=== PATIENT | female | born 1960 ===

== ENCOUNTER 2018-07-28 09:09 | Inpatient (IN) | payer OTHER ==
[2018-07-28] MEDS ORDERED: Morphine 4 mg/ml ISec IVP STA ×2 (10:36→14:57)
--- NOTE | 2018-07-28 11:25 | RAD ---
Date of service: 07/28/2018 HISTORY: CP COMPARISON: 07/27/2014 FINDINGS: LUNGS: Opacity at right base possibly subsegmental atelectasis, versus pneumonia. Follow-up advised.. PLEURA: Elevated right hemidiaphragm. Opacity at right costophrenic angle may reflect small pleural effusion, new since prior examination. No left pleural effusion. No pneumothorax. CARDIOVASCULAR: No aortic atherosclerotic calcification present. Normal cardiac size. No pulmonary vascular congestion. OSSEOUS STRUCTURES: No significant abnormalities. VISUALIZED UPPER ABDOMEN: Normal. OTHER FINDINGS: None. IMPRESSION: Opacity at right base, possibly subsegmental atelectasis, versus pneumonia. Follow-up advised. Possible small right pleural effusion. Mildly elevated right hemidiaphragm.
--- NOTE | 2018-07-28 11:45 | ED PDOC ---
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 Patient states worsening symptoms this morning with sudden onset of midsternal CP described as heaviness with radiation of pain to the top of her head, then radiating to the rest of the R side of her body. Patient states similar body aches in the past secondary to lupus and informs taking flexeril and oxycodone at home when symptoms exacerbate. Patient additionally informs associated nausea, dizziness and dysuria but denies any other somatic complaints. Patient states that she was recently examined by her pmd and was advised that she has a mass in the L breast that needs further evaluation with US or mammogram. Patient denies any fever, chills, abdominal pain, diarrhea, urinary frequency, hematuria, back pain, dizziness, shortness of breath, neck pain, or any other complaints. PMD: Dr. Dozier Time/Duration: 1 week Symptom Onset: Gradual Symptom Course: Unchanged Activities at Onset: Light Context: Home Past Medical History - Provider Review Nursing Documentation Reviewed: Yes - Tetanus Immunization Tetanus Immunization: Unknown - Cardiac Hx Cardiac Disorders: No - Pulmonary Hx Respiratory Disorders: Yes Hx Asthma: Yes Hx Bronchitis: Yes Hx Pneumonia: Yes - Neurological Hx Neurological Disorder: No - HEENT Hx HEENT Disorder: Yes - Renal Hx Renal Disorder: Yes Hx Kidney Stones: Yes - Endocrine/Metabolic Hx Endocrine Disorders: Yes Hx Systemic Lupus Erythematosus: Yes - Hematological/Oncological Hx Blood Disorders: No - Integumentary Hx Dermatological Disorder: No - Musculoskeletal/Rheumatological Hx Musculoskeletal Disorders: Yes Hx Back Pain: Yes Hx Fractures: Yes - Gastrointestinal Hx Gastrointestinal Disorders: Yes Hx Gastroesophageal Reflux: Yes Hx Gastrointestinal Ulcer: Yes - Genitourinary/Gynecological Hx Genitourinary Disorders: Yes (BREAST TUMOR REMOVED(BENIGN) RIGHT,MYOMECTOMY,OVARIAN CYST,LUMPECTOMY RIGHT) - Psychiatric Hx Psychophysiologic Disorder: Yes Hx Anxiety: Yes Hx Substance Use: No - Surgical History Hx Appendectomy: Yes Hx Cholecystectomy: Yes Hx Hysterectomy: Yes Other/Comment: LAPAROSCOPY - Suicidal Assessment Feels Threatened In Home Enviroment: No Family/Social History - Physician Review Nursing Documentation Reviewed: Yes Family/Social History: Unknown Family HX Smoking Status: Heavy Smoker > 10 Cigarettes Daily Hx Alcohol Use: Yes Hx Substance Use: No Hx Substance Use Treatment: No Allergies/Home Meds Allergies/Adverse Reactions: Allergies erythromycin base Allergy (Verified 07/28/18 09:30) ANAPHYLAXIS Iodinated Contrast- Oral and IV Dye Allergy (Verified 07/28/18 09:30) ANAPHYLAXIS Penicillins Allergy (Verified 07/28/18 09:30) ANAPHYLAXIS shellfish derived Allergy (Verified 07/28/18 09:30) ANAPHYLAXIS IV Dye Allergy (Uncoded 09/30/14 14:03) ANAPHYLAXIS Home Medications: Home Meds Medication Instructions Recorded Confirmed Albuterol HFA [Ventolin HFA 90 1 puff INH QID 10/02/13 07/28/18 mcg/actuation (8 g)] Oxycodone Hydrochloride [Oxycodone 5 mg PO BID 10/02/13 07/28/18 HCl] Review of Systems - Physician Review All systems were reviewed & negative as marked: Yes - Review of Systems Constitutional: absent: Fevers Respiratory: absent: SOB Cardiovascular: Chest Pain (chest heaviness) Gastrointestinal: Nausea. absent: Abdominal Pain, Diarrhea, Vomiting Genitourinary Female: Dysuria Musculoskeletal: Other (generalized body aches). absent: Back Pain, Neck Pain Skin: absent: Rash Neurological: absent: Dizziness Psychiatric: absent: Anxiety, Depression Physical Exam Vital Signs Reviewed: Yes Vital Signs Temp Pulse Resp BP Pulse Ox 07/28/18 10:16 98.2 F 95 H 17 120/78 98 07/28/18 09:31 98.5 F 92 H 19 144/81 98 Temperature: Afebrile Blood Pressure: Normal Pulse: Regular Respiratory Rate: Normal Appearance: Positive for: Well-Appearing, Non-Toxic, Comfortable Pain Distress: Moderate Mental Status: Positive for: Alert and Oriented X 3 - Systems Exam Head: Present: Atraumatic, Normocephalic Pupils: Present: PERRL Extroacular Muscles: Present: EOMI Conjunctiva: Present: Normal Mouth: Present: Moist Mucous Membranes Neck: Present: Normal Range of Motion. No: Meningeal Signs, Lymphadenopathy Respiratory/Chest: Present: Clear to Auscultation, Good Air Exchange. No: Respiratory Distress, Accessory Muscle Use Cardiovascular: Present: Regular Rate and Rhythm, Normal S1, S2. No: Murmurs Abdomen: No: Tenderness, Distention, Peritoneal Signs Back: Present: Normal Inspection Upper Extremity: Present: Normal Inspection. No: Cyanosis, Edema Lower Extremity: Present: Normal Inspection. No: Edema Neurological: Present: GCS=15, CN II-XII Intact, Speech Normal, Motor Func Grossly Intact, Normal Sensory Function Skin: Present: Warm, Dry, Normal Color. No: Rashes Psychiatric: Present: Alert, Oriented x 3, Normal Insight, Normal Concentration Medical Decision Making ED Course and Treatment: 07/28/18 10:35 Impression: 58 year old female presents to the Emergency department complaining of generalized body aches. Plan: -- EKG -- Labs -- Chest X-ray -- Flexeril -- Morphine -- Zofran -- Urine Culture -- Urinalysis -- Reassess and disposition Prior Visits: Notes and results from previous visits were reviewed. Progress Notes: CXR : Opacity at right base, possibly segmental atelectasis, versus pneumonia. Possible small right pleural effusion. Mildly elevated right hemidiaphragm. Malcolm Blackwell MD. (Patient had a normal CXR on 07/27/14) EKG: NSR at 89 bpm, prolonged QT, (-) acute ST changes, as read by GARFIELD. Labs reviewed : wbc 7.1, d-dimer 671, trop (-), UA + UTI. Patient has a strong PCN allergy with development of rash and facial swelling as per patinet. Levaquin 750 mg IV ordered to treat UTI and possible pneumonia. On reevaluation, patient reports mild improvement of pain, still c/o pain to the R lower rib, denies any SOB, N/V. On exam, patient remains awake alert and oriented 3 in mild painful distress. Diagnostic results reviewed with the patient, considering that the patient's d-dimer is (+) with strong h/o breast cancer, VQ scan ordered to r/o PE since the patient is allergic to IV contrast dye. Nuclear medicine was called, who states that the VQ scan can not be performed as there are no radio isotopes available. 16:20 Case d/w hospitalist Dr. Oviedo who agree with plan for obs for CP r/o PE, possible pneumonia and UTI. Agrees with giving lovenox SC for now. Lovenox SC ordered. 16:30 As per nuclear med, there is a global shortage of radio isotopes and there won't be any available for days, the hospitalist was notified. - RAD Interpretation Radiology Orders: 07/28/18 10:35 CHEST PORTABLE [RAD] Stat - Medication Orders Current Medication Orders: Discontinued Medications Cyclobenzaprine HCl (Flexeril) 10 mg PO STAT STA Stop: 07/28/18 10:37 Morphine Sulfate (Morphine) 4 mg IVP STAT STA Stop: 07/28/18 10:37 Ondansetron HCl (Zofran Inj) 4 mg IVP STAT STA Stop: 07/28/18 10:37 - PA / PRISON TEACHER / Resident Statement MD/DO has reviewed & agrees with the documentation as recorded. - Scribe Statement The provider has reviewed the documentation as recorded by the Scribe Jevon Pino. All medical record entries made by the Scribe were at my direction and personally dictated by me. I have reviewed the chart and agree that the record accurately reflects my personal performance of the history, physical exam, medical decision making, and the department course for this patient. I have also personally directed, reviewed, and agree with the discharge instructions and disposition. Disposition/Present on Arrival - Present on Arrival Any Indicators Present on Arrival: No History of DVT/PE: No History of Uncontrolled Diabetes: No Urinary Catheter: No History of Decub. Ulcer: No History Surgical Site Infection Following: None - Disposition Have Diagnosis and Disposition been Completed?: Yes Diagnosis: Chest pain, Pneumonia, UTI (urinary tract infection) Disposition: HOSPITALIZED Disposition Time: 16:35 Patient Plan: Observation Condition: STABLE
[2018-07-28 11:57] LABS: BASO # 0.03 K/mm3 (0.0-2.0); BASO % 0.4 % (0.0-3.0); EOS # 0.5 (0.0-0.7); EOS % 6.9 % (1.5-5.0); GRAN # 4.41 (1.4-6.5); GRAN % 62.5 % (50.0-68.0); HEMOGLOBIN 12.8 g/dL (12.0-16.0); LYMPH # 1.5 (1.2-3.4); LYMPH % 21.1 % (22.0-35.0); MEAN CELL VOLUME 88.2 fl (80.0-105.0); MEAN CORPUSCULAR HEMOGLOBIN 28.4 pg (25.0-35.0); MEAN CORPUSCULAR HGB CONC 32.2 g/dl (31.0-37.0); MEAN PLATELET VOLUME 8.6 fl (7.0-11.0); MONO # 0.6 (0.1-0.6); MONO % 9.1 % (1.0-6.0); RBC 4.51 10^6/uL (3.5-6.1); RED CELL DISTRIBUTION WIDTH 13.5 % (11.5-14.5); WHITE BLOOD COUNT 7.1 10^3/uL (4.5-11.0)
[2018-07-28 11:58] LABS: ALT/SGPT 24 U/L (7-56); AST/SGOT 35 U/L (14-36); BLOOD UREA NITROGEN 8 mg/dL (7-21); GFR NON-AFRICAN AMERICAN > 60
[2018-07-28 12:00] LABS: PH,URINE 7.5 (4.7-8.0); URINE BILIRUBIN NEGATIVE (NEGATIVE); URINE BLOOD SMALL (NEGATIVE); URINE GLUCOSE (UA) NEGATIVE (NEGATIVE); URINE LEUKOCYTE ESTERASE MODERATE Leu/uL (NEGATIVE); URINE PROTEIN NEGATIVE mg/dL (<30 mg/dL); URINE UROBILINOGEN 0.2 E.U./dL (<1 E.U./dL)
[2018-07-28] MEDS ORDERED: Potassium Chloride 20 mEq/15 ml LIQ UD PO STA (12:03)
[2018-07-28 12:04] LABS: URINE APPEARANCE CLEAR (CLEAR); URINE COLOR YELLOW (YELLOW)
[2018-07-28 12:09] LABS: TROPONIN I < 0.01 ng/mL
[2018-07-28 12:48] LABS: INR 0.95; PARTIAL THROMBOPLASTIN TIME 28.1 Seconds (25.1-36.5); PROTHROMBIN TIME 10.9 SECONDS (9.4-12.5)
[2018-07-28 12:55] LABS: URINE WBC 15 - 20 /hpf (0-6)
[2018-07-28 12:56] LABS: URINE BACTERIA MANY (NEG)
--- NOTE | 2018-07-28 12:56 | CARD ---
APPROVED REPORT Date of service: 07/28/2018 EKG Measurement Heart [id number] <Conclusion> Normal sinus rhythm Somatic Tremors.
[2018-07-28] MEDS ORDERED: levoFLOXacin 750 mg in D5W 150 ML BAG IVPB STA (13:03)
[2018-07-28] MEDS ORDERED: Potassium Chloride 20 mEq/15 ml LIQ UD PO ONE (13:05)
[2018-07-28] MEDS ORDERED: Enoxaparin 80 mg Syringe SC STA (16:28)
[2018-07-28] MEDS ORDERED: Potassium Chloride 20 mEq ER Tab PO STA (17:14)
[2018-07-28] MEDS ORDERED: Albuterol-Ipratrop 3 mg / 0.5 (3 ml) UD IH PRN (19:03)
--- NOTE | 2018-07-28 19:20 | CP.PCM.HP ---
<Harley Dorantes - Last Filed: 07/28/18 19:16> History of Present Illness - History of Present Illness History of Present Illness: PGY-1 Medicine History and Physical for Dr. Skinner Ms. Feldman is a 58 yo female with extensive past medical history that includes SLE, hyperthyroidism, RA, CREST syndrome, gastritis, breast cancer s/p R lumpectomy presenting to the ED with worsening generalized R sided pain x 1-2 weeks. Patient describes pain as sharp, shooting from top of the head all the way down to her foot on the R side. She endorses chest pain and chest wall tenderness, as well as pleuritic chest pain. She initially thought the pain might be related to a mechanical fall she sustained at work on 05/28. Patient states she fell on her L side, "cracked one of my ribs", denies head trauma or LOC. Patient was worked up for fall by her PMD (Dr. Sonia Dozier), unclear what extent of workup was. However, current symptoms are only on R side. Patient endorses body aches in the past 2/2 lupus, has taken flexeril and oxycodone at home for exacerbations. Patient also endorses associated nausea, dizziness, diarrhea. She has had dysuria for the past month with no extensive workup. She also c/o white floaters in her eyes for the past 2 days, was seen by ophthalmology a few months ago, "everything was normal". No fevers/chills, headaches, sob, cough, vomiting, constipation. PMHx: SLE, hyperthyroidism, RA, CREST syndrome, gastritis, breast cancer s/p R lumpectomy PSHx: "14 surgeries" including R lumpectomy, hysterectomy, appendectomy, cholecystectomy Allergies: erythromycin (anaphylaxis), IV contrast and dye (anaphylaxis), PCN (anaphylaxis), shellfish (anaphylaxis) Home Medications: list is extensive; f/u Garrett Conteh-- Meds most recently filled (June 2018) include: Flexeril Vit D 50,000 units Nitro-Bid 1/2 inch QID Alprazolam 2 mg PO TID PRN Oxycodone 10 mg PO BID Fluticasone prn Methotrexate 2.5 mg PO once/week (patient states Saturday) Dicyclomine 10 mg PO BID PRN Ranitidine 150 mg PO BID K-ER 2 tabs daily Sucralfate 1 gm BID Meloxicam 7.5 mg 1-2 tablets PO Daily Tramadol Diclofenac Ventolin FHx: Mother, living--stomach ca, ovarian ca, hypokalemia Father-- of MD @ 55 yo, CVA, DM, acute renal failure Social Hx: +tobacco > 10 cigs/day, + alcohol, denies illicit drug use PMD: Dr. Sonia Dozier Present on Admission - Present on Admission Any Indicators Present on Admission: No Review of Systems - Constitutional Constitutional: Chills, Weakness (R sided weakness). absent: Fever - EENT Eyes: Change in Vision (white floaters x 2 days) Ears: As Per HPI. absent: Disequilibrium - Cardiovascular Cardiovascular: Chest Pain - Gastrointestinal Gastrointestinal: Abdominal Pain, Diarrhea, Dysphagia, Heartburn, Nausea. absent: Constipation, Vomiting - Genitourinary Genitourinary: Dysuria. absent: Difficulty Urinating, Flank Pain, Hematuria - Musculoskeletal Musculoskeletal: Arthralgias, Back Pain (chronic), Limited Range of Motion (RUE and RLE), Muscle Weakness (R sided), Myalgias (generalized, chronic ), Numbness (R sided) - Neurological Neurological: Dizziness, Numbness (R sided), Weakness (R sided), Other Visual Disturbances (white floaters x 2days) - Psychiatric Psychiatric: Abnormal Sleep Pattern, Anxiety Past Patient History - Tetanus Immunizations Tetanus Immunization: Unknown - Past Social History Smoking Status: Heavy Smoker > 10 Cigarettes Daily - CARDIAC Hx Cardiac Disorders: No - PULMONARY Hx Respiratory Disorders: Yes Hx Asthma: Yes Hx Bronchitis: Yes Hx Pneumonia: Yes - NEUROLOGICAL Hx Neurological Disorder: No - HEENT Hx HEENT Problems: Yes - RENAL Hx Chronic Kidney Disease: Yes Hx Kidney Stones: Yes - ENDOCRINE/METABOLIC Hx Endocrine Disorders: Yes Hx Systemic Lupus Erythematosus: Yes - HEMATOLOGICAL/ONCOLOGICAL Hx Blood Disorders: No - INTEGUMENTARY Hx Dermatological Problems: No - MUSCULOSKELETAL/RHEUMATOLOGICAL Hx Musculoskeletal Disorders: Yes Hx Back Pain: Yes Hx Fractures: Yes - GASTROINTESTINAL Hx Gastrointestinal Disorders: Yes Hx Gastroesophageal Reflux: Yes - GENITOURINARY/GYNECOLOGICAL Hx Genitourinary Disorders: Yes (BREAST TUMOR REMOVED(BENIGN) RIGHT,MYOMECTOMY,OVARIAN CYST,LUMPECTOMY RIGHT) - PSYCHIATRIC Hx Psychophysiologic Disorder: Yes Hx Anxiety: Yes Hx Substance Use: No - SURGICAL HISTORY Hx Appendectomy: Yes Hx Cholecystectomy: Yes Hx Hysterectomy: Yes Other/Comment: LAPAROSCOPY Meds Allergies/Adverse Reactions: Allergies Allergy/AdvReac Type Severity Reaction Status Date / Time erythromycin base Allergy ANAPHYLAXIS Verified 07/28/18 09:30 Iodinated Contrast- Oral and Allergy ANAPHYLAXIS Verified 07/28/18 09:30 IV Dye Penicillins Allergy ANAPHYLAXIS Verified 07/28/18 09:30 shellfish derived Allergy ANAPHYLAXIS Verified 07/28/18 09:30 IV Dye Allergy ANAPHYLAXIS Uncoded 09/30/14 14:03 Physical Exam - Constitutional Appears: In Acute Distress (very anxious, emotional) - Head Exam Head Exam: ATRAUMATIC, NORMAL INSPECTION, NORMOCEPHALIC - Eye Exam Eye Exam: EOMI, Normal appearance - ENT Exam ENT Exam: Mucous Membranes Moist, Normal Exam - Neck Exam Neck exam: Positive for: Full Rom, Normal Inspection. Negative for: Tenderness - Respiratory Exam Respiratory Exam: Chest Wall Tenderness, Decreased Breath Sounds, Clear to Auscultation Bilateral. absent: Accessory Muscle Use, Rales, Rhonchi, Wheezes, Stridor - Cardiovascular Exam Cardiovascular Exam: REGULAR RHYTHM, +S1, +S2. absent: Diastolic murmur, Systolic Murmur - GI/Abdominal Exam GI & Abdominal Exam: Normal Bowel Sounds, Soft, Tenderness (R>L). absent: Distended, Firm, Guarding, Organomegaly, Rigid - Extremities Exam Extremities exam: Positive for: normal capillary refill, normal inspection, pedal pulses present. Negative for: calf tenderness, pedal edema - Back Exam Back exam: NORMAL INSPECTION - Neurological Exam Neurological exam: Alert, CN II-XII Intact, Oriented x3 - Psychiatric Exam Psychiatric exam: Agitated, Anxious - Skin Skin Exam: Dry, Intact, Normal Color, Warm Results - Vital Signs Recent Vital Signs: Last Vital Signs Temp 97.4 F L 07/28/18 14:00 Pulse 86 07/28/18 14:00 Resp 17 07/28/18 14:00 BP 114/75 07/28/18 14:00 Pulse Ox 95 07/28/18 14:00 - Labs Result Diagrams: 07/28/18 11:30 07/28/18 11:30 Labs: Laboratory Results - last 24 hr 07/28/18 07/28/18 07/28/18 11:30 11:30 11:30 WBC 7.1 RBC 4.51 Hgb 12.8 Hct 39.8 MCV 88.2 MCH 28.4 MCHC 32.2 RDW 13.5 Plt Count 278 MPV 8.6 Gran % 62.5 Lymph % (Auto) 21.1 L Alexander % (Auto) 9.1 H Eos % (Auto) 6.9 H Baso % (Auto) 0.4 Gran # 4.41 Lymph # (Auto) 1.5 Alexander # (Auto) 0.6 Eos # (Auto) 0.5 Baso # (Auto) 0.03 PT 10.9 INR 0.95 APTT 28.1 D-Dimer, Quantitative 671 H Sodium Potassium Chloride Carbon Dioxide Anion Gap BUN Creatinine Est GFR ( Amer) Est GFR (Non-Af Amer) Random Glucose Calcium Magnesium Total Bilirubin AST ALT Alkaline Phosphatase Lactate Dehydrogenase Total Creatine Kinase Troponin I Total Protein Albumin Globulin Albumin/Globulin Ratio Urine Color Yellow Urine Appearance Clear Urine pH 7.5 Ur Specific [place] 1.010 Urine Protein Negative Urine Glucose (UA) Negative Urine Ketones Negative Urine Blood Small H Urine Nitrate Negative Urine Bilirubin Negative Urine Urobilinogen 0.2 Ur Leukocyte Esterase Moderate H Urine RBC 2 - 5 Urine WBC 15 - 20 Ur Epithelial Cells 4 - 5 Urine Bacteria Many 07/28/18 11:30 WBC RBC Hgb Hct MCV MCH MCHC RDW Plt Count MPV Gran % Lymph % (Auto) Alexander % (Auto) Eos % (Auto) Baso % (Auto) Gran # Lymph # (Auto) Alexander # (Auto) Eos # (Auto) Baso # (Auto) PT INR APTT D-Dimer, Quantitative Sodium 142 Potassium 3.2 L Chloride 102 Carbon Dioxide 31 Anion Gap 12 BUN 8 Creatinine 0.9 Est GFR ( Amer) > 60 Est GFR (Non-Af Amer) > 60 Random Glucose 114 H Calcium 9.0 Magnesium 2.1 Total Bilirubin 0.4 AST 35 ALT 24 Alkaline Phosphatase 222 H Lactate Dehydrogenase 430 Total Creatine Kinase 48 Troponin I < 0.01 Total Protein 8.1 Albumin 4.0 Globulin 4.1 Albumin/Globulin Ratio 1.0 L Urine Color Urine Appearance Urine pH Ur Specific [place] Urine Protein Urine Glucose (UA) Urine Ketones Urine Blood Urine Nitrate Urine Bilirubin Urine Urobilinogen Ur Leukocyte Esterase Urine RBC Urine WBC Ur Epithelial Cells Urine Bacteria Assessment & Plan - Assessment and Plan (Free Text) Assessment: 58 yo F with PMHx including SLE, RA, CREST syndrome, gastritis, breast cancer s/p R lumpectomy presenting with generalized R sided pain, sharp R abdominal pain, pleuritic chest pain, and R sided weakness/numbness. Plan: Pleuritic chest pain, Decreased breath sounds--r/o PE vs PNA -D dimer: 671 -CXR: opacity R lung base, subsegmental atelectasis vs PNA; Possible small R pleural effusion, mildly elevated R hemidiaphragm -EKG: NSR @ 89 bpm, somatic tremors -duonebs prn -Pulmonology consulted R sided numbness/weakness--r/o CVA -neurochecks qshift -pt/ot eval -duplex b/l LE -head CT w/o contrast -Neurology consulted Dysphagia, hx hiatal hernia, gastritis -aspiration precautions -puree, thin liquid diet -speech and swallow eval -continue home dicyclomine, carofate -protonix -f/u abdominal u/s UTI -pt afebrile, no leukocytosis -UA: +Bacteria, LE, small blood -f/u BCx, UCx -levofloxacin 750 mg x1 in ED -levofloxacin 250 mg IV [place] Hx anxiety -continue home alprazolam PPx, Diet, Disposition -DVT: lovenox -GI: protonix -Diet: puree, thin liquid Case discussed with Dr. Brody Dorantes DO, PGY-1 <Valerie Skinner R - Last Filed: 07/30/18 09:05> Results - Vital Signs Recent Vital Signs: Last Vital Signs Temp 97.5 F L 07/30/18 06:00 Pulse 74 07/30/18 06:00 Resp 20 07/30/18 06:00 BP 97/68 L 07/30/18 06:00 Pulse Ox 96 07/30/18 06:00 - Labs Result Diagrams: 07/30/18 05:30 07/30/18 05:30 Labs: Laboratory Results - last 24 hr 07/29/18 07/29/18 07/29/18 07:50 08:00 08:00 WBC 7.3 RBC 4.34 Hgb 12.2 Hct 38.6 MCV 88.9 MCH 28.1 MCHC 31.6 RDW 13.8 Plt Count 266 MPV 8.8 Gran % 63.2 Lymph % (Auto) 18.7 L Alexander % (Auto) 9.9 H Eos % (Auto) 8.1 H Baso % (Auto) 0.1 Gran # 4.58 Lymph # (Auto) 1.4 Alexander # (Auto) 0.7 H Eos # (Auto) 0.6 Baso # (Auto) 0.01 Sodium 140 Potassium 3.6 Chloride 100 Carbon Dioxide 31 Anion Gap 13 BUN 8 Creatinine 1.1 Est GFR ( Amer) > 60 Est GFR (Non-Af Amer) 51 Random Glucose 123 H Hemoglobin A1c 5.8 Calcium 8.9 Total Bilirubin 0.6 GGT AST 32 ALT 20 Alkaline Phosphatase 204 H Total Protein 7.6 Albumin 3.7 Globulin 4.0 Albumin/Globulin Ratio 0.9 L Lipase 07/29/18 07/30/18 07/30/18 16:00 05:30 05:30 WBC 6.6 RBC 4.59 Hgb 12.6 Hct 40.3 MCV 87.8 MCH 27.5 MCHC 31.3 RDW 13.9 Plt Count 298 MPV 9.0 Gran % 50.8 Lymph % (Auto) 26.6 Alexander % (Auto) 10.8 H Eos % (Auto) 11.6 H Baso % (Auto) 0.2 Gran # 3.34 Lymph # (Auto) 1.8 Alexander # (Auto) 0.7 H Eos # (Auto) 0.8 H Baso # (Auto) 0.01 Sodium 140 Potassium 3.6 Chloride 101 Carbon Dioxide 31 Anion Gap 12 BUN 9 Creatinine 1.1 Est GFR ( Amer) > 60 Est GFR (Non-Af Amer) 51 Random Glucose 113 H Hemoglobin A1c Calcium 9.2 Total Bilirubin 0.6 GGT 156 H AST 36 ALT 23 Alkaline Phosphatase 200 H Total Protein 7.6 Albumin 3.7 Globulin 3.9 Albumin/Globulin Ratio 0.9 L Lipase 43 Attending/Attestation - Attestation I have personally seen and examined this patient.: Yes I have fully participated in the care of the patient.: Yes I have reviewed all pertinent clinical information: Yes Notes (Text): Patient seen and examined by me with resident at 5PM with resident 07/28/18. Case including HPI, physical exam, and assessment and plan discussed with resident. Agree with above with following additions/corrections. Patient is a 58-year-old female past medical history significant for SLE, thyroid nodules, rheumatoid arthritis, Crestor syndrome, gastritis, anxiety, and breast cancer status post right lumpectomy that presented to the emergency room with right sided pain and weakness. Patient states that this is going on for approximately 2 weeks. Pain is becoming worse. Pain is sharp and shooting from the top of her head down to her foot on the right side. Pain is worse around right upper quadrant of the abdomen. Patient also has chest wall tenderness. She states that she fell on 05/28/2018 at work and was told she had bruised ribs on the left side. She states that she fell this pain may be related to that fall. Patient states she tried oxycodone and Flexeril home with no relief. Patient also complains of abdominal pain and diarrhea and states that this is chronic and has been going on for many years. Patient also complains of dysphasia and being unable to swallow appropriately. She states that she has been following the beater boss and may need an EGD. She states she usually chops up her food or blends her food at home. Patient also complains of dysuria. She said this has also been going on for some time. This is she has had multiple urinalys is done with her primary care doctor which have not shown infection. Patient also complains of seeing floaters in her eyes for the past couple of days. She states that she saw an dictating machine transcriber a few months ago and "everything was normal." She also has associated dizziness. Patient denies any shortness of breath. No coughing. No fevers or chills. Patient has chronic neck and back pain. 12 point review of systems reviewed by me. See above HPI, all other systems negative. Physical exam: General: Awake and lying in bed in no acute distress HEENT: Normocephalic, atraumatic. Extraocular muscles intact, pupils equal and reactive, no scleral icterus. Oropharynx is pink. Positive dry mucous membranes. Neck is supple. Hearing grossly intact. Ears and nose externally unremarkable. Cardiovascular: Regular rhythm. Normal S1 and S2. No rubs or gallops appreciated Pulmonary: Normal respiratory effort. No rhonchi, rales, or wheezing appreciated. Gastrointestinal: Soft, nondistended. Positive generalized tenderness more prominent right upper quadrant. Positive bowel sounds all 4 quadrants. Positive voluntary guarding. Musculoskeletal: Moves all extremities. No calf tenderness. No CVA tenderness. No edema appreciated Central nervous system: AAO x3, CN 2-12 grossly intact. Right side upper and lower extremity weakness when compared to the left however, this may be secondary to patient's effort secondary to pain. Dermatologic: Skin warm and dry. Assessment and plan: Patient is a 58-year-old female past medical history significant for SLE, thyroid nodules, rheumatoid arthritis, Crest syndrome, gastritis, anxiety, and breast cancer status post right lumpectomy that presented to the emergency room with right sided pain and weakness. 1. Chest pain. Pleuritic. D-dimer is elevated. Patient unable to get CTA secondary to dye allergy. Unable to get VQ scan secondary to national isotope shortage. Patient not tachycardic or hypoxic. Unlikely PE. We'll Bilateral lower extremity venous Dopplers. I consulted, follow-up recommendations. Chest x-ray per radiologist shows opacity at right base, possibly some segmental atelectasis versus pneumonia, possible small right pleural effusion, mildly elevated right hemidiaphragm. We'll place on Levaquin for now. Troponin within normal limits. 2. Right sided weakness and pain. Rule out CVA. Placed on aspirin. Neurology consulted, follow-up recommendations. Head CT per radiology shows no acute intracranial abnormality. Placed on neurochecks. PT/OT eval and treat. 3. Dysphagia. Patient placed on pure diet for now. Follow-up swallow evaluat ion. 4. Abdominal pain. History of gastritis. Continue home Carafate and dicyclomine. Placed on Protonix. Follow-up abdominal ultrasound. 5. UTI. Patient symptomatic. Urine culture pending. Patient started on Levaquin secondary to allergies. 6. History of breast cancer. Patient states that she was recently diagnosed with a new lump on her left breast. Patient is following up outpatient for this. 7. SLE. Crest syndrome. Rheumatoid arthritis. Patient is on methotrexate at home. Pain may be secondary to lupus. Obtain a monitor for now. 8. Hypokalemia. Given potassium in the emergency room. Follow up repeat labs in the a.m. 9. Anxiety. Patient placed on alprazolam 1 mg 3 times a day as needed. 10. GI/DVT prophylaxis. Protonix/Lovenox 11. Patient is a full code Case was discussed in detail with the patient regarding current diagnosis and treatment plan. All questions answered.
--- NOTE | 2018-07-28 19:47 | US ---
HISTORY: Leg pain and swelling. Evaluate for DVT PHYSICIAN(S): Malcolm Galvan MD. TECHNIQUE: Duplex sonography and color-flow Doppler with graded compression were used to evaluate the deep venous systems of both lower extremities. FINDINGS: The visualized deep venous systems of both lower extremities are sonographically normal and compressible. Normal wave forms and augmentation are seen. There is no sonographic evidence for deep venous thrombosis in the visualized segments of both lower extremities. IMPRESSION: No sonographic evidence for deep venous thrombosis in the visualized segments of both lower extremities.
[2018-07-28] MEDS: Morphine 2 mg/ml ISec IVP PRN (23:00)
[2018-07-29] MEDS: DiphenhydrAMINE 12.5 mg/5 ml LIQ UD (5 ml) PO PRN ×2 (02:51→21:33)
[2018-07-29] MEDS: Morphine 2 mg/ml ISec IVP PRN ×5 (02:51→21:09)
[2018-07-29 03:59] VITALS: BMI 25.4
--- NOTE | 2018-07-29 07:27 | CP.PCM.CON ---
<BrodyJulián - Last Filed: 07/29/18 15:02> History of Present Illness - History of Present Illness History of Present Illness: Julián Skinner- Internal Medicine Resident- Consult Note on Behalf of Neurology Team Subjective: CC: right sided weakness and numbness HPI: Patient is a 58 year old female with PMHx including SLE, RA, CREST syndrome, gastritis, breast cancer s/p R lumpectomy who was admitted for evaluation and treatment of generalized right sided pain, abdominal pain, pleuritic chest pain, and right sided weakness/numbness. Neurology was consulted for right sided weakness/numbness. Patient seen and examined at bedside. Admits to experiencing fall at work yesterday which was mechanical in nature. Endorses that impact occurred on the left side of the body. Denied associated head trauma or loss of consciousness. Currently admits to dizziness and right sided weakness. D Patient denied tongue biting, confusion, palpitations, auditory/visual changes from baseline, and focal deficits. Further denies fever, chills, chest pain, shortness of breath, nausea, vomiting, diarrhea, constipation. 12 point ROS negative except as indicated in HPI Past Medical History: SLE, hyperthyroidism, RA, CREST syndrome, gastritis, breast cancer s/p R lumpectomy Past Surgical History: R breast lumpectomy, hysterectomy, appendectomy, cholecystectomy Allergies: erythromycin (anaphylaxis), IV contrast and dye (anaphylaxis), PCN (anaphylaxis), shellfish (anaphylaxis) Social Hx: admits to ETOH use, +tobacco > 10 cigs/day, denies illicit drug use Family Hx: Mother, living--stomach ca, ovarian cancer; Father-- of [place] @ 55 yo, CVA, DM, acute renal failure Home medications: please see med rec PMD: Dr. Sonia Dozier Physical Examination: - Constitutional Appears: No Acute Distress - Head Exam Head Exam: ATRAUMATIC, NORMAL INSPECTION, NORMOCEPHALIC - Eye Exam Eye Exam: EOMI, Normal appearance - ENT Exam ENT Exam: Mucous Membranes Moist, Normal Exam, No tongue laceration - Neck Exam Neck exam: Positive for: Full Rom, Normal Inspection - Respiratory Exam Respiratory Exam: NORMAL BREATHING PATTERN. Decreased Breath Sounds absent: Accessory Muscle Use, Rales, Rhonchi, Wheezes, Respiratory Distress - Cardiovascular Exam Cardiovascular Exam: REGULAR RHYTHM, +S1, +S2 - GI/Abdominal Exam GI & Abdominal Exam: Normal Bowel Sounds, Soft, Tender to palpation absent: Distended, Firm - Extremities Exam Extremities exam: Positive for: full ROM, normal capillary refill, normal ins pection, pedal pulses present - Neurological Exam Neurological exam: awake, alert, orientated x 3, responds to verbal stimuli, answers questions appropriately, follows commands, moves extremities past midline, muscle strength 5/5 left upper and lower extremities, RUE and RLE guarded secondary to pain, sensation is intact to touch throughout, CNII-CNXII intact bilaterally, no dysmetria - Psychiatric Exam Psychiatric exam: Normal Affect, Normal Mood - Skin Skin Exam: Intact, Normal Color, Warm Assessment and Plan: Patient is a 58 year old female with PMHx including SLE, RA, CREST syndrome, gastritis, breast cancer s/p R lumpectomy who was admitted for evaluation and treatment of generalized right sided pain, abdominal pain, pleuritic chest pain, and right sided weakness/numbness. Neurology was consulted for right sided weakness/numbness. Right sided weakness/numbness - 07/29/2018 CT head without contrast- no acute intracranial abnormality - cannot get contrast studies due to dye allergy - lipid profile, A1c testing ordered and pending - brain mri without contrast- ordered and pending - non-contrast CT of lumbosacral region ordered and pending - continue secondary stoke prevention: aspirin, cessation of cigarette smoking, blood pressure regulation, heart healthy diet, adequate physical activity - keep patient euglycemic, normothermic, and electrolytes within normal limits Abdominal Pain - patient states she has undergone an appendectomy and cholecystectomy - recommend surgical consult due to severe pain out of proportion to physical exam Patient seen, case discussed with, and plan approved by attending physician, Dr. Chambers. Past Patient History - Tetanus Immunizations Tetanus Immunization: Unknown - Past Social History Smoking Status: Never Smoked - CARDIAC Hx Cardiac Disorders: No - PULMONARY Hx Respiratory Disorders: Yes Hx Asthma: Yes Hx Bronchitis: Yes Hx Pneumonia: Yes - NEUROLOGICAL Hx Neurological Disorder: No - HEENT Hx HEENT Problems: Yes - RENAL Hx Chronic Kidney Disease: Yes Hx Kidney Stones: Yes - ENDOCRINE/METABOLIC Hx Endocrine Disorders: Yes Hx Systemic Lupus Erythematosus: Yes - HEMATOLOGICAL/ONCOLOGICAL Hx Blood Disorders: No - INTEGUMENTARY Hx Dermatological Problems: No - MUSCULOSKELETAL/RHEUMATOLOGICAL Hx Musculoskeletal Disorders: Yes Hx Back Pain: Yes Hx Falls: Yes Hx Fractures: Yes - GASTROINTESTINAL Hx Gastrointestinal Disorders: Yes Hx Gastroesophageal Reflux: Yes - GENITOURINARY/GYNECOLOGICAL Hx Genitourinary Disorders: Yes (BREAST TUMOR REMOVED(BENIGN) RIGHT,MYOM ECTOMY,OVARIAN CYST,LUMPECTOMY RIGHT) - PSYCHIATRIC Hx Psychophysiologic Disorder: Yes Hx Anxiety: Yes - SURGICAL HISTORY Hx Appendectomy: Yes Hx Cholecystectomy: Yes Hx Hysterectomy: Yes Other/Comment: LAPAROSCOPY Meds Allergies/Adverse Reactions: Allergies Allergy/AdvReac Type Severity Reaction Status Date / Time erythromycin base Allergy ANAPHYLAXIS Verified 07/28/18 09:30 Iodinated Contrast- Oral and Allergy ANAPHYLAXIS Verified 07/28/18 09:30 IV Dye Penicillins Allergy ANAPHYLAXIS Verified 07/28/18 09:30 shellfish derived Allergy ANAPHYLAXIS Verified 07/28/18 09:30 IV Dye Allergy ANAPHYLAXIS Uncoded 09/30/14 14:03 - Medications Medications: Current Medications Albuterol/Ipratropium (Duoneb 3 Mg/0.5 Mg (3 Ml) Ud) 3 ml IH Q2H PRN PRN Reason: Shortness of Breath Alprazolam (Xanax) 1 mg PO TID PRN; Protocol PRN Reason: Anxiety Aspirin (Ecotrin) 81 mg PO DAILY [facility] Dicyclomine HCl (Bentyl) 10 mg PO BID PRN PRN Reason: Irritable bowel symptoms Diphenhydramine HCl (Benadryl) 25 mg PO HS PRN PRN Reason: Insomnia Last Admin: 07/29/18 02:51 Dose: 25 mg Enoxaparin Sodium (Lovenox) 40 mg SC DAILY [facility]; Protocol Levofloxacin/Dextrose (Levaquin 500mg) 500 mg in 100 mls @ 100 mls/hr IVPB [facility]; Protocol Morphine Sulfate (Morphine) 2 mg IVP Q4 PRN PRN Reason: Pain, severe (8-10) Last Admin: 07/29/18 02:51 Dose: 2 mg Pantoprazole Sodium (Protonix Inj) 40 mg IVP DAILY [facility] Sucralfate (Carafate Oral Susp) 1 gm PO BID [facility] Results - Vital Signs Recent Vital Signs: Last Vital Signs Temp 98.3 F 07/28/18 22:25 Pulse 90 07/28/18 22:25 Resp 18 07/29/18 00:30 BP 120/74 07/28/18 22:25 Pulse Ox 97 07/28/18 22:25 - Labs Result Diagrams: 07/29/18 08:00 07/29/18 08:00 Labs: Laboratory Results - last 24 hr 07/28/18 07/28/18 07/28/18 11:30 11:30 11:30 WBC 7.1 RBC 4.51 Hgb 12.8 Hct 39.8 MCV 88.2 MCH 28.4 MCHC 32.2 RDW 13.5 Plt Count 278 MPV 8.6 Gran % 62.5 Lymph % (Auto) 21.1 L [place] % (Auto) 9.1 H Eos % (Auto) 6.9 H Baso % (Auto) 0.4 Gran # 4.41 Lymph # (Auto) 1.5 [place] # (Auto) 0.6 Eos # (Auto) 0.5 Baso # (Auto) 0.03 PT 10.9 INR 0.95 APTT 28.1 D-Dimer, Quantitative 671 H Sodium Potassium Chloride Carbon Dioxide Anion Gap BUN Creatinine Est GFR ( Amer) Est GFR (Non-Af Amer) Random Glucose Calcium Magnesium Total Bilirubin AST ALT Alkaline Phosphatase Lactate Dehydrogenase Total Creatine Kinase Troponin I Total Protein Albumin Globulin Albumin/Globulin Ratio Urine Color Yellow Urine Appearance Clear Urine pH 7.5 Ur Specific [place] 1.010 Urine Protein Negative Urine Glucose (UA) Negative Urine Ketones Negative Urine Blood Small H Urine Nitrate Negative Urine Bilirubin Negative Urine Urobilinogen 0.2 Ur Leukocyte Esterase Moderate H Urine RBC 2 - 5 Urine WBC 15 - 20 Ur Epithelial Cells 4 - 5 Urine Bacteria Many 07/28/18 07/28/18 11:30 22:23 WBC RBC Hgb Hct MCV MCH MCHC RDW Plt Count MPV Gran % Lymph % (Auto) [place] % (Auto) Eos % (Auto) Baso % (Auto) Gran # Lymph # (Auto) [place] # (Auto) Eos # (Auto) Baso # (Auto) PT INR APTT D-Dimer, Quantitative Sodium 142 Potassium 3.2 L Chloride 102 Carbon Dioxide 31 Anion Gap 12 BUN 8 Creatinine 0.9 Est GFR ( Amer) > 60 Est GFR (Non-Af Amer) > 60 Random Glucose 114 H Calcium 9.0 Magnesium 2.1 Total Bilirubin 0.4 AST 35 ALT 24 Alkaline Phosphatase 222 H Lactate Dehydrogenase 430 Total Creatine Kinase 48 Troponin I < 0.01 < 0.01 Total Protein 8.1 Albumin 4.0 Globulin 4.1 Albumin/Globulin Ratio 1.0 L Urine Color Urine Appearance Urine pH Ur Specific [place] Urine Protein Urine Glucose (UA) Urine Ketones Urine Blood Urine Nitrate Urine Bilirubin Urine Urobilinogen Ur Leukocyte Esterase Urine RBC Urine WBC Ur Epithelial Cells Urine Bacteria <Yamilex Chambers - Last Filed: 07/29/18 22:38> Meds - Medications Medications: Current Medications Acetaminophen (Tylenol 325mg Tab) 650 mg PO Q6H PRN PRN Reason: Headache Last Admin: 07/29/18 14:17 Dose: 650 mg Albuterol/Ipratropium (Duoneb 3 Mg/0.5 Mg (3 Ml) Ud) 3 ml IH Q2H PRN PRN Reason: Shortness of Breath Alprazolam (Xanax) 1 mg PO TID PRN; Protocol PRN Reason: Anxiety Last Admin: 07/29/18 14:48 Dose: 1 mg Aspirin (Ecotrin) 81 mg PO DAILY [facility] Last Admin: 07/29/18 13:35 Dose: 81 mg Dicyclomine HCl (Bentyl) 10 mg PO BID PRN PRN Reason: Irritable bowel symptoms Diphenhydramine HCl (Benadryl) 25 mg PO HS PRN PRN Reason: Insomnia Last Admin: 07/29/18 21:33 Dose: 25 mg Enoxaparin Sodium (Lovenox) 40 mg SC DAILY [facility]; Protocol Last Admin: 07/29/18 10:34 Dose: 40 mg Levofloxacin/Dextrose (Levaquin 500mg) 500 mg in 100 mls @ 100 mls/hr IVPB DAILY [facility]; Protocol Last Admin: 07/29/18 10:35 Dose: 100 mls/hr Morphine Sulfate (Morphine) 2 mg IVP Q4 PRN PRN Reason: Pain, severe (8-10) Last Admin: 07/29/18 21:09 Dose: 2 mg Pantoprazole Sodium (Protonix Inj) 40 mg IVP DAILY [facility] Last Admin: 07/29/18 10:34 Dose: 40 mg Sucralfate (Carafate Oral Susp) 1 gm PO BID [facility] Last Admin: 07/29/18 17:33 Dose: 1 gm Results - Vital Signs Recent Vital Signs: Last Vital Signs Temp 97.9 F 07/29/18 14:00 Pulse 97 H 07/29/18 14:00 Resp 20 07/29/18 14:00 BP 151/84 H 07/29/18 14:00 Pulse Ox 94 L 07/29/18 14:00 - Labs Result Diagrams: 07/29/18 08:00 07/29/18 08:00 Labs: Laboratory Results - last 24 hr 07/28/18 07/29/18 07/29/18 22:23 07:50 07:50 WBC RBC Hgb Hct MCV MCH MCHC RDW Plt Count MPV Gran % Lymph % (Auto) [place] % (Auto) Eos % (Auto) Baso % (Auto) Gran # Lymph # (Auto) [place] # (Auto) Eos # (Auto) Baso # (Auto) Sodium Potassium Chloride Carbon Dioxide Anion Gap BUN Creatinine Est GFR ( Amer) Est GFR (Non-Af Amer) Random Glucose Hemoglobin A1c 5.8 Calcium Total Bilirubin AST ALT Alkaline Phosphatase Troponin I < 0.01 Total Protein Albumin Globulin Albumin/Globulin Ratio Triglycerides 143 Cholesterol 140 LDL Cholesterol Direct 87 HDL Cholesterol 33 Lipase 07/29/18 07/29/18 07/29/18 08:00 08:00 16:00 WBC 7.3 RBC 4.34 Hgb 12.2 Hct 38.6 MCV 88.9 MCH 28.1 MCHC 31.6 RDW 13.8 Plt Count 266 MPV 8.8 Gran % 63.2 Lymph % (Auto) 18.7 L [place] % (Auto) 9.9 H Eos % (Auto) 8.1 H Baso % (Auto) 0.1 Gran # 4.58 Lymph # (Auto) 1.4 [place] # (Auto) 0.7 H Eos # (Auto) 0.6 Baso # (Auto) 0.01 Sodium 140 Potassium 3.6 Chloride 100 Carbon Dioxide 31 Anion Gap 13 BUN 8 Creatinine 1.1 Est GFR ( Amer) > 60 Est GFR (Non-Af Amer) 51 Random Glucose 123 H Hemoglobin A1c Calcium 8.9 Total Bilirubin 0.6 AST 32 ALT 20 Alkaline Phosphatase 204 H Troponin I Total Protein 7.6 Albumin 3.7 Globulin 4.0 Albumin/Globulin Ratio 0.9 L Triglycerides Cholesterol LDL Cholesterol Direct HDL Cholesterol Lipase 43 Assessment & Plan - Assessment and Plan (Free Text) Assessment: All medical record entries made by the Resident were at my direction and personally dictated by me. I have reviewed the chart and agree that the record accurately reflects my personal performance of the history, physical exam, medical decision making, and the department course for this patient. I have also personally directed, reviewed, and agree with the discharge instructions and disposition.
[2018-07-29 08:11] LABS: HDL CHOLESTEROL 33 mg/dL (29-60)
[2018-07-29 08:22] LABS: LDL CHOLESTEROL 87 mg/dL (0-129)
--- NOTE | 2018-07-29 08:27 | CT ---
Date of service: 07/28/2018 PROCEDURE: CT HEAD WITHOUT CONTRAST. HISTORY: R sided weakness/heaviness, r/o CVA COMPARISON: Comparison made with prior CT scan brain 09/30/2014. TECHNIQUE: Axial computed tomography images were obtained through the head/brain without intravenous contrast. Radiation dose: Total exam DLP = 778.97 mGy-cm. This CT exam was performed using one or more of the following dose reduction techniques: Automated exposure control, adjustment of the mA and/or kV according to patient size, and/or use of iterative reconstruction technique. FINDINGS: HEMORRHAGE: No acute parenchymal, subarachnoid or extra-axial hemorrhage. BRAIN: No mass effect or edema. No atrophy or chronic microvascular ischemic changes. VENTRICLES: No obstructive hydrocephalus. CALVARIUM: Unremarkable. PARANASAL SINUSES: Unremarkable as visualized. No significant inflammatory changes. MASTOID AIR CELLS: Unremarkable as visualized. No inflammatory changes. OTHER FINDINGS: None. IMPRESSION: No acute intracranial hemorrhage.
[2018-07-29 09:36] LABS: BASO # 0.01 K/mm3 (0.0-2.0); BASO % 0.1 % (0.0-3.0); EOS # 0.6 (0.0-0.7); EOS % 8.1 % (1.5-5.0); GRAN # 4.58 (1.4-6.5); GRAN % 63.2 % (50.0-68.0); HEMOGLOBIN 12.2 g/dL (12.0-16.0); LYMPH # 1.4 (1.2-3.4); LYMPH % 18.7 % (22.0-35.0); MEAN CELL VOLUME 88.9 fl (80.0-105.0); MEAN CORPUSCULAR HEMOGLOBIN 28.1 pg (25.0-35.0); MEAN CORPUSCULAR HGB CONC 31.6 g/dl (31.0-37.0); MEAN PLATELET VOLUME 8.8 fl (7.0-11.0); MONO # 0.7 (0.1-0.6); MONO % 9.9 % (1.0-6.0); RBC 4.34 10^6/uL (3.5-6.1); RED CELL DISTRIBUTION WIDTH 13.8 % (11.5-14.5); WHITE BLOOD COUNT 7.3 10^3/uL (4.5-11.0)
[2018-07-29 09:47] LABS: ALB/GLOB RATIO 0.9 (1.1-1.8); ALBUMIN 3.7 g/dL (3.0-4.8); ALT/SGPT 20 U/L (7-56); AST/SGOT 32 U/L (14-36); BLOOD UREA NITROGEN 8 mg/dL (7-21); CALCIUM 8.9 mg/dL (8.4-10.5); GFR NON-AFRICAN AMERICAN 51
[2018-07-29] MEDS ORDERED: levoFLOXacin 250 mg in D5W 250 MG/50 ML BAG IVPB SCH (10:00)
[2018-07-29] MEDS: Enoxaparin 40 mg Syringe SC SCH (10:34)
[2018-07-29] MEDS: Sucralfate 1 gm/10 ml Oral Susp UD PO SCH ×2 (10:34→17:33)
[2018-07-29] MEDS: levoFLOXacin 500 mg in D5W 500 MG/100 ML BAG IVPB SCH (10:35)
--- NOTE | 2018-07-29 11:53 | US ---
Date of service: 07/28/2018 HISTORY: sharp R abdominal pain COMPARISON: Correlation made with prior CT scan abdomen and pelvis dated 05/03/2013 TECHNIQUE: Sonographic evaluation of the abdomen. Study is limited due to patient's inability to move and complaints of pain during examination FINDINGS: LIVER: Measures 16.4 cm. Liver exhibits smooth contour though increased echotexture likely due to fatty infiltration however other infiltrative hepatocellular disease process not excluded. No definitive hepatic masses or collections seen on images presented.. No mass. No intrahepatic bile duct dilatation. GALLBLADDER: Cholecystectomy COMMON BILE DUCT: Measures 5.80 mm. No stones. No dilatation. PANCREAS: Unremarkable as visualized. No mass. No ductal dilatation. RIGHT KIDNEY: Measures 8.9 x 4.0 x 3.9 cm. Normal echogenicity. No calculus, mass, or hydronephrosis.. Multiple right renal cysts are present. LEFT KIDNEY: Measures 9.1 x 4.9 x 5.3cm. Normal echogenicity. No calculus, mass, or hydronephrosis. Multiple cysts are present. Previously noted nonobstructing calculus lower pole left kidney not appreciated on this study. SPLEEN: The spleen measures approximately 10.7 x 5.6 x 9.2 cm. There is a rounded approximately 4.4 x 3.3 x 4.2 cm complex appearing fluid collection in the splenic hilar region which is of the of uncertain etiology. Follow-up CT scan of the abdomen recommended for further evaluation. AORTA: No aneurysmal dilatation. IVC: Unremarkable. OTHER FINDINGS: None. IMPRESSION: Complex appearing fluid collection adjacent to the spleen. Rule out some hematoma versus other pathology. Follow-up CT scan recommended. Multiple bilateral renal cysts. Small nonobstructing calculus that was seen lower pole collecting system left kidney on prior CT scan not appreciated on this study. Suspect fatty hepatic infiltration however other infiltrative hepatocellular disease process not excluded.
--- NOTE | 2018-07-29 12:55 | CP.PCM.CON ---
History of Present Illness - History of Present Illness History of Present Illness: Reason for consultation: elevated D-Dimer 58F non smoker with a hx of SLE, RA, CREST syndrome, gastritis, breast cancer s/p R lumpectomy admitted for generalized right sided pain, abdominal pain, pleuritic chest pain, and right sided weakness/numbness. She points to below her right breast when asked where the pain is. It is reproducible when pushing upon it. Not exascerbated by exertion, no difficulty breathing. No calf t enderness. Denies palpitations, fever, chills, left chest pain, shortness of breath, nausea, vomiting, diarrhea, constipation. 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 Also report 4 miscarriages. ROS negative except as indicated in HPI Past Medical History: SLE, hyperthyroidism, RA, CREST syndrome, gastritis, breast cancer s/p R lumpectomy Past Surgical History: R breast lumpectomy, hysterectomy, appendectomy, cholecystectomy Allergies: erythromycin (anaphylaxis), IV contrast and dye (anaphylaxis), PCN (anaphylaxis), shellfish (anaphylaxis) Social Hx: admits to ETOH use, +tobacco > 10 cigs/day, denies illicit drug use Family Hx: Mother, living--stomach ca, ovarian cancer; Father-- of [place] @ 55 yo, CVA, DM, acute renal failure Home medications: please see med rec PMD: Dr. Sonia Dozier Past Patient History - Tetanus Immunizations Tetanus Immunization: Unknown - Past Social History Smoking Status: Never Smoked - CARDIAC Hx Cardiac Disorders: No - PULMONARY Hx Respiratory Disorders: Yes Hx Asthma: Yes Hx Bronchitis: Yes Hx Pneumonia: Yes - NEUROLOGICAL Hx Neurological Disorder: No - HEENT Hx HEENT Problems: Yes - RENAL Hx Chronic Kidney Disease: Yes Hx Kidney Stones: Yes - ENDOCRINE/METABOLIC Hx Endocrine Disorders: Yes Hx Systemic Lupus Erythematosus: Yes - HEMATOLOGICAL/ONCOLOGICAL Hx Blood Disorders: No - INTEGUMENTARY Hx Dermatological Problems: No - MUSCULOSKELETAL/RHEUMATOLOGICAL Hx Musculoskeletal Disorders: Yes Hx Back Pain: Yes Hx Falls: Yes Hx Fractures: Yes - GASTROINTESTINAL Hx Gastrointestinal Disorders: Yes Hx Gastroesophageal Reflux: Yes - GENITOURINARY/GYNECOLOGICAL Hx Genitourinary Disorders: Yes (BREAST TUMOR REMOVED(BENIGN) RIGHT,MYOMECTOMY,OVARIAN CYST,LUMPECTOMY RIGHT) - PSYCHIATRIC Hx Psychophysiologic Disorder: Yes Hx Anxiety: Yes - SURGICAL HISTORY Hx Appendectomy: Yes Hx Cholecystectomy: Yes Hx Hysterectomy: Yes Other/Comment: LAPAROSCOPY Meds Allergies/Adverse Reactions: Allergies Allergy/AdvReac Type Severity Reaction Status Date / Time erythromycin base Allergy ANAPHYLAXIS Verified 07/28/18 09:30 Iodinated Contrast- Oral and Allergy ANAPHYLAXIS Verified 07/28/18 09:30 IV Dye Penicillins Allergy ANAPHYLAXIS Verified 07/28/18 09:30 shellfish derived Allergy ANAPHYLAXIS Verified 07/28/18 09:30 IV Dye Allergy ANAPHYLAXIS Uncoded 09/30/14 14:03 - Medications Medications: Current Medications Albuterol/Ipratropium (Duoneb 3 Mg/0.5 Mg (3 Ml) Ud) 3 ml IH Q2H PRN PRN Reason: Shortness of Breath Alprazolam (Xanax) 1 mg PO TID PRN; Protocol PRN Reason: Anxiety Last Admin: 07/29/18 08:04 Dose: 1 mg Aspirin (Ecotrin) 81 mg PO DAILY [facility] Dicyclomine HCl (Bentyl) 10 mg PO BID PRN PRN Reason: Irritable bowel symptoms Diphenhydramine HCl (Benadryl) 25 mg PO HS PRN PRN Reason: Insomnia Last Admin: 07/29/18 02:51 Dose: 25 mg Enoxaparin Sodium (Lovenox) 40 mg SC DAILY [facility]; Protocol Last Admin: 07/29/18 10:34 Dose: 40 mg Levofloxacin/Dextrose (Levaquin 500mg) 500 mg in 100 mls @ 100 mls/hr IVPB DAILY [facility]; Protocol Last Admin: 07/29/18 10:35 Dose: 100 mls/hr Morphine Sulfate (Morphine) 2 mg IVP Q4 PRN PRN Reason: Pain, severe (8-10) Last Admin: 07/29/18 08:04 Dose: 2 mg Pantoprazole Sodium (Protonix Inj) 40 mg IVP DAILY [facility] Last Admin: 07/29/18 10:34 Dose: 40 mg Sucralfate (Carafate Oral Susp) 1 gm PO BID [facility] Last Admin: 07/29/18 10:34 Dose: 1 gm Physical Exam - Constitutional Appears: Well, Non-toxic - Head Exam Head Exam: ATRAUMATIC, NORMAL INSPECTION, NORMOCEPHALIC - Eye Exam Eye Exam: EOMI, Normal appearance, PERRL - Respiratory Exam Respiratory Exam: Clear to Auscultation Bilateral, NORMAL BREATHING PATTERN - Cardiovascular Exam Cardiovascular Exam: REGULAR RHYTHM Additional comments: tenderness to palpation below right breast, no masses - GI/Abdominal Exam GI & Abdominal Exam: Normal Bowel Sounds, Soft. absent: Tenderness - Skin Skin Exam: Dry, Normal Color, Warm Results - Vital Signs Recent Vital Signs: Last Vital Signs Temp 97.7 F 07/29/18 06:00 Pulse 91 H 07/29/18 10:14 Resp 20 07/29/18 06:00 BP 115/74 07/29/18 06:00 Pulse Ox 99 07/29/18 10:14 - Labs Result Diagrams: 07/29/18 08:00 07/29/18 08:00 Labs: Laboratory Results - last 24 hr 07/28/18 07/28/18 07/28/18 11:30 11:30 22:23 WBC RBC Hgb Hct MCV MCH MCHC RDW Plt Count MPV Gran % Lymph % (Auto) [place] % (Auto) Eos % (Auto) Baso % (Auto) Gran # Lymph # (Auto) [place] # (Auto) Eos # (Auto) Baso # (Auto) PT 10.9 INR 0.95 APTT 28.1 D-Dimer, Quantitative 671 H Sodium Potassium Chloride Carbon Dioxide Anion Gap BUN Creatinine Est GFR ( Amer) Est GFR (Non-Af Amer) Random Glucose Hemoglobin A1c Calcium Total Bilirubin AST ALT Alkaline Phosphatase Troponin I < 0.01 Total Protein Albumin Globulin Albumin/Globulin Ratio Triglycerides Cholesterol LDL Cholesterol Direct HDL Cholesterol Urine RBC 2 - 5 Urine WBC 15 - 20 Ur Epithelial Cells 4 - 5 Urine Bacteria Many 07/29/18 07/29/18 07/29/18 07:50 07:50 08:00 WBC 7.3 RBC 4.34 Hgb 12.2 Hct 38.6 MCV 88.9 MCH 28.1 MCHC 31.6 RDW 13.8 Plt Count 266 MPV 8.8 Gran % 63.2 Lymph % (Auto) 18.7 L [place] % (Auto) 9.9 H Eos % (Auto) 8.1 H Baso % (Auto) 0.1 Gran # 4.58 Lymph # (Auto) 1.4 [place] # (Auto) 0.7 H Eos # (Auto) 0.6 Baso # (Auto) 0.01 PT INR APTT D-Dimer, Quantitative Sodium Potassium Chloride Carbon Dioxide Anion Gap BUN Creatinine Est GFR ( Amer) Est GFR (Non-Af Amer) Random Glucose Hemoglobin A1c 5.8 Calcium Total Bilirubin AST ALT Alkaline Phosphatase Troponin I Total Protein Albumin Globulin Albumin/Globulin Ratio Triglycerides 143 Cholesterol 140 LDL Cholesterol Direct 87 HDL Cholesterol 33 Urine RBC Urine WBC Ur Epithelial Cells Urine Bacteria 07/29/18 08:00 WBC RBC Hgb Hct MCV MCH MCHC RDW Plt Count MPV Gran % Lymph % (Auto) [place] % (Auto) Eos % (Auto) Baso % (Auto) Gran # Lymph # (Auto) [place] # (Auto) Eos # (Auto) Baso # (Auto) PT INR APTT D-Dimer, Quantitative Sodium 140 Potassium 3.6 Chloride 100 Carbon Dioxide 31 Anion Gap 13 BUN 8 Creatinine 1.1 Est GFR ( Amer) > 60 Est GFR (Non-Af Amer) 51 Random Glucose 123 H Hemoglobin A1c Calcium 8.9 Total Bilirubin 0.6 AST 32 ALT 20 Alkaline Phosphatase 204 H Troponin I Total Protein 7.6 Albumin 3.7 Globulin 4.0 Albumin/Globulin Ratio 0.9 L Triglycerides Cholesterol LDL Cholesterol Direct HDL Cholesterol Urine RBC Urine WBC Ur Epithelial Cells Urine Bacteria Assessment & Plan - Assessment and Plan (Free Text) Assessment: 58F non smoker with a hx of SLE, RA, CREST syndrome, gastritis, breast cancer s/p R lumpectomy admitted for generalized right sided pain, abdominal pain, pleuritic chest pain, and right sided weakness/numbness found to have an eleva rodolfo D-Dimer with concern for PE. She has a contrast allergy (anaphylaxis) which has prevented her from getting a CTA Chest to r/o PE. Suspicion for PE is overall low. Doppler of LE ruled out DVTs. TNI are neg. She is not hypoxic and not tachycardic. Well's Score is 1 at best which put her in low prob. D-Dimer is elevated which may be from her autoimmune disease or malignancy history. CXR does show some right basilar atelecatasis. She does not have a few or leukocytosis, no cough no sputum - doubt she has a PNA. To confirm she does not have a PE, she would need a V/Q scan however I spoke with nuclear rad and they confirmed there is a national shortage of Tc99 which is required for the ventilation portion. Shortage expected to last another 1-2 weeks. Given her low risk, I think it is acceptable for her to have a V/Q done as an outpatient. I do not feel strongly to empirically anticoagulate her either. Other causes of her right sided pain should be worked up. Multiple Myeloma comes to mind however I did not see any lytic lesions on her scan, blood work appears normal including a normal calcium. Dedicated XR of ribs may leaf size picker more focal lesions or fractures if present. She also has an elevated ALP which should be followed by a GGT to evaluate if this is bone vs hepatobiliary. Thank you for the consultation Please re-call if needed Adriana Mcfadden MD Pulmonary Critical Care and Sleep Medicine
--- NOTE | 2018-07-29 17:18 | CP.PCM.PN ---
<Tre Watkins - Last Filed: 07/29/18 17:13> Subjective - Date & Time of Evaluation Date of Evaluation: 07/29/18 Time of Evaluation: 17:13 - Subjective Subjective: Resident Tre Watkins DO PGY1 Hospitalist Progress Note for: Dr. Nir Skinner: Pt was seen and examined this morning at bedside. She continues to complain of R sided headache, R arm and leg pain with leg weakness. She state that she recently sustained a fall and broke a rib on her L side, but had no contusion or fracture on the R. She states that she is also having some numbness in the R leg. She denies a hx of complex migraines. She denies having any SOB, cough, fevers, chills, dysuria, hematuria. She admits to RUQ abd pain worse with palpation, pleuritic chest pain and chest tightness. Objective - Vital Signs/Intake and Output Vital Signs (last 24 hours): Temp Pulse Resp BP Pulse Ox 97.9 F 97 H 20 151/84 H 94 L 07/29/18 14:00 07/29/18 14:00 07/29/18 14:00 07/29/18 14:00 07/29/18 14:00 Intake and Output: 07/29/18 07/29/18 06:59 18:59 Intake Total 250 Balance 250 - Medications Medications: Current Medications Acetaminophen (Tylenol 325mg Tab) 650 mg PO Q6H PRN PRN Reason: Headache Last Admin: 07/29/18 14:17 Dose: 650 mg Albuterol/Ipratropium (Duoneb 3 Mg/0.5 Mg (3 Ml) Ud) 3 ml IH Q2H PRN PRN Reason: Shortness of Breath Alprazolam (Xanax) 1 mg PO TID PRN; Protocol PRN Reason: Anxiety Last Admin: 07/29/18 14:48 Dose: 1 mg Aspirin (Ecotrin) 81 mg PO DAILY [place] Last Admin: 07/29/18 13:35 Dose: 81 mg Dicyclomine HCl (Bentyl) 10 mg PO BID PRN PRN Reason: Irritable bowel symptoms Diphenhydramine HCl (Benadryl) 25 mg PO HS PRN PRN Reason: Insomnia Last Admin: 07/29/18 02:51 Dose: 25 mg Enoxaparin Sodium (Lovenox) 40 mg SC DAILY [facility]; Protocol Last Admin: 07/29/18 10:34 Dose: 40 mg Levofloxacin/Dextrose (Levaquin 500mg) 500 mg in 100 mls @ 100 mls/hr IVPB DAILY [facility]; Protocol Last Admin: 07/29/18 10:35 Dose: 100 mls/hr Morphine Sulfate (Morphine) 2 mg IVP Q4 PRN PRN Reason: Pain, severe (8-10) Last Admin: 07/29/18 13:37 Dose: 2 mg Pantoprazole Sodium (Protonix Inj) 40 mg IVP DAILY [facility] Last Admin: 07/29/18 10:34 Dose: 40 mg Sucralfate (Carafate Oral Susp) 1 gm PO BID [facility] Last Admin: 07/29/18 10:34 Dose: 1 gm - Labs Labs: 07/29/18 08:00 07/29/18 08:00 PT 10.9 SECONDS (9.4-12.5) 07/28/18 11:30 INR 0.95 07/28/18 11:30 APTT 28.1 Seconds (25.1-36.5) 07/28/18 11:30 - Constitutional Appears: Well, Non-toxic, No Acute Distress, Other (uncomfortable and in mild pain) - Head Exam Head Exam: ATRAUMATIC, NORMAL INSPECTION, NORMOCEPHALIC - Eye Exam Eye Exam: EOMI, Normal appearance, PERRL - Respiratory Exam Respiratory Exam: Clear to Ausculation Bilateral, NORMAL BREATHING PATTERN. absent: Accessory Muscle Use, Decreased Breath Sounds, Rales, Rhonchi, Wheezes, Respiratory Distress, Stridor - Cardiovascular Exam Cardiovascular Exam: RRR, +S1, +S2. absent: Gallop, Rubs - GI/Abdominal Exam GI & Abdominal Exam: Soft, Tenderness (RUQ upon palpation pt is s/p ang.), Normal Bowel Sounds. absent: Guarding, Rigid - Extremities Exam Extremities Exam: Full ROM, Normal Capillary Refill, Normal Inspection. absent: Calf Tenderness, Pedal Edema, Tenderness - Back Exam Back Exam: NORMAL INSPECTION. absent: CVA tenderness (L), CVA tenderness (R) - Neurological Exam Neurological Exam: Alert, Awake, CN II-XII Intact, Oriented x3 Neuro motor strength exam: Left Upper Extremity: 5, Right Upper Extremity: 4, Left Lower Extremity: 5, Right Lower Extremity: 0 (difficult to assess 2/2 pt reporting pain) Additional comments: Pt also admitted to numbness on R leg - Psychiatric Exam Psychiatric exam: Normal Affect, Normal Mood - Skin Skin Exam: Dry, Intact, Normal Color, Warm Assessment and Plan - Assessment and Plan (Free Text) Assessment: Pt is a 58 yo female with extensive past medical history that includes SLE, hyperthyroidism, RA, CREST syndrome, gastritis, breast cancer s/p R lumpectomy presenting to the ED with worsening generalized R sided pain x 1-[address] head is negative for acute hemorrhage, CXR showed an opacity in the RL base, atelectasis vs PNA. Plan: 1. Pleuritic chest pain, Decreased breath sounds--r/o PE vs PNA vs Atelectasis: - D dimer: 671 - CXR: opacity R lung base, subsegmental atelectasis vs PNA; Possible small R pleural effusion, mildly elevated R hemidiaphragm - EKG: NSR @ 89 bpm, somatic tremors - Duonebs prn - Pulmonology recs appreciated : Wells score is 1 at best = low probability of PE, f/u V/Q scan outpt - Blood culture - no growth - F/u b/l rib series - Cont levofloxin 500 mg IV QD 2. R sided numbness/weakness--r/o CVA - Neurochecks qshift - PT on board : PRINCESS upon d/c - Duplex b/l LE - No evidence of DVT - Head CT w/o contrast: No acute intracranial hemorrhage - Neurology consulted: MRI of brain w/o contrast, CT of Lumbosacral region, Cont ASA 3. RUQ abd pain s/p ang - Abd u/s complex fluid accumulation noted around the spleen, hematoma vs other path. Multiple b/l renal cysts. Fatty infiltration of liver. - f/u lipase - f/u CT chest, abd/pelvis 4. Dysphagia, hx hiatal hernia, gastritis and hx of CREST - Aspiration precautions - Puree, thin liquid diet - Speech and swallow eval - Thin liquids and dysphagia level 2 diet. - Continue home dicyclomine, carofate - Protonix 5. UTI - UA: +Bacteria, LE, small blood - Levofloxacin 750 mg x1 in ED - Levofloxacin 250 mg IV [place] - Urine culture pending 6. Hx anxiety -continue home alprazolam 7. PPx, Diet, Disposition -DVT: lovenox -GI: protonix -Diet: puree, thin liquid Case discussed with Dr. Nir Watkins DO, PGY-1 <Valerie Skinner R - Last Filed: 07/31/18 17:55> Objective - Vital Signs/Intake and Output Vital Signs (last 24 hours): Temp Pulse Resp BP Pulse Ox 98.4 F 88 20 125/77 96 07/31/18 14:00 07/31/18 14:00 07/31/18 14:00 07/31/18 14:00 07/31/18 14:00 - Medications Medications: Current Medications Acetaminophen (Tylenol 325mg Tab) 650 mg PO Q6H PRN PRN Reason: Headache Last Admin: 07/29/18 23:04 Dose: 650 mg Albuterol/Ipratropium (Duoneb 3 Mg/0.5 Mg (3 Ml) Ud) 3 ml IH Q2H PRN PRN Reason: Shortness of Breath Alprazolam (Xanax) 1 mg PO TID PRN; Protocol PRN Reason: Anxiety Last Admin: 07/31/18 17:13 Dose: 1 mg Aspirin (Ecotrin) 81 mg PO DAILY [place] Last Admin: 07/31/18 09:42 Dose: 81 mg Cyclobenzaprine HCl (Flexeril) 5 mg PO TID PRN PRN Reason: Muscle spasm Last Admin: 07/31/18 13:50 Dose: 5 mg Dicyclomine HCl (Bentyl) 10 mg PO BID PRN PRN Reason: Irritable bowel symptoms Diphenhydramine HCl (Benadryl) 25 mg PO HS PRN PRN Reason: Insomnia Last Admin: 07/30/18 20:42 Dose: 25 mg Enoxaparin Sodium (Lovenox) 40 mg SC DAILY [facility]; Protocol Last Admin: 07/31/18 09:41 Dose: 40 mg Ibuprofen (Motrin Tab) 400 mg PO Q6H PRN PRN Reason: Pain, Mild (1-3) Last Admin: 07/30/18 20:42 Dose: 400 mg Levofloxacin (Levaquin) 500 mg PO DAILY [facility] Oxycodone/Acetaminophen (Percocet 5/325 Mg Tab) 1 tab PO Q6H PRN PRN Reason: Pain, moderate (4-7) Stop: 08/02/18 13:28 Pantoprazole Sodium (Protonix Ec Tab) 40 mg PO 0600 [facility] Last Admin: 07/31/18 06:02 Dose: 40 mg Polyethylene Glycol (Miralax) 17 gm PO DAILY PRN PRN Reason: Constipation Pregabalin (Lyrica) 50 mg PO BID [facility] Last Admin: 07/31/18 17:13 Dose: 50 mg Sucralfate (Carafate Oral Susp) 1 gm PO BID [facility] Last Admin: 07/31/18 17:12 Dose: 1 gm - Labs Labs: 07/31/18 07:00 07/31/18 07:00 PT 10.9 SECONDS (9.4-12.5) 07/28/18 11:30 INR 0.95 07/28/18 11:30 APTT 28.1 Seconds (25.1-36.5) 07/28/18 11:30 Attending/Attestation - Attestation I have personally seen and examined this patient.: Yes I have fully participated in the care of the patient.: Yes I have reviewed all pertinent clinical information, including history, physical exam and plan: Yes Notes (Text): Patient seen and examined by me with resident at 11:10AM with resident 07/29/18. Case including HPI, physical exam, and assessment and plan discussed with resident. Agree with above with following additions/corrections. Patient is a 58-year-old female past medical history significant for SLE, thyroid nodules, rheumatoid arthritis, Crestor syndrome, gastritis, anxiety, and breast cancer status post right lumpectomy that presented to the emergency room with right sided pain and weakness. Patient states she is feeling ok. Still complains of pain under her right breast and pain going from her head to her right foot on the right side. Patient states she is also having a headache. Patient also complains of burning with urination but states this has been going on for about a year. Patient continues to complain of chest tightness. No nausea or vomiting. No dizziness. No bowel movement today. No fevers or chills. Physical exam: General: Awake and lying in bed in no acute distress HEENT: Normocephalic, atraumatic. Extraocular muscles intact, pupils equal and reactive, no scleral icterus. Oropharynx is pink. Positive dry mucous membranes. Neck is supple. Hearing grossly intact. Ears and nose externally unremarkable. Cardiovascular: Regular rhythm. Normal S1 and S2. No rubs or gallops appreciated Pulmonary: Normal respiratory effort. No rhonchi, rales, or wheezing appreciated. Gastrointestinal: Soft, nondistended. Positive generalized tenderness more prominent right upper quadrant. Positive bowel sounds all 4 quadrants. Positive voluntary guarding. Musculoskeletal: Moves all extremities. No calf tenderness. No CVA tenderness. No edema appreciated Central nervous system: AAO x3, CN 2-12 grossly intact. Right side upper and lower extremity weakness when compared to the left, however, this may be secondary to patient's effort secondary to pain. Dermatologic: Skin warm and dry. Assessment and plan: Patient is a 58-year-old female past medical history significant for SLE, thyroid nodules, rheumatoid arthritis, Crest syndrome, gastritis, anxiety, and breast cancer status post right lumpectomy that presente d to the emergency room with right sided pain and weakness. 1. Chest pain. Pleuritic. Pain reproducible. D-dimer is elevated. Patient unable to get CTA secondary to dye allergy. Unable to get VQ scan secondary to national isotope shortage. Patient is likely low risk for PE. Seen by painter. Abdullahi yi to get V/Q scan as outpatient. Venous dopplers negative for DVT. Patient not tachycardic or hypoxic. Chest x-ray per radiologist shows opacity at right base, possibly some segmental atelectasis versus pneumonia, possible small right pleural effusion, mildly elevated right hemidiaphragm. Continue levaquin. Troponin within normal limits. Follow-up chest CT. 2. Right sided weakness and pain. Also with right foot numbness. Rule out CVA. Continue aspirin. Neurology following, recommendations appreciated. Head CT per radiology shows no acute intracranial abnormality. Continue neurochecks. Con tinue physical therapy. Follow up MRI brain and CT of lumbosacral spine. 3. Dysphagia. Patient seen by speech and swallow. Continue with dysphagia diet. Continue with aspiration precautions. 4. Abdominal pain. Status post cholecystectomy and appendectomy. History of gastritis. Continue home Carafate and dicyclomine. Continue Protonix. Abdominal ultrasound per radiologist showed complex appearing fluid collection adjacent to the spleen, rule out hematoma versus other pathology; multiple bilateral renal cysts; small nonobstructing calculus that was seen lower pole collecting system left kidney on prior CT scan not appreciated on this study; suspect fatty hepatic infiltration. Follow-up CT abdomen without contrast as patient cannot tolerate contrast 5. UTI. Patient symptomatic. Urine culture pending. Continue Levaquin. 6. History of breast cancer. Patient states that she was recently diagnosed with a new lump on her left breast. Patient is following up outpatient for this. 7. SLE. Crest syndrome. Rheumatoid arthritis. Patient is on methotrexate at home. Pain may be secondary to lupus. Continue to monitor for now. 8. Hypokalemia. Resolved. Continue to monitor. 9. Anxiety. Continue alprazolam 1 mg TID as needed. 10. GI/DVT prophylaxis. Protonix/Lovenox 11. Patient is a full code Case was discussed in detail with the patient regarding current diagnosis and treatment plan. All questions answered.
[2018-07-30] MEDS: Morphine 2 mg/ml ISec IVP PRN ×4 (04:43→22:27)
[2018-07-30 06:34] LABS: ALB/GLOB RATIO 0.9 (1.1-1.8); ALBUMIN 3.7 g/dL (3.0-4.8); ALT/SGPT 23 U/L (7-56); AST/SGOT 36 U/L (14-36); BLOOD UREA NITROGEN 9 mg/dL (7-21); CALCIUM 9.2 mg/dL (8.4-10.5); GAMMA GLUTAMYL TRANSPEPTIDASE 156 U/L (8-78); GFR NON-AFRICAN AMERICAN 51
[2018-07-30 07:08] LABS: BASO # 0.01 K/mm3 (0.0-2.0); BASO % 0.2 % (0.0-3.0); EOS # 0.8 (0.0-0.7); EOS % 11.6 % (1.5-5.0); GRAN # 3.34 (1.4-6.5); GRAN % 50.8 % (50.0-68.0); HEMOGLOBIN 12.6 g/dL (12.0-16.0); LYMPH # 1.8 (1.2-3.4); LYMPH % 26.6 % (22.0-35.0); MEAN CELL VOLUME 87.8 fl (80.0-105.0); MEAN CORPUSCULAR HEMOGLOBIN 27.5 pg (25.0-35.0); MEAN CORPUSCULAR HGB CONC 31.3 g/dl (31.0-37.0); MONO # 0.7 (0.1-0.6); MONO % 10.8 % (1.0-6.0); RBC 4.59 10^6/uL (3.5-6.1); RED CELL DISTRIBUTION WIDTH 13.9 % (11.5-14.5); WHITE BLOOD COUNT 6.6 10^3/uL (4.5-11.0)
--- NOTE | 2018-07-30 10:01 | CT ---
Date of service: 07/30/2018 PROCEDURE: CT Lumbar Spine without contrast HISTORY: pain, please include sacral spine COMPARISON: None available. TECHNIQUE: Axial computed tomography images were obtained of the lumbar spine without the use of intravenous contrast. Coronal and sagittal reformatted images were created and reviewed. Radiation dose: Total exam DLP = 665.11 mGy-cm. This CT exam was performed using one or more of the following dose reduction techniques: Automated exposure control, adjustment of the mA and/or kV according to patient size, and/or use of iterative reconstruction technique. FINDINGS: VERTEBRAE: Unremarkable. No fracture. Normal alignment. DISCS/SPINAL CANAL/NEURAL FORAMINA: L1-2: Unremarkable. L2-3: Unremarkable. L3-4: Moderate facet arthropathy L4-5: Moderate facet arthropathy L5-S1: Unremarkable. PARASPINAL SOFT TISSUES: Unremarkable. OTHER FINDINGS: None. IMPRESSION: Moderate facet arthropathy at L3-4 and L4-5. No acute findings
--- NOTE | 2018-07-30 10:12 | CT ---
Date of service: 07/30/2018 PROCEDURE: CT Chest and abdomen without contrast HISTORY: post splenic hematoma COMPARISON: None available. TECHNIQUE: IV dose administered: None Radiation dose: Total exam DLP = 585.02 mGy-cm. This CT exam was performed using one or more of the following dose reduction techniques: Automated exposure control, adjustment of the mA and/or kV according to patient size, and/or use of iterative reconstruction technique. FINDINGS: CT CHEST: LUNGS: Bibasilar infiltrates are seen with air bronchograms right greater than left. Findings are suspicious for pneumonia versus atelectasis MEDIASTINUM: Unremarkable. Normal caliber aorta and pulmonary arterial trunk. No aortic dissection. Normal size heart. Mild aortic calcification LYMPH NODES: Unremarkable. PLEURA: Unremarkable. No pneumothorax. No pleural fluid. BONES: Unremarkable. OTHER FINDINGS:: None. CT ABDOMEN: LIVER: Unremarkable. No gross lesion or ductal dilatation. GALLBLADDER AND BILE DUCTS: Gallbladder removed PANCREAS: Unremarkable. No gross lesion or ductal dilatation. SPLEEN: Unremarkable. ADRENALS: Unremarkable. No mass. KIDNEYS AND URETERS: Unremarkable. No hydronephrosis. No solid mass. 5 mm stone in the lower pole VASCULATURE: Unremarkable. No aortic aneurysm. No aortic atherosclerotic calcification or mural plaque present. STOMACH AND BOWEL: Unremarkable, as visualized. The entire bowel was not visualized, as the pelvis was not included in this study. PERITONEUM: Unremarkable. No free fluid. No free air. LYMPH NODES: Unremarkable. No enlarged lymph nodes. BONES: No acute fracture. OTHER FINDINGS: None. IMPRESSION: No evidence of splenic hematoma. Bibasilar subsegmental infiltrates with air bronchograms right greater than left. Atelectasis versus developing pneumonia
--- NOTE | 2018-07-30 10:17 | MRI ---
Date of service: 07/30/2018 PROCEDURE: MRI BRAIN WITHOUT CONTRAST HISTORY: weakness/numbness COMPARISON: None available. TECHNIQUE: Multiplanar, multisequence MR images of the brain were obtained without intravenous contrast enhancement. FINDINGS: HEMORRHAGE: None DWI: No evidence of an acute or early subacute infarction. BRAIN PARENCHYMA: No mass effect or edema. Minimal microvascular changes. No significant atrophy VENTRICLES: Unremarkable. No hydrocephalus. CRANIUM: Unremarkable. ORBITS: Grossly unremarkable. PARANASAL SINUSES/MASTOIDS: Clear VASCULAR SYSTEM: Skull base flow voids intact. OTHER FINDINGS: None. IMPRESSION: Unremarkable non contrast enhanced MRI of the brain.
[2018-07-30] MEDS: Enoxaparin 40 mg Syringe SC SCH (10:35)
[2018-07-30] MEDS: levoFLOXacin 500 mg in D5W 500 MG/100 ML BAG IVPB SCH (10:35)
[2018-07-30] MEDS: Sucralfate 1 gm/10 ml Oral Susp UD PO SCH ×2 (10:35→18:03)
--- NOTE | 2018-07-30 11:10 | RAD ---
Date of service: 07/30/2018 PROCEDURE: Bilateral ribs HISTORY: right sided pain, r/o fracture COMPARISON: TECHNIQUE: Five views of the ribs were obtained bilaterally FINDINGS: Displaced fractures are seen of the left 5th 6th and 7th ribs. There is some callus formation around the fractures indicating the fractures are subacute or chronic IMPRESSION: As above
[2018-07-30] MEDS ORDERED: Oxycodone/Acetaminophen 5/325 mg Tab PO PRN (13:27)
--- NOTE | 2018-07-30 17:36 | CP.PCM.PN ---
<Tre Watkins - Last Filed: 07/30/18 17:27> Subjective - Date & Time of Evaluation Date of Evaluation: 07/30/18 Time of Evaluation: 17:27 - Subjective Subjective: Resident Tre Watkins DO PGY1 Hospitalist Progress Note for: Dr. Nir Skinner: Pt was seen and examined this morning at bedside. She continues to complain of R sided headache, R arm and leg pain with leg weakness. She state that she recently sustained a fall and broke a rib on her L side, but had no contusion or fracture on the R. She states that she is also having some numbness in the R leg. She denies a hx of complex migraines. She denies having any SOB, cough, fevers, chills, dysuria, hematuria. She admits to RUQ abd pain worse with palpation, pleuritic chest pain and chest tightness. Objective - Vital Signs/Intake and Output Vital Signs (last 24 hours): Temp Pulse Resp BP Pulse Ox 97.9 F 91 H 20 112/79 94 L 07/30/18 14:00 07/30/18 14:00 07/30/18 14:00 07/30/18 14:00 07/30/18 14:00 Intake and Output: 07/30/18 07/30/18 06:59 18:59 Intake Total 180 Balance 180 - Medications Medications: Current Medications Acetaminophen (Tylenol 325mg Tab) 650 mg PO Q6H PRN PRN Reason: Headache Last Admin: 07/29/18 23:04 Dose: 650 mg Albuterol/Ipratropium (Duoneb 3 Mg/0.5 Mg (3 Ml) Ud) 3 ml IH Q2H PRN PRN Reason: Shortness of Breath Alprazolam (Xanax) 1 mg PO TID PRN; Protocol PRN Reason: Anxiety Last Admin: 07/30/18 14:30 Dose: 1 mg Aspirin (Ecotrin) 81 mg PO DAILY [place] Last Admin: 07/30/18 10:35 Dose: 81 mg Cyclobenzaprine HCl (Flexeril) 5 mg PO TID PRN PRN Reason: Muscle spasm Last Admin: 07/30/18 14:32 Dose: 5 mg Dicyclomine HCl (Bentyl) 10 mg PO BID PRN PRN Reason: Irritable bowel symptoms Diphenhydramine HCl (Benadryl) 25 mg PO HS PRN PRN Reason: Insomnia Last Admin: 07/29/18 21:33 Dose: 25 mg Enoxaparin Sodium (Lovenox) 40 mg SC DAILY [facility]; Protocol Last Admin: 07/30/18 10:35 Dose: 40 mg Levofloxacin/Dextrose (Levaquin 500mg) 500 mg in 100 mls @ 100 mls/hr IVPB DAILY [facility]; Protocol Last Admin: 07/30/18 10:35 Dose: 100 mls/hr Ibuprofen (Motrin Tab) 400 mg PO Q6H PRN PRN Reason: Pain, Mild (1-3) Last Admin: 07/30/18 14:31 Dose: 400 mg Morphine Sulfate (Morphine) 1 mg IVP Q6 PRN PRN Reason: Pain, severe (8-10) Last Admin: 07/30/18 16:41 Dose: 1 mg Oxycodone/Acetaminophen (Percocet 5/325 Mg Tab) 1 tab PO Q6H PRN PRN Reason: Pain, moderate (4-7) Stop: 08/02/18 13:28 Pantoprazole Sodium (Protonix Inj) 40 mg IVP DAILY [facility] Last Admin: 07/29/18 10:34 Dose: 40 mg Sucralfate (Carafate Oral Susp) 1 gm PO BID [facility] Last Admin: 07/30/18 10:35 Dose: 1 gm - Labs Labs: 07/30/18 05:30 07/30/18 05:30 PT 10.9 SECONDS (9.4-12.5) 07/28/18 11:30 INR 0.95 07/28/18 11:30 APTT 28.1 Seconds (25.1-36.5) 07/28/18 11:30 - Constitutional Appears: Well, Non-toxic, No Acute Distress, Other (uncomfortable) - Head Exam Head Exam: ATRAUMATIC, NORMAL INSPECTION, NORMOCEPHALIC - Eye Exam Eye Exam: EOMI, Normal appearance, PERRL - Respiratory Exam Respiratory Exam: Clear to Ausculation Bilateral, NORMAL BREATHING PATTERN. absent: Accessory Muscle Use, Decreased Breath Sounds, Rales, Rhonchi, Wheezes, Respiratory Distress - Cardiovascular Exam Cardiovascular Exam: RRR, +S1, +S2. absent: Gallop, Rubs - GI/Abdominal Exam GI & Abdominal Exam: Soft, Tenderness (RUQ tenderness upon palpation, pt is s/p ang), Normal Bowel Sounds. absent: Guarding, Rigid - Extremities Exam Extremities Exam: absent: Calf Tenderness - Back Exam Back Exam: NORMAL INSPECTION. absent: CVA tenderness (L), CVA tenderness (R) - Neurological Exam Neuro motor strength exam: Left Upper Extremity: 5, Right Upper Extremity: 5, Left Lower Extremity: 5, Right Lower Extremity: 2/1 (limited exam 2/2 pts complaints of pain) - Psychiatric Exam Psychiatric exam: Agitated - Skin Skin Exam: Dry, Intact, Normal Color, Warm Assessment and Plan - Assessment and Plan (Free Text) Assessment: Pt is a 58 yo female with extensive past medical history that includes SLE, hyperthyroidism, RA, CREST syndrome, gastritis, breast cancer s/p R lumpectomy presenting to the ED with worsening generalized R sided pain x 1-[address] head is negative for acute hemorrhage, CXR showed an opacity in the RL base, atelectasis vs PNA. Brain MRI and Lumbosacral CT show no gross abnormality to explain pts symptoms, detailed below. Plan: 1. Pleuritic chest pain, Decreased breath sounds--r/o PE vs PNA vs Atelectasis: - D dimer: 671 - CXR: opacity R lung base, subsegmental atelectasis vs PNA; Possible small R pleural effusion, mildly elevated R hemidiaphragm - EKG: NSR @ 89 bpm, somatic tremors - Rib series XR: Rib fractures at L ribs 5,6, 7 - Duonebs prn - Pulmonology recs appreciated : Wells score is 1 at best = low probability of PE, f/u V/Q scan outpt - Blood culture - no growth - Cont levofloxin 500 mg IV QD 2. R sided numbness/weakness--r/o CVA - Neurochecks qshift - PT on board : PRINCESS upon d/c - Duplex b/l LE - No evidence of DVT - Head CT w/o contrast: No acute intracranial hemorrhage - Brain MRI: No mass effect or edema, no significant atrophy - LS CT = L3-4 and L4-5 facet arthropathy - Neurology consulted: MRI of brain w/o contrast, CT of Lumbosacral region, Cont ASA 3. RUQ abd pain s/p ang - Abd u/s complex fluid accumulation noted around the spleen, hematoma vs other path. Multiple b/l renal cysts. Fatty infiltration of liver. - Lipase wnl - No evidence of splenic hematoma, atelectasis vs PNA 4. Dysphagia, hx hiatal hernia, gastritis and hx of CREST - Aspiration precautions - Puree, thin liquid diet - Speech and swallow eval - Thin liquids and dysphagia level 2 diet. - Continue home dicyclomine, carofate - Protonix 5. UTI - UA: +Bacteria, LE, small blood - Levofloxacin 750 mg x1 in ED - Levofloxacin 250 mg IV [place] - Urine culture pending 6. Hx anxiety -continue home alprazolam 7. PPx, Diet, Disposition -DVT: lovenox -GI: protonix -Diet: puree, thin liquid Dispo: [facility]ESS per PT Case discussed with Dr. Nir Watkins DO, PGY-1 <Valerie Skinner R - Last Filed: 07/31/18 18:12> Objective - Vital Signs/Intake and Output Vital Signs (last 24 hours): Temp Pulse Resp BP Pulse Ox 98.4 F 88 20 125/77 96 07/31/18 14:00 07/31/18 14:00 07/31/18 14:00 07/31/18 14:00 07/31/18 14:00 - Medications Medications: Current Medications Acetaminophen (Tylenol 325mg Tab) 650 mg PO Q6H PRN PRN Reason: Headache Last Admin: 07/29/18 23:04 Dose: 650 mg Albuterol/Ipratropium (Duoneb 3 Mg/0.5 Mg (3 Ml) Ud) 3 ml IH Q2H PRN PRN Reason: Shortness of Breath Alprazolam (Xanax) 1 mg PO TID PRN; Protocol PRN Reason: Anxiety Last Admin: 07/31/18 17:13 Dose: 1 mg Aspirin (Ecotrin) 81 mg PO DAILY [place] Last Admin: 07/31/18 09:42 Dose: 81 mg Cyclobenzaprine HCl (Flexeril) 5 mg PO TID PRN PRN Reason: Muscle spasm Last Admin: 07/31/18 13:50 Dose: 5 mg Dicyclomine HCl (Bentyl) 10 mg PO BID PRN PRN Reason: Irritable bowel symptoms Diphenhydramine HCl (Benadryl) 25 mg PO HS PRN PRN Reason: Insomnia Last Admin: 07/30/18 20:42 Dose: 25 mg Enoxaparin Sodium (Lovenox) 40 mg SC DAILY [facility]; Protocol Last Admin: 07/31/18 09:41 Dose: 40 mg Ibuprofen (Motrin Tab) 400 mg PO Q6H PRN PRN Reason: Pain, Mild (1-3) Last Admin: 07/30/18 20:42 Dose: 400 mg Levofloxacin (Levaquin) 500 mg PO DAILY [facility] Oxycodone/Acetaminophen (Percocet 5/325 Mg Tab) 1 tab PO Q6H PRN PRN Reason: Pain, moderate (4-7) Stop: 08/02/18 13:28 Pantoprazole Sodium (Protonix Ec Tab) 40 mg PO 0600 [place] Last Admin: 07/31/18 06:02 Dose: 40 mg Polyethylene Glycol (Miralax) 17 gm PO DAILY PRN PRN Reason: Constipation Pregabalin (Lyrica) 50 mg PO BID [facility] Last Admin: 07/31/18 17:13 Dose: 50 mg Sucralfate (Carafate Oral Susp) 1 gm PO BID [facility] Last Admin: 07/31/18 17:12 Dose: 1 gm - Labs Labs: 07/31/18 07:00 07/31/18 07:00 PT 10.9 SECONDS (9.4-12.5) 07/28/18 11:30 INR 0.95 07/28/18 11:30 APTT 28.1 Seconds (25.1-36.5) 07/28/18 11:30 Attending/Attestation - Attestation I have personally seen and examined this patient.: Yes I have fully participated in the care of the patient.: Yes I have reviewed all pertinent clinical information, including history, physical exam and plan: Yes Notes (Text): Patient seen and examined by me with resident at 12:35 PM with resident 07/30/18. Case including HPI, physical exam, and assessment and plan discussed with resident. Agree with above with following additions/corrections. Patient is a 58-year-old female past medical history significant for SLE, thyr oid nodules, rheumatoid arthritis, CREST syndrome, gastritis, anxiety, and breast cancer status post right lumpectomy that presented to the emergency room with right sided pain and weakness. Patient states she is feeling a "tiny bit better" today. Still having pain under her right breast and pain going from her head to her right foot on the right side. She states this has "slightly" improved. Headache has improved. Still with dysuria and increased urine frequency. States her chest hurts when she takes in a deep breath. But does not feel short of breath. No nausea or vomiting. No dizziness. No bowel movement. Patient states she has not been eating. No fevers or chills. Physical exam: General: Awake and lying in bed in no acute distress HEENT: Normocephalic, atraumatic. Extraocular muscles intact, pupils equal and reactive, no scleral icterus. Oropharynx is pink and moist. Neck is supple. Cardiovascular: Regular rhythm. Normal S1 and S2. No rubs or gallops appreciated Pulmonary: Normal respiratory effort. No rhonchi, rales, or wheezing appreciated. Gastrointestinal: Soft, nondistended. Positive generalized tenderness more prominent right upper quadrant. Positive bowel sounds all 4 quadrants. Positive voluntary guarding. Musculoskeletal: Moves all extremities. No calf tenderness. No CVA tenderness. No edema appreciated Central nervous system: AAO x3, CN 2-12 grossly intact. Right side upper and lower extremity weakness when compared to the left, however, this may be seco ndary to patient's effort secondary to pain. Dermatologic: Skin warm and dry. Assessment and plan: Patient is a 58-year-old female past medical history significant for SLE, thyroid nodules, rheumatoid arthritis, CREST syndrome, gastritis, anxiety, and breast cancer status post right lumpectomy that presented to the emergency room with right sided pain and weakness. 1. Chest pain. Pleuritic. Pain reproducible. D-dimer is elevated. Continue levaquin for possible developing pneumonia. Patient unable to get CTA secondary to dye allergy. Unable to get VQ scan secondary to national isotope shortage. Patient is likely low risk for PE. Seen by inventory accountant. Patient to get V/Q scan as outpatient. Venous dopplers negative for DVT. Patient not tachycardic or hypoxic. Chest x-ray per radiologist shows opacity at right base, possibly some segmental atelectasis versus pneumonia, possible small right pleural effusion, mildly elevated right hemidiaphragm. Troponin within normal limits. Chest CT per radiologist showed no evidence of splenic hematoma, bibasilar subsegmental infiltrates with an air bronchograms right greater than left, atelectasis versus developing pneumonia. Rib x-rays per radiologist showed displaced fractures are seen of the left fifth, sixth, and seventh ribs, there is some callus formation around the fractures in the [place] the fractures are subacute or chronic. 2. Right sided weakness and pain. Also with right foot numbness. CVA ruled out. Continue aspirin. Neurology following, recommendations appreciated. Head CT per radiologist showed no acute intracranial abnormality. MRI brain per radiologist showed unremarkable noncontrast enhanced MRI of the brain. Lumbar spine CT per radiologist showed moderate facet arthropathy at L3-L4 and L4-L5, no acute findings. Continue physical therapy. Physical therapy recommends subacute rehabilitation 3. Dysphagia. Patient seen by speech and swallow. Continue with dysphagia diet. Continue with aspiration precautions. 4. Abdominal pain. Status post cholecystectomy and appendectomy. History of gastritis. Continue home Carafate and dicyclomine. Continue Protonix. Abdominal ultrasound per radiologist showed complex appearing fluid collection adjacent to the spleen, rule out hematoma versus other pathology; multiple bilateral renal cysts; small nonobstructing calculus that was seen lower pole collecting system left kidney on prior CT scan not appreciated on this study; suspect fatty hepatic infiltration. CT abdomen and pelvis shows no splenic hematoma, no acute findings. 5. UTI. Patient symptomatic. Urine culture positive for Escherichia coli and staph epidermidis. Continue Levaquin. 6. History of breast cancer. Patient states that she was recently diagnosed with a new lump on her left breast. Patient is following up outpatient for this. 7. SLE. Crest syndrome. Rheumatoid arthritis. Patient is on methotrexate at [facility]. Pain may be secondary to lupus. Continue to monitor for now. 8. Hypokalemia. Resolved. Continue to monitor. 9. Anxiety. Continue alprazolam 1 mg TID as needed. 10. GI/DVT prophylaxis. Protonix/Lovenox 11. Patient is a full code Case was discussed in detail with the patient regarding current diagnosis and treatment plan. All questions answered.
[2018-07-30] MEDS: DiphenhydrAMINE 12.5 mg/5 ml LIQ UD (5 ml) PO PRN (20:42)
[2018-07-31] MEDS: Morphine 2 mg/ml ISec IVP PRN (04:44)
[2018-07-31] MEDS: Pantoprazole 40 mg EC Tab PO SCH (06:02)
[2018-07-31 07:41] LABS: BASO # 0.02 K/mm3 (0.0-2.0); BASO % 0.3 % (0.0-3.0); EOS # 0.6 (0.0-0.7); EOS % 10.2 % (1.5-5.0); GRAN # 3.08 (1.4-6.5); GRAN % 51.6 % (50.0-68.0); HEMOGLOBIN 12.7 g/dL (12.0-16.0); LYMPH # 1.6 (1.2-3.4); LYMPH % 26.3 % (22.0-35.0); MEAN CELL VOLUME 87.4 fl (80.0-105.0); MEAN PLATELET VOLUME 8.9 fl (7.0-11.0); MONO # 0.7 (0.1-0.6); MONO % 11.6 % (1.0-6.0); RBC 4.54 10^6/uL (3.5-6.1); RED CELL DISTRIBUTION WIDTH 13.8 % (11.5-14.5)
[2018-07-31 07:59] LABS: ALB/GLOB RATIO 0.9 (1.1-1.8); ALBUMIN 3.7 g/dL (3.0-4.8); ALT/SGPT 20 U/L (7-56); AST/SGOT 33 U/L (14-36); BLOOD UREA NITROGEN 11 mg/dL (7-21); CALCIUM 9.3 mg/dL (8.4-10.5); GFR NON-AFRICAN AMERICAN 51
[2018-07-31] MEDS: Enoxaparin 40 mg Syringe SC SCH (09:41)
[2018-07-31] MEDS: levoFLOXacin 500 mg in D5W 500 MG/100 ML BAG IVPB SCH (09:42)
[2018-07-31] MEDS: Sucralfate 1 gm/10 ml Oral Susp UD PO SCH ×2 (09:42→17:12)
[2018-07-31] MEDS ORDERED: POLYETHYLENE GLYCOL 3350 17 GM/Dose PACKET PO PRN (16:59)
--- NOTE | 2018-07-31 17:41 | CP.PCM.PN ---
<Apoorva Perez - Last Filed: 07/31/18 17:59> Subjective - Date & Time of Evaluation Date of Evaluation: 07/31/18 Time of Evaluation: 08:00 - Subjective Subjective: PGY-[address] Skinner Pt complain of R sided headache, R arm and leg pain with leg weakness. From R breast to R knee, 07/02. R shoulder up to head, 05/02. R knee down to foot, 05/02. Associated with numbness, mouth dryness, and difficulty articulation. denies having any SOB, cough, fevers, chills, dysuria, hematuria. Objective - Vital Signs/Intake and Output Vital Signs (last 24 hours): Temp Pulse Resp BP Pulse Ox 98.4 F 88 20 125/77 96 07/31/18 14:00 07/31/18 14:00 07/31/18 14:00 07/31/18 14:00 07/31/18 14:00 - Medications Medications: Current Medications Acetaminophen (Tylenol 325mg Tab) 650 mg PO Q6H PRN PRN Reason: Headache Last Admin: 07/29/18 23:04 Dose: 650 mg Albuterol/Ipratropium (Duoneb 3 Mg/0.5 Mg (3 Ml) Ud) 3 ml IH Q2H PRN PRN Reason: Shortness of Breath Alprazolam (Xanax) 1 mg PO TID PRN; Protocol PRN Reason: Anxiety Last Admin: 07/31/18 17:13 Dose: 1 mg Aspirin (Ecotrin) 81 mg PO DAILY CARLOS Last Admin: 07/31/18 09:42 Dose: 81 mg Cyclobenzaprine HCl (Flexeril) 5 mg PO TID PRN PRN Reason: Muscle spasm Last Admin: 07/31/18 13:50 Dose: 5 mg Dicyclomine HCl (Bentyl) 10 mg PO BID PRN PRN Reason: Irritable bowel symptoms Diphenhydramine HCl (Benadryl) 25 mg PO HS PRN PRN Reason: Insomnia Last Admin: 07/30/18 20:42 Dose: 25 mg Enoxaparin Sodium (Lovenox) 40 mg SC DAILY CARLOS; Protocol Last Admin: 07/31/18 09:41 Dose: 40 mg Ibuprofen (Motrin Tab) 400 mg PO Q6H PRN PRN Reason: Pain, Mild (1-3) Last Admin: 07/30/18 20:42 Dose: 400 mg Levofloxacin (Levaquin) 500 mg PO DAILY [facility] Oxycodone/Acetaminophen (Percocet 5/325 Mg Tab) 1 tab PO Q6H PRN PRN Reason: Pain, moderate (4-7) Stop: 08/02/18 13:28 Pantoprazole Sodium (Protonix Ec Tab) 40 mg PO 0600 [facility] Last Admin: 07/31/18 06:02 Dose: 40 mg Polyethylene Glycol (Miralax) 17 gm PO DAILY PRN PRN Reason: Constipation Pregabalin (Lyrica) 50 mg PO BID [facility] Last Admin: 07/31/18 17:13 Dose: 50 mg Sucralfate (Carafate Oral Susp) 1 gm PO BID [facility] Last Admin: 07/31/18 17:12 Dose: 1 gm - Labs Labs: 07/31/18 07:00 07/31/18 07:00 PT 10.9 SECONDS (9.4-12.5) 07/28/18 11:30 INR 0.95 07/28/18 11:30 APTT 28.1 Seconds (25.1-36.5) 07/28/18 11:30 - Constitutional Appears: No Acute Distress - Head Exam Head Exam: ATRAUMATIC, NORMAL INSPECTION, NORMOCEPHALIC Additional comments: uncomfortable - Eye Exam Eye Exam: EOMI, Normal appearance, PERRL. absent: Scleral icterus Pupil Exam: NORMAL ACCOMODATION - ENT Exam ENT Exam: Mucous Membranes Moist - Neck Exam Additional comments: supple - Respiratory Exam Respiratory Exam: Clear to Ausculation Bilateral, NORMAL BREATHING PATTERN. absent: Rales, Rhonchi, Wheezes - Cardiovascular Exam Cardiovascular Exam: REGULAR RHYTHM, +S1, +S2. absent: Murmur - GI/Abdominal Exam GI & Abdominal Exam: Soft, Tenderness (RUQ tenderness upon movement or palpation), Normal Bowel Sounds. absent: Guarding, Rigid, Rebound - Back Exam Back Exam: absent: CVA tenderness (L), CVA tenderness (R), paraspinal tenderness - Neurological Exam Neurological Exam: Alert, Awake, CN II-XII Intact, Oriented x3 Neuro motor strength exam: Left Upper Extremity: 5, Right Upper Extremity: 4, Left Lower Extremity: 5, Right Lower Extremity: 4 Additional comments: No slurr of speech R sided Motor strength limited by pain - Psychiatric Exam Psychiatric exam: Anxious, Normal Affect - Skin Skin Exam: Dry, Warm Assessment and Plan - Assessment and Plan (Free Text) Plan: Ms Feldman, 58 yo female with extensive past medical history that includes SLE, hyperthyroidism, RA, CREST syndrome, gastritis, breast cancer s/p R lumpectomy (20 years ago) presenting to the ED with sudden onset of severe R sided pain after 2 weeks of L sided pain sustained from fractured ribs [address] head is negative for acute hemorrhage, CXR showed an opacity in the RL base, atelectasis vs PNA. Brain MRI and Lumbosacral CT show no gross abnormality to explain pts symptoms, detailed below. 1. Pleuritic chest pain, Decreased breath sounds Likely due to subacute displaced fracture L 5-7th rib r/o PE vs PNA vs Atelectasis: - D dimer: 671 - CXR: opacity R lung base, subsegmental atelectasis vs PNA; Possible small R pleural effusion, mildly elevated R hemidiaphragm - EKG: NSR @ 89 bpm, somatic tremors - Rib series XR: Rib fractures at L ribs 5,6, 7 - Emir prn - Pulmonology recs appreciated : Wells score is 1 at best = low probability of PE, f/u V/Q scan outpt - Blood culture - no growth 2. UTI with e.coli and staph epidermidis - Cont levofloxin 500 mg IV QD 3. R sided numbness/weakness with dysarthia. Had ruled out CVA. likely due to complex regional pain syndrome due to rib fractures Dysarthia is likely emotional induced - Neurochecks qshift - PT on board : [facility] upon d/c - Duplex b/l LE - No evidence of DVT - Head CT w/o contrast: No acute intracranial hemorrhage - Brain MRI: No mass effect or edema, no significant atrophy - LS CT = L3-4 and L4-5 facet arthropathy - Neurology consulted: MRI of brain w/o contrast, CT of Lumbosacral region, Cont ASA - Requested 2nd opinion 4. RUQ abd pain s/p ang - Abd u/s complex fluid accumulation noted around the spleen, hematoma vs other path. Multiple b/l renal cysts. Fatty infiltration of liver. - Lipase wnl - No evidence of splenic hematoma, atelectasis vs PNA 5. Dysphagia, hx hiatal hernia, gastritis and hx of CREST - Aspiration precautions - Speech and swallow eval - Thin liquids and dysphagia level 2 diet. - Continue home dicyclomine, carofate - Protonix 6. Hx anxiety -continue home alprazolam 7. PPx, Diet, Disposition -DVT: lovenox -GI: protonix -Diet: displaced fracture L 5-7th rib, thin liquid Dispo: [facility] per PT, pending neuro clear s/r/d/w Dr Skinner <Valerie Skinner R - Last Filed: 08/01/18 17:15> Objective - Vital Signs/Intake and Output Vital Signs (last 24 hours): Temp Pulse Resp BP Pulse Ox 98.5 F 101 H 20 113/70 96 08/01/18 14:00 08/01/18 14:00 08/01/18 14:00 08/01/18 14:00 08/01/18 14:00 - Medications Medications: Current Medications Acetaminophen (Tylenol 325mg Tab) 650 mg PO Q6H PRN PRN Reason: Headache Last Admin: 07/31/18 20:15 Dose: 650 mg Albuterol/Ipratropium (Duoneb 3 Mg/0.5 Mg (3 Ml) Ud) 3 ml IH Q2H PRN PRN Reason: Shortness of Breath Alprazolam (Xanax) 1 mg PO TID PRN; Protocol PRN Reason: Anxiety Last Admin: 08/01/18 14:19 Dose: 1 mg Aspirin (Ecotrin) 81 mg PO DAILY CARLOS Last Admin: 08/01/18 09:22 Dose: 81 mg Cyclobenzaprine HCl (Flexeril) 5 mg PO TID PRN PRN Reason: Muscle spasm Last Admin: 07/31/18 22:56 Dose: 5 mg Dicyclomine HCl (Bentyl) 10 mg PO BID PRN PRN Reason: Irritable bowel symptoms Diphenhydramine HCl (Benadryl) 25 mg PO HS PRN PRN Reason: Insomnia Last Admin: 07/30/18 20:42 Dose: 25 mg Enoxaparin Sodium (Lovenox) 40 mg SC DAILY CARLOS; Protocol Last Admin: 08/01/18 09:22 Dose: 40 mg Ibuprofen (Motrin Tab) 400 mg PO Q6H PRN PRN Reason: Pain, Mild (1-3) Last Admin: 07/30/18 20:42 Dose: 400 mg Levofloxacin (Levaquin) 500 mg PO DAILY [facility] Last Admin: 08/01/18 09:22 Dose: 500 mg Oxycodone HCl (Oxycodone Immediate Release Tab) 5 mg PO Q6H PRN PRN Reason: Pain, severe (8-10) Last Admin: 08/01/18 09:21 Dose: 5 mg Pantoprazole Sodium (Protonix Ec Tab) 40 mg PO 0600 [facility] Last Admin: 08/01/18 05:52 Dose: 40 mg Polyethylene Glycol (Miralax) 17 gm PO DAILY PRN PRN Reason: Constipation Pregabalin (Lyrica) 75 mg PO BID [facility] Sucralfate (Carafate Oral Susp) 1 gm PO BID [facility] Last Admin: 08/01/18 09:22 Dose: 1 gm - Labs Labs: 08/01/18 05:00 08/01/18 05:00 PT 10.9 SECONDS (9.4-12.5) 07/28/18 11:30 INR 0.95 07/28/18 11:30 APTT 28.1 Seconds (25.1-36.5) 07/28/18 11:30 Attending/Attestation - Attestation I have personally seen and examined this patient.: Yes I have fully participated in the care of the patient.: Yes I have reviewed all pertinent clinical information, including history, physical exam and plan: Yes Notes (Text): Patient seen and examined by me with resident at 11:20AM with resident 07/31/18. Case including HPI, physical exam, and assessment and plan discussed with mercedes garcia. Agree with above with following additions/corrections. Patient is a 58-year-old female past medical history significant for SLE, thyroid nodules, rheumatoid arthritis, CREST syndrome, gastritis, anxiety, and breast cancer status post right lumpectomy that presented to the emergency room with right sided pain and weakness. Patient states she was feeling better. However she hurt her right side on the side of the bed and now is having pain. Pain is under her right breast and the pain goes from her head to her right foot on the right side. Also complains of right foot numbness. Headache has improved. Still with dysuria and increased urine frequency. Still with pleuritic chest pain. No shortness of breath. No nausea or vomiting. No dizziness. No fevers or chills. Physical exam: General: Awake and lying in bed in no acute distress HEENT: Normocephalic, atraumatic. Extraocular muscles intact, pupils equal and reactive, no scleral icterus. Oropharynx is pink and moist. Neck is supple. Cardiovascular: Regular rhythm. Normal S1 and S2. No rubs or gallops appreciated Pulmonary: Normal respiratory effort. No rhonchi, rales, or wheezing appreciated. Gastrointestinal: Soft, nondistended. Positive generalized tenderness more prominent right upper quadrant. Positive bowel sounds all 4 quadrants. Positive voluntary guarding. Musculoskeletal: Moves all extremities. No calf tenderness. No CVA tenderness. No edema appreciated Central nervous system: AAO x3, CN 2-12 grossly intact. Right side upper and lower extremity weakness when compared to the left, however, this may be sec ondary to patient's effort secondary to pain. Dermatologic: Skin warm and dry. Assessment and plan: Patient is a 58-year-old female past medical history significant for SLE, thyroid nodules, rheumatoid arthritis, CREST syndrome, gastritis, anxiety, and breast cancer status post right lumpectomy that presented to the emergency room with right sided pain and weakness. 1. Chest pain. Pleuritic. Pain reproducible. D-dimer elevated. Continue levaquin for possible developing pneumonia. Patient unable to get CTA secondary to dye allergy. Unable to get VQ scan secondary to national isotope shortage. Patient is likely low risk for PE. Seen by synthetic cloth binding cutter. Patient to get V/Q scan as outpatient. Venous dopplers negative for DVT. Patient not tachycardic or hypoxic. Troponin within normal limits. Chest x-ray per radiologist shows opacity at right base, possibly some segmental atelectasis versus pneumonia, possible small right pleural effusion, mildly elevated right hemidiaphragm. Chest CT per radiologist showed no evidence of splenic hematoma, bibasilar subsegmental infiltrates with an air bronchograms right greater than left, atelectasis versus developing pneumonia. Rib x-rays per radiologist showed displaced fractures are seen of the left fifth, sixth, and seventh ribs, there is some callus formation around the fractures in the [place] the fractures are subacute or chronic. 2. Right sided weakness and pain. Also with right foot numbness. CVA ruled out. Continue aspirin. Neurology following, recommendations appreciated. Patient requesting second opinion. Neurology Dr. Whitaker consulted, follow up recommendations. Head CT per radiologist showed no acute intracranial abnormality. MRI brain per radiologist showed unremarkable noncontrast enhanced MRI of the brain. Lumbar spine CT per radiologist showed moderate facet arthropathy at L3-L4 and L4-L5, no acute findings. Continue physical therapy. Physical therapy recommends subacute rehabilitation. Pending [facility]ESS placement. Started on lyrica today. 3. Dysphagia. Patient seen by speech and swallow. Continue with dysphagia diet. Continue with aspiration precautions. 4. Abdominal pain. Status post cholecystectomy and appendectomy. History of gastritis. Continue home Carafate and dicyclomine. Continue Protonix. Abdominal ultrasound per radiologist showed complex appearing fluid collection adjacent to the spleen, rule out hematoma versus other pathology; multiple bilateral renal cysts; small nonobstructing calculus that was seen lower pole collecting system left kidney on prior CT scan not appreciated on this study; suspect fatty hepatic infiltration. CT abdomen and pelvis shows no splenic hematoma, no acute findings. 5. UTI. Patient symptomatic. Urine culture positive for Escherichia coli and staph epidermidis. Continue Levaquin. 6. History of breast cancer. Patient states that she was recently diagnosed with a new lump on her left breast. Patient is following up outpatient for this. 7. SLE. Crest syndrome. Rheumatoid arthritis. Patient is on methotrexate at home. Pain may be secondary to lupus. Continue to monitor for now. 8. Hypokalemia. Resolved. Continue to monitor. 9. Anxiety. Continue alprazolam 1 mg TID as needed. 10. GI/DVT prophylaxis. Protonix/Lovenox 11. Patient is a full code Case was discussed in detail with the patient regarding current diagnosis and treatment plan. All questions answered.
[2018-07-31] MEDS ORDERED: Morphine 2 mg/ml ISec IVP ONE (22:36)
[2018-08-01] MEDS: Pantoprazole 40 mg EC Tab PO SCH (05:52)
[2018-08-01] MEDS ORDERED: Morphine 2 mg/ml ISec IVP ONE (05:58)
[2018-08-01 06:42] LABS: ALBUMIN 3.9 g/dL (3.0-4.8); ALT/SGPT 18 U/L (7-56); AST/SGOT 28 U/L (14-36); BLOOD UREA NITROGEN 12 mg/dL (7-21); CALCIUM 8.8 mg/dL (8.4-10.5); GFR NON-AFRICAN AMERICAN 51
[2018-08-01 07:19] LABS: BASO # 0.01 K/mm3 (0.0-2.0); BASO % 0.2 % (0.0-3.0); EOS # 0.5 (0.0-0.7); EOS % 8.3 % (1.5-5.0); GRAN % 49.9 % (50.0-68.0); HEMOGLOBIN 12.9 g/dL (12.0-16.0); LYMPH # 1.8 (1.2-3.4); LYMPH % 30.6 % (22.0-35.0); MEAN CELL VOLUME 87.1 fl (80.0-105.0); MEAN CORPUSCULAR HEMOGLOBIN 28.2 pg (25.0-35.0); MEAN CORPUSCULAR HGB CONC 32.4 g/dl (31.0-37.0); MEAN PLATELET VOLUME 9.1 fl (7.0-11.0); MONO # 0.7 (0.1-0.6); RBC 4.57 10^6/uL (3.5-6.1)
[2018-08-01] MEDS ORDERED: Potassium Chloride 20 mEq ER Tab PO STA (08:06)
[2018-08-01] MEDS: oxyCODONE 5 mg Immediate Release Tab PO PRN ×3 (09:21→22:24)
[2018-08-01] MEDS: levoFLOXacin 500 MG TAB PO SCH (09:22)
[2018-08-01] MEDS: Sucralfate 1 gm/10 ml Oral Susp UD PO SCH ×2 (09:22→17:22)
[2018-08-01] MEDS: Enoxaparin 40 mg Syringe SC SCH (09:22)
[2018-08-01] MEDS ORDERED: oxyCODONE 5 mg Immediate Release Tab PO SCH (10:00)
--- NOTE | 2018-08-01 15:53 | CT ---
Date of service: 08/01/2018 PROCEDURE: CT HEAD WITHOUT CONTRAST. HISTORY: hematoma head COMPARISON: None available. TECHNIQUE: Axial computed tomography images were obtained through the head/brain without intravenous contrast. Radiation dose: Total exam DLP = 1002.49 mGy-cm. This CT exam was performed using one or more of the following dose reduction techniques: Automated exposure control, adjustment of the mA and/or kV according to patient size, and/or use of iterative reconstruction technique. FINDINGS: HEMORRHAGE: No intracranial hemorrhage. BRAIN: No mass effect or edema. No atrophy or chronic microvascular ischemic changes. VENTRICLES: Unremarkable. No hydrocephalus. CALVARIUM: Unremarkable. PARANASAL SINUSES: Unremarkable as visualized. No significant inflammatory changes. MASTOID AIR CELLS: Unremarkable as visualized. No inflammatory changes. OTHER FINDINGS: None. IMPRESSION: No acute intracranial findings
--- NOTE | 2018-08-01 17:22 | CP.PCM.PN ---
<Tre Watkins - Last Filed: 08/01/18 18:04> Subjective - Date & Time of Evaluation Date of Evaluation: 08/01/18 Time of Evaluation: 17:19 - Subjective Subjective: Resident Tre Watkins DO PGY1 Hospitalist Progress Note for: Dr. Nir Skinner: Pt was seen and examined this morning at bedside. She continues to complain of R sided headache, R arm and leg pain with leg weakness. She state that she recently sustained a fall and broke a rib on her L side, but had no contusion or fracture on the R. She denies having any SOB, cough, fevers, chills, dysuria, hematuria. She admits to RUQ abd pain worse with palpation, pleuritic chest pain and chest tightness. She admits today that she hit her head on a TV last night and has a bump on her head, but no exacerbation of any numbness, tingling or no new symptoms of pain or weakness. Objective - Vital Signs/Intake and Output Vital Signs (last 24 hours): Temp Pulse Resp BP Pulse Ox 98.5 F 101 H 20 113/70 96 08/01/18 14:00 08/01/18 14:00 08/01/18 14:00 08/01/18 14:00 08/01/18 14:00 - Medications Medications: Current Medications Acetaminophen (Tylenol 325mg Tab) 650 mg PO Q6H PRN PRN Reason: Headache Last Admin: 07/31/18 20:15 Dose: 650 mg Albuterol/Ipratropium (Duoneb 3 Mg/0.5 Mg (3 Ml) Ud) 3 ml IH Q2H PRN PRN Reason: Shortness of Breath Alprazolam (Xanax) 1 mg PO TID PRN; Protocol PRN Reason: Anxiety Last Admin: 08/01/18 14:19 Dose: 1 mg Aspirin (Ecotrin) 81 mg PO DAILY [place] Last Admin: 08/01/18 09:22 Dose: 81 mg Cyclobenzaprine HCl (Flexeril) 5 mg PO TID PRN PRN Reason: Muscle spasm Last Admin: 07/31/18 22:56 Dose: 5 mg Dicyclomine HCl (Bentyl) 10 mg PO BID PRN PRN Reason: Irritable bowel symptoms Diphenhydramine HCl (Benadryl) 25 mg PO HS PRN PRN Reason: Insomnia Last Admin: 07/30/18 20:42 Dose: 25 mg Enoxaparin Sodium (Lovenox) 40 mg SC DAILY [facility]; Protocol Last Admin: 08/01/18 09:22 Dose: 40 mg Ibuprofen (Motrin Tab) 400 mg PO Q6H PRN PRN Reason: Pain, Mild (1-3) Last Admin: 07/30/18 20:42 Dose: 400 mg Levofloxacin (Levaquin) 500 mg PO DAILY [facility] Last Admin: 08/01/18 09:22 Dose: 500 mg Oxycodone HCl (Oxycodone Immediate Release Tab) 5 mg PO Q6H PRN PRN Reason: Pain, severe (8-10) Last Admin: 08/01/18 09:21 Dose: 5 mg Pantoprazole Sodium (Protonix Ec Tab) 40 mg PO 0600 [facility] Last Admin: 08/01/18 05:52 Dose: 40 mg Polyethylene Glycol (Miralax) 17 gm PO DAILY PRN PRN Reason: Constipation Pregabalin (Lyrica) 75 mg PO BID [facility] Sucralfate (Carafate Oral Susp) 1 gm PO BID [facility] Last Admin: 08/01/18 09:22 Dose: 1 gm - Labs Labs: 08/01/18 05:00 08/01/18 05:00 PT 10.9 SECONDS (9.4-12.5) 07/28/18 11:30 INR 0.95 07/28/18 11:30 APTT 28.1 Seconds (25.1-36.5) 07/28/18 11:30 - Constitutional Appears: Well, Non-toxic, No Acute Distress - Head Exam Head Exam: ATRAUMATIC, NORMAL INSPECTION, NORMOCEPHALIC - Eye Exam Eye Exam: EOMI, Normal appearance, PERRL - Respiratory Exam Respiratory Exam: Clear to Ausculation Bilateral, NORMAL BREATHING PATTERN. absent: Accessory Muscle Use, Decreased Breath Sounds, Rales, Rhonchi, Wheezes, Respiratory Distress, Stridor - Cardiovascular Exam Cardiovascular Exam: RRR, +S1, +S2. absent: Gallop, Rubs - GI/Abdominal Exam GI & Abdominal Exam: Soft, Normal Bowel Sounds. absent: Guarding, Rigid, Tenderness - Extremities Exam Extremities Exam: absent: Calf Tenderness - Back Exam Back Exam: NORMAL INSPECTION. absent: CVA tenderness (L), CVA tenderness (R) - Neurological Exam Neurological Exam: Alert, Awake, Oriented x3 - Psychiatric Exam Psychiatric exam: Normal Affect, Normal Mood - Skin Skin Exam: Dry, Intact, Normal Color, Warm Assessment and Plan - Assessment and Plan (Free Text) Assessment: Pt is a 58 yo female with extensive past medical history that includes SLE, hyperthyroidism, RA, CREST syndrome, gastritis, breast cancer s/p R lumpectomy presenting to the ED with worsening generalized R sided pain x 1-[address] head is negative for acute hemorrhage, CXR showed an opacity in the RL base, atelectasis vs PNA. Brain MRI and Lumbosacral CT show no gross abnormality to explain pts symptoms, detailed below. CT head obtained since pt hit her head on TV overnight. Plan: 1. Pleuritic chest pain, Decreased breath sounds--r/o PE vs PNA: - D dimer: 671 - CXR: opacity R lung base, subsegmental atelectasis vs PNA; Possible small R pleural effusion, mildly elevated R hemidiaphragm - EKG: NSR @ 89 bpm, somatic tremors - Rib series XR: Rib fractures at L ribs 5,6, 7 - Emir prn - Pulmonology recs appreciated : Wells score is 1 at best = low probability of PE, f/u V/Q scan outpt - Blood culture - no growth - Cont levofloxin 500 mg IV QD 2. R sided numbness/weakness--r/o CVA - Neurochecks qshift - PT on board : [facility] upon d/c - Duplex b/l LE - No evidence of DVT - Head CT w/o contrast: No acute intracranial hemorrhage - Brain MRI: No mass effect or edema, no significant atrophy - LS CT = L3-4 and L4-5 facet arthropathy - Neurology consulted: MRI of brain w/o contrast, CT of Lumbosacral region, Cont ASA 3. Headache s/p hitting head: - No exacerbation of numbness, tingling, weakness or pain. - CT head ordered, f/u official read. - Will continue to monitor pt for any new neuro developments. 4. RUQ abd pain s/p ang - Abd u/s complex fluid accumulation noted around the spleen, hematoma vs other path. Multiple b/l renal cysts. Fatty infiltration of liver. - Lipase wnl - No evidence of splenic hematoma, atelectasis vs PNA 5. Dysphagia, hx hiatal hernia, gastritis and hx of CREST - Aspiration precautions - Puree, thin liquid diet - Speech and swallow eval - Thin liquids and dysphagia level 2 diet. - Continue home dicyclomine, carofate - Protonix 6. UTI - UA: +Bacteria, LE, small blood - Levofloxacin 750 mg x1 in ED - Levofloxacin 250 mg IV [place] - Urine culture pending 7. Hx anxiety -continue home alprazolam 1mg TID 8. Hx of SLE, CREST syndrome and RA - Pt is on methotrexate at home - Pain may be 2/2 lupus 9. PPx, Diet, Disposition -DVT: lovenox -GI: protonix -Diet: puree, thin liquid Dispo: [facility] per PT Case discussed with Dr. Nir Watkins DO, PGY-1 <Valerie Skinner R - Last Filed: 08/02/18 14:00> Objective - Vital Signs/Intake and Output Vital Signs (last 24 hours): Temp Pulse Resp BP Pulse Ox 97.9 F 77 20 104/57 L 95 08/02/18 06:00 08/02/18 06:00 08/02/18 06:00 08/02/18 06:00 08/02/18 06:00 Intake and Output: 08/02/18 08/02/18 06:59 18:59 Intake Total 150 Balance 150 - Medications Medications: Current Medications Acetaminophen (Tylenol 325mg Tab) 650 mg PO Q6H PRN PRN Reason: Headache Last Admin: 07/31/18 20:15 Dose: 650 mg Albuterol/Ipratropium (Duoneb 3 Mg/0.5 Mg (3 Ml) Ud) 3 ml IH Q2H PRN PRN Reason: Shortness of Breath Alprazolam (Xanax) 1 mg PO TID PRN; Protocol PRN Reason: Anxiety Last Admin: 08/02/18 10:02 Dose: 1 mg Aspirin (Ecotrin) 81 mg PO DAILY [place] Last Admin: 08/02/18 10:01 Dose: 81 mg Cyclobenzaprine HCl (Flexeril) 5 mg PO TID PRN PRN Reason: Muscle spasm Last Admin: 08/02/18 10:01 Dose: 5 mg Dicyclomine HCl (Bentyl) 10 mg PO BID PRN PRN Reason: Irritable bowel symptoms Last Admin: 08/02/18 10:01 Dose: 10 mg Diphenhydramine HCl (Benadryl) 25 mg PO HS PRN PRN Reason: Insomnia Last Admin: 08/01/18 22:03 Dose: 25 mg Enoxaparin Sodium (Lovenox) 40 mg SC DAILY [facility]; Protocol Last Admin: 08/02/18 10:02 Dose: 40 mg Ibuprofen (Motrin Tab) 400 mg PO Q6H PRN PRN Reason: Pain, Mild (1-3) Last Admin: 07/30/18 20:42 Dose: 400 mg Levofloxacin (Levaquin) 500 mg PO DAILY [facility] Last Admin: 08/02/18 10:05 Dose: 500 mg Ondansetron HCl (Zofran Inj) 4 mg IVP Q6H PRN PRN Reason: Nausea/Vomiting Last Admin: 08/02/18 11:20 Dose: 4 mg Oxycodone HCl (Oxycodone Immediate Release Tab) 5 mg PO Q8H PRN PRN Reason: Pain, severe (8-10) Pantoprazole Sodium (Protonix Ec Tab) 40 mg PO 0600 [facility] Last Admin: 08/02/18 07:06 Dose: 40 mg Polyethylene Glycol (Miralax) 17 gm PO DAILY PRN PRN Reason: Constipation Pregabalin (Lyrica) 75 mg PO TID [facility] Sucralfate (Carafate Oral Susp) 1 gm PO BID [facility] Last Admin: 08/02/18 10:02 Dose: 1 gm - Labs Labs: 08/02/18 07:00 08/02/18 07:00 PT 10.9 SECONDS (9.4-12.5) 07/28/18 11:30 INR 0.95 07/28/18 11:30 APTT 28.1 Seconds (25.1-36.5) 07/28/18 11:30 Attending/Attestation - Attestation I have personally seen and examined this patient.: Yes I have fully participated in the care of the patient.: Yes I have reviewed all pertinent clinical information, including history, physical exam and plan: Yes Notes (Text): Patient seen and examined by me with resident at 10:35AM on 08/01/18. Case including HPI, physical exam, and assessment and plan discussed with resident. Agree with above with following additions/corrections. Patient is a 58-year-old female past medical history significant for SLE, thyroid nodules, rheumatoid arthritis, CREST syndrome, gastritis, anxiety, and breast cancer status post right lumpectomy that presented to the emergency room with right sided pain and weakness. Patient states she is feeling ok. States she was having right sided headache after hitting her head on the TV last night. Patient received Morphine with improvement in pain. Shira states headache is much better today. Patient states the pain under her right breast and the pain from her head to her right foot on the right side has improved. Still with right foot and leg numbness. Still with dysuria. Pleuritic chest pain improved. No shortness of breath. No nausea or vomiting. No dizziness. No fevers or chills. Physical exam: General: Awake and lying in bed in no acute distress HEENT: Normocephalic, atraumatic. Extraocular muscles intact, pupils equal and reactive, no scleral icterus. Oropharynx is pink and moist. Neck is supple. Cardiovascular: Regular rhythm. Normal S1 and S2. No rubs or gallops appreciated Pulmonary: Normal respiratory effort. No rhonchi, rales, or wheezing appreciated. Gastrointestinal: Soft, nondistended. Positive generalized tenderness more prominent right upper quadrant. Positive bowel sounds all 4 quadrants. Positive voluntary guarding. Musculoskeletal: Moves all extremities. No calf tenderness. No CVA tenderness. No edema appreciated Central nervous system: AAO x3, CN 2-12 grossly intact. Right side upper and lower extremity weakness when compared to the left, however, this may be secondary to patient's effort secondary to pain. Right leg numbness when compared to left Dermatologic: Skin warm and dry. Assessment and plan: Patient is a 58-year-old female past medical history significant for SLE, thyroid nodules, rheumatoid arthritis, CREST syndrome, gastritis, anxiety, and breast cancer status post right lumpectomy that presented to the emergency room with right sided pain and weakness. 1. Chest pain. Pleuritic. Pain reproducible. Improving. D-dimer elevated. Continue levaquin for possible developing pneumonia. Patient unable to get CTA secondary to dye allergy. Unable to get VQ scan secondary to national isotope shortage. Patient is likely low risk for PE. Seen by cable dispatcher. Patient to get V/Q scan as outpatient. Venous dopplers negative for DVT. Patient not tachycardic or hypoxic. Troponin within normal limits. Chest x-ray per radiologist shows opacity at right base, possibly some segmental atelectasis versus pneumonia, possible small right pleural effusion, mildly elevated right hemidiaphragm. Chest CT per radiologist showed no evidence of splenic hematoma, bibasilar subsegmental infiltrates with an air bronchograms right greater than left, atelectasis versus developing pneumonia. Rib x-rays per radiologist showed displaced fractures are seen of the left fifth, sixth, and seventh ribs, there is some callus formation around the fractures, the fractures are subacute or chronic. 2. Right sided weakness and pain. Also with right foot numbness. CVA ruled out. Continue aspirin. Neurology following, recommendations appreciated. Patient requesting second opinion. Neurology Dr. Whitaker consulted, recommendations appreciated. Lyrica dose increased per neurology. Head CT per radiologist showed no acute intracranial abnormality. MRI brain per radiologist showed unremarkable noncontrast enhanced MRI of the brain. Lumbar spine CT per radiologist showed moderate facet arthropathy at L3-L4 and L4-L5, no acute findings. Continue physical therapy. Physical therapy recommends subacute rehabilitation. Pending [facility]ESS placement. 3. Headache. s/p hitting head on TV. Will repeat head CT 4. Dysphagia. Patient seen by speech and swallow. Continue with dysphagia diet. Continue with aspiration precautions. 4. Abdominal pain. Status post cholecystectomy and appendectomy. History of gastritis. Continue home Carafate and dicyclomine. Continue Protonix. Abdominal ultrasound per radiologist showed complex appearing fluid collection adjacent to the spleen, rule out hematoma versus other pathology; multiple bilateral renal cysts; small nonobstructing calculus that was seen lower pole collecting system left kidney on prior CT scan not appreciated on this study; suspect fatty hepatic infiltration. CT abdomen and pelvis shows no splenic hematoma, no acute findings. 5. UTI. Patient symptomatic. Urine culture positive for Escherichia coli and staph epidermidis. Continue Levaquin. 6. History of breast cancer. Patient states that she was recently diagnosed with a new lump on her left breast. Patient is following up outpatient for this. 7. SLE. Crest syndrome. Rheumatoid arthritis. Patient is on methotrexate at home. Pain may be secondary to lupus. Continue to monitor for now. 8. Hypokalemia. Resolved. Continue to monitor. 9. Anxiety. Continue alprazolam 1 mg TID as needed. 10. GI/DVT prophylaxis. Protonix/Lovenox 11. Patient is a full code Case was discussed in detail with the patient regarding current diagnosis and treatment plan. All questions answered.
--- NOTE | 2018-08-01 19:03 | CON ---
DATE: 08/01/2018 SECOND OPINION NEUROLOGY CONSULTATION CHIEF COMPLAINT: Second opinion for right-sided pain. HISTORY OF PRESENT ILLNESS: A 58-year-old woman with extensive past medical history including SLE; hyperthyroidism; rheumatoid arthritis; Crush syndrome; gastritis; breast cancer, status post lumpectomy 20 years ago, presented to the ER with a sudden onset of right-sided rib pain, as well as under the breast, right sided pain, as well as right arm and right leg pain. She had a mechanical fall, which resulted in rib fractures at the left 5th, 6th, and 7th intercostal ribs. CAT scan of the head showed no acute intracranial abnormalities. Her brain MRI showed no acute intracranial abnormalities as well. Lumbosacral CT showed no gross abnormalities. Mild multilevel degenerative changes. She has an opacity in the right lung base and treated for possible underlying pneumonia. Currently, she mentioned that her right-sided chest pain underneath the right breast where she had a lumpectomy, and had some tenderness and right-sided numbness and pain in the right arm and leg. She also has rib fractures on the left, where she does have pain, but not as much as she is having on the right. She has a questionable slurred speech, but no focal neurological deficits are seen on exam. She suffered tenderness upon touch underneath the right breast area at T4 towards the right. No focal weakness of the extremities seen. She does have evidence of peripheral neuropathy on neuro examination for underlying rheumatoid arthritis and SLE. PAST MEDICAL HISTORY: As above. ALLERGIES: ALLERGIC TO ERYTHROMYCIN BASED AND IV PENICILLIN. FAMILY HISTORY: Noncontributory. MEDICATIONS: Reviewed by nurse's reconciliation sheet. REVIEW OF SYSTEMS: A 14-point review of systems as per the HPI. SOCIAL HISTORY: No illicit drug use, smoking, or EtOH abuse. LABORATORY DATA: Sodium is 140, potassium 3.5, chloride 102, carbon dioxide 30, BUN of 12, creatinine 1.1. Random glucose of 107. PHYSICAL EXAMINATION: GENERAL: The patient is seen in bed, no acute distress, in mild pain. VITAL SIGNS: Temperature 98.5, pulse rate 77, blood pressure 108/69, respiratory rate 20, oxygen saturation 96% on room air. HEENT: Atraumatic, normocephalic. PERRLA. Extraocular muscles intact. NECK: Supple. No JVD. No adenopathy noted. LUNGS: Decreased breath sounds bilaterally. HEART: S1 and S2. Normal rate and rhythm. No murmurs, rubs, or gallops. ABDOMEN: Soft, nontender, and nondistended. Bowel sounds are present. EXTREMITIES: No clubbing. No cyanosis. Peripheral pulses 2+ felt bilaterally. MUSCULOSKELETAL: She has pain underneath the right breast, which is in a dermatomal pattern, could be atypical neuralgiform pain. NEUROLOGICAL: The patient is alert and oriented to person, place, month, and year. Speech is fluent without any errors. Cranial nerves II through XII intact. Motor: Moves all extremities equally. No pronator drift seen. Sensory: Decreased light touch and pinprick up to the calves bilaterally. Decreased vibration of the toes. DTRs are 2+ throughout, 1 at both knees and ankles. Coordination: [id number] intact. No dysmetria noted. Gait is deferred for now. IMPRESSION: This is a 58-year-old woman, who has past medical history of systemic lupus erythematosus; hyperthyroidism; rheumatoid arthritis; Crush syndrome; gastritis; breast cancer, status post lumpectomy 20 years ago, presented to the ER with sudden onset of right-sided pain, especially on the right side of the breast, dermatomal in distribution. Also left-sided pain from sustaining a fall few weeks ago, which resulted in the left side 5, 6, and 7 rib fractures and also had pain in the right arm and right leg. Her pain seems most likely of underlying complex regional pain syndrome from underlying fracture of the left rib. Her right-sided pain underneath the right breast seems more likely atypical neuralgiform pain; though there is no rash or shingles, could be an atypical shingle type since her body is under a lot of stress and immunocompromised from underlying autoimmune conditions. Lyrica 50 mg did help, so it means that Lyrica does help a neuropathic pain. RECOMMENDATIONS: At this time, we will recommend: 1. Ultrasound of her right breast. 2. X-rays of the right-sided ribs. 3. We will recommend increasing Lyrica to 75 mg p.o. t.i.d. for neuropathic release and reduce the amount of opiates that are being given. 4. Recommend subacute rehab. 5. Continue with for underlying urinary tract infection with E. coli and staph epidermis. Thank you for this consult. Cristiano Whitaker MD
[2018-08-01] MEDS: DiphenhydrAMINE 12.5 mg/5 ml LIQ UD (5 ml) PO PRN (22:03)
[2018-08-02] MEDS: oxyCODONE 5 mg Immediate Release Tab PO PRN ×2 (07:05→17:21)
[2018-08-02] MEDS: Pantoprazole 40 mg EC Tab PO SCH (07:06)
[2018-08-02 08:02] LABS: BASO # 0.02 K/mm3 (0.0-2.0); BASO % 0.3 % (0.0-3.0); EOS # 0.7 (0.0-0.7); EOS % 9.9 % (1.5-5.0); GRAN # 3.75 (1.4-6.5); GRAN % 49.9 % (50.0-68.0); HEMOGLOBIN 13.1 g/dL (12.0-16.0); LYMPH # 2.2 (1.2-3.4); LYMPH % 29.1 % (22.0-35.0); MEAN CELL VOLUME 86.8 fl (80.0-105.0); MEAN CORPUSCULAR HGB CONC 32.3 g/dl (31.0-37.0); MONO # 0.8 (0.1-0.6); MONO % 10.8 % (1.0-6.0); RBC 4.68 10^6/uL (3.5-6.1); WHITE BLOOD COUNT 7.5 10^3/uL (4.5-11.0)
[2018-08-02 08:16] LABS: ALB/GLOB RATIO 0.9 (1.1-1.8); ALBUMIN 3.8 g/dL (3.0-4.8); ALT/SGPT 25 U/L (7-56); AST/SGOT 44 U/L (14-36); BLOOD UREA NITROGEN 13 mg/dL (7-21); CALCIUM 9.2 mg/dL (8.4-10.5); GFR NON-AFRICAN AMERICAN 51
[2018-08-02] MEDS: Sucralfate 1 gm/10 ml Oral Susp UD PO SCH ×2 (10:02→17:21)
[2018-08-02] MEDS: Enoxaparin 40 mg Syringe SC SCH (10:02)
[2018-08-02] MEDS: levoFLOXacin 500 MG TAB PO SCH (10:05)
[2018-08-02] MEDS ORDERED: Potassium Chloride 20 mEq ER Tab PO STA (10:22)
--- NOTE | 2018-08-02 18:53 | CP.PCM.PN ---
<Rand Robert - Last Filed: 08/02/18 18:50> Subjective - Date & Time of Evaluation Date of Evaluation: 08/02/18 Time of Evaluation: 10:00 - Subjective Subjective: Rand Robert PGY1 Medicine Progress Note Patient seen and examined at bedside this morning. No acute events overnight. Offers no new complaints today. Admits to non worsening headache and right right arm pain. Denies CP, SOB, fevers, urinary complaints, numbness, tingling and abdominal pain. Objective - Vital Signs/Intake and Output Vital Signs (last 24 hours): Temp Pulse Resp BP Pulse Ox 97.9 F 77 20 104/57 L 95 08/02/18 06:00 08/02/18 06:00 08/02/18 06:00 08/02/18 06:00 08/02/18 06:00 Intake and Output: 08/02/18 08/02/18 06:59 18:59 Intake Total 150 Balance 150 - Medications Medications: Current Medications Acetaminophen (Tylenol 325mg Tab) 650 mg PO Q6H PRN PRN Reason: Headache Last Admin: 07/31/18 20:15 Dose: 650 mg Albuterol/Ipratropium (Duoneb 3 Mg/0.5 Mg (3 Ml) Ud) 3 ml IH Q2H PRN PRN Reason: Shortness of Breath Alprazolam (Xanax) 1 mg PO TID PRN; Protocol PRN Reason: Anxiety Last Admin: 08/02/18 17:32 Dose: 1 mg Aspirin (Ecotrin) 81 mg PO DAILY [facility] Last Admin: 08/02/18 10:01 Dose: 81 mg Cyclobenzaprine HCl (Flexeril) 5 mg PO TID PRN PRN Reason: Muscle spasm Last Admin: 08/02/18 10:01 Dose: 5 mg Dicyclomine HCl (Bentyl) 10 mg PO BID PRN PRN Reason: Irritable bowel symptoms Last Admin: 08/02/18 10:01 Dose: 10 mg Diphenhydramine HCl (Benadryl) 25 mg PO HS PRN PRN Reason: Insomnia Last Admin: 08/01/18 22:03 Dose: 25 mg Enoxaparin Sodium (Lovenox) 40 mg SC DAILY CARLOS; Protocol Last Admin: 08/02/18 10:02 Dose: 40 mg Ibuprofen (Motrin Tab) 400 mg PO Q6H PRN PRN Reason: Pain, Mild (1-3) Last Admin: 07/30/18 20:42 Dose: 400 mg Levofloxacin (Levaquin) 500 mg PO DAILY [facility] Last Admin: 08/02/18 10:05 Dose: 500 mg Ondansetron HCl (Zofran Inj) 4 mg IVP Q6H PRN PRN Reason: Nausea/Vomiting Last Admin: 08/02/18 11:20 Dose: 4 mg Oxycodone HCl (Oxycodone Immediate Release Tab) 5 mg PO Q8H PRN PRN Reason: Pain, severe (8-10) Last Admin: 08/02/18 17:21 Dose: 5 mg Pantoprazole Sodium (Protonix Ec Tab) 40 mg PO 0600 [facility] Last Admin: 08/02/18 07:06 Dose: 40 mg Polyethylene Glycol (Miralax) 17 gm PO DAILY PRN PRN Reason: Constipation Pregabalin (Lyrica) 75 mg PO TID [facility] Last Admin: 08/02/18 17:32 Dose: 75 mg Sucralfate (Carafate Oral Susp) 1 gm PO BID [facility] Last Admin: 08/02/18 17:21 Dose: 1 gm - Labs Labs: 08/02/18 07:00 08/02/18 07:00 PT 10.9 SECONDS (9.4-12.5) 07/28/18 11:30 INR 0.95 07/28/18 11:30 APTT 28.1 Seconds (25.1-36.5) 07/28/18 11:30 - Additional Findings Additional findings: - Constitutional Appears: Well, Non-toxic, No Acute Distress - Head Exam Head Exam: ATRAUMATIC, NORMAL INSPECTION, NORMOCEPHALIC - Eye Exam Eye Exam: EOMI, Normal appearance, PERRL - Respiratory Exam Respiratory Exam: Clear to Ausculation Bilateral, NORMAL BREATHING PATTERN. absent: Accessory Muscle Use, Decreased Breath Sounds, Rales, Wheezes, Respiratory Distress - Cardiovascular Exam Cardiovascular Exam: RRR, +S1, +S2. - GI/Abdominal Exam GI & Abdominal Exam: Soft, Normal Bowel Sounds. absent: Guarding, Rigid, Tenderness - Extremities Exam Extremities Exam: absent: Calf Tenderness - Back Exam Back Exam: NORMAL INSPECTION. absent: CVA tenderness (L), CVA tenderness (R) - Neurological Exam Neurological Exam: Alert, Awake, Oriented x3 - Skin Skin Exam: Dry, Intact, Normal Color, Warm Assessment and Plan - Assessment and Plan (Free Text) Assessment: This is a 58 yo female with extensive past medical history that includes SLE, hyperthyroidism, RA, CREST syndrome, gastritis, breast cancer s/p R lumpectomy presenting to the ED with worsening generalized R sided pain x 1-[address] head is negative for acute hemorrhage, CXR showed an opacity in the RL base, atelectasis vs PNA. Brain MRI and Lumbosacral CT show no gross abnormality to explain pts symptoms, detailed below. CT head obtained since pt hit her head on TV overnight. Awaiting PRINCESS placement. Plan: Chest pain, pleuritic -consider PNA vs PE as etiology -CXR: opacity R lung base, subsegmental atelectasis vs PNA; Possible small R pleural effusion, mildly elevated R hemidiaphragm -Duplex B/L LE shows no evidence of DVT -Wells score 1 correlates with low probability of PE. Patient will need to follow up outpatient with V/Q scan -Pulm on consult -Rib series XR: Rib fractures at L ribs 5,6, 7 -D dimer initially 671 -Duonebs prn -Blood culture shows no growth after 5 days -Cont levofloxin IV R sided weakness -r/o CVA -Head CT w/o contrast: No acute intracranial hemorrhage -Brain MRI shows no mass effect or edema, no significant atrophy -continue neurochecks -Lumbar Spine CT shows L3-4 and L4-5 facet arthropathy -Neurology on consult -awaiting PRINCESS placement Hx of SLE, CREST syndrome and RA - Pt is on methotrexate at home Abdominal pain -uncertain etiology -Abd ultrasound shows complex fluid accumulation noted around the spleen, hematoma vs other path. Multiple b/l renal cysts. Fatty infiltration of liver. - No evidence of splenic hematoma, atelectasis vs PNA -s/p ang -Lipase is unremarkable -CT abdomen and pelvis shows no splenic hematoma, no acute findings Dysphagia -hx CREST and hiatal hernia -Aspiration precautions -Speech and swallow eval -Puree, thin liquid diet -Continue carofate, dicyclomine Hx anxiety -continue home alprazolam PPX with lovenox and protonix Patient seen and discussed with attending, Dr. Skinner <Valerie Skinner R - Last Filed: 08/03/18 07:46> Objective - Vital Signs/Intake and Output Vital Signs (last 24 hours): Temp Pulse Resp BP Pulse Ox 98.4 F 88 20 131/75 94 L 08/02/18 22:00 08/02/18 22:00 08/02/18 22:00 08/02/18 22:00 08/02/18 22:00 - Medications Medications: Current Medications Acetaminophen (Tylenol 325mg Tab) 650 mg PO Q6H PRN PRN Reason: Headache Last Admin: 07/31/18 20:15 Dose: 650 mg Albuterol/Ipratropium (Duoneb 3 Mg/0.5 Mg (3 Ml) Ud) 3 ml IH Q2H PRN PRN Reason: Shortness of Breath Alprazolam (Xanax) 1 mg PO TID PRN; Protocol PRN Reason: Anxiety Last Admin: 08/03/18 01:28 Dose: 1 mg Aspirin (Ecotrin) 81 mg PO DAILY [facility] Last Admin: 08/02/18 10:01 Dose: 81 mg Cyclobenzaprine HCl (Flexeril) 5 mg PO TID PRN PRN Reason: Muscle spasm Last Admin: 08/03/18 05:46 Dose: 5 mg Dicyclomine HCl (Bentyl) 10 mg PO BID PRN PRN Reason: Irritable bowel symptoms Last Admin: 08/02/18 10:01 Dose: 10 mg Diphenhydramine HCl (Benadryl) 25 mg PO HS PRN PRN Reason: Insomnia Last Admin: 08/01/18 22:03 Dose: 25 mg Diphenhydramine HCl (Benadryl) 25 mg PO HS PRN PRN Reason: Insomnia Enoxaparin Sodium (Lovenox) 40 mg SC DAILY [facility]; Protocol Last Admin: 08/02/18 10:02 Dose: 40 mg Ibuprofen (Motrin Tab) 400 mg PO Q6H PRN PRN Reason: Pain, Mild (1-3) Last Admin: 07/30/18 20:42 Dose: 400 mg Levofloxacin (Levaquin) 500 mg PO DAILY [facility] Last Admin: 08/02/18 10:05 Dose: 500 mg Ondansetron HCl (Zofran Inj) 4 mg IVP Q6H PRN PRN Reason: Nausea/Vomiting Last Admin: 08/02/18 11:20 Dose: 4 mg Oxycodone HCl (Oxycodone Immediate Release Tab) 5 mg PO Q8H PRN PRN Reason: Pain, severe (8-10) Last Admin: 08/03/18 02:55 Dose: 5 mg Pantoprazole Sodium (Protonix Ec Tab) 40 mg PO 0600 [facility] Last Admin: 08/03/18 05:47 Dose: 40 mg Polyethylene Glycol (Miralax) 17 gm PO DAILY PRN PRN Reason: Constipation Pregabalin (Lyrica) 75 mg PO TID [facility] Last Admin: 08/02/18 17:32 Dose: 75 mg Sucralfate (Carafate Oral Susp) 1 gm PO BID [facility] Last Admin: 08/02/18 17:21 Dose: 1 gm - Labs Labs: 08/02/18 07:00 08/02/18 07:00 PT 10.9 SECONDS (9.4-12.5) 07/28/18 11:30 INR 0.95 07/28/18 11:30 APTT 28.1 Seconds (25.1-36.5) 07/28/18 11:30 Attending/Attestation - Attestation I have personally seen and examined this patient.: Yes I have fully participated in the care of the patient.: Yes I have reviewed all pertinent clinical information, including history, physical exam and plan: Yes Notes (Text): Patient seen and examined by me with resident at 10:20AM on 08/02/18. Case including HPI, physical exam, and assessment and plan discussed with resident. Agree with above with following additions/corrections. Patient is a 58-year-old female past medical history significant for SLE, thyroid nodules, rheumatoid arthritis, CREST syndrome, gastritis, anxiety, and breast cancer status post right lumpectomy that presented to the emergency room with right sided pain and weakness. Patient states she is feeling a little better. States she is not eating because of throat discomfort which is alway has secondary to her CREST syndrome. Patient states the pain under her right breast and the pain from her head to her right foot on the right side has better today. Right foot and leg still feel numb. Still with dysuria which is chronic for patient. Pleuritic chest pain improved and at baseline per patient. No shortness of breath. No nausea or vomiting. Abdominal pain at bsaeline. No dizziness. No fevers or chills. Patient states that she is using the incentive spirometer. Physical exam: General: Awake and lying in bed in no acute distress HEENT: Normocephalic, atraumatic. Extraocular muscles intact, pupils equal and reactive, no scleral icterus. Oropharynx is pink and moist. Neck is supple. Cardiovascular: Regular rhythm. Normal S1 and S2. No rubs or gallops appreciated Pulmonary: Normal respiratory effort. No rhonchi, rales, or wheezing appreciated. Gastrointestinal: Soft, nondistended. Positive generalized tenderness more prominent right upper quadrant which has improved. Positive bowel sounds all 4 quadrants. Positive out of proportion voluntary guarding. Musculoskeletal: Moves all extremities. No calf tenderness. No CVA tenderness. No edema appreciated Central nervous system: AAO x3, CN 2-12 grossly intact. Right side upper and lower extremity weakness when compared to the left, however, this may be secondary to patient's effort secondary to pain. Right leg numbness when compared to left Dermatologic: Skin warm and dry. Assessment and plan: Patient is a 58-year-old female past medical history significant for SLE, thyroid nodules, rheumatoid arthritis, CREST syndrome, gastritis, anxiety, and breast cancer status post right lumpectomy that presented to the emergency room with right sided pain and weakness. 1. Chest pain. Pleuritic. Pain reproducible. Per patient, now at baseline. D- dimer elevated. Continue levaquin for possible developing pneumonia. Continue incentive spirometer. Patient unable to get CTA secondary to dye allergy. Unable to get VQ scan secondary to national isotope shortage. Patient is likely low risk for PE. Seen by nitrating acid mixer. Patient to get V/Q scan as outpatient. Venous dopplers negative for DVT. Patient not tachycardic or hypoxic. Troponin within normal limits. Chest x-ray per radiologist shows opacity at right base, possibly some segmental atelectasis versus pneumonia, possible small right pleu ral effusion, mildly elevated right hemidiaphragm. Chest CT per radiologist showed no evidence of splenic hematoma, bibasilar subsegmental infiltrates with an air bronchograms right greater than left, atelectasis versus developing pneumonia. Rib x-rays per radiologist showed displaced fractures are seen of the left fifth, sixth, and seventh ribs, there is some callus formation around the fractures, the fractures are subacute or chronic. 2. Right sided weakness and pain. Also with right foot numbness. CVA ruled out. Continue aspirin. Neurology following, recommendations appreciated. Patient re quested second opinion. Neurology Dr. Whitaker consulted, recommendations appreciated. Lyrica dose increased to 75mg TID and oxycodone decreased per neurology. Follow up right breast ultrasound. Head CT per radiologist showed no acute intracranial abnormality. MRI brain per radiologist showed unremarkable noncontrast enhanced MRI of the brain. Lumbar spine CT per radiologist showed moderate facet arthropathy at L3-L4 and L4-L5, no acute findings. Continue physical therapy. Physical therapy recommends subacute rehabilitation. Pending PRINCESS placement. 3. Headache. s/p hitting head on TV. Improved. Repeat head CT per radiologist showed no acute intracranial findings. 4. Dysphagia. Speech and swallow following, recommendations appreciated. Continue with dysphagia diet. Continue with aspiration precautions. 4. Abdominal pain. Status post cholecystectomy and appendectomy. History of gastritis. Continue Carafate and dicyclomine. Continue Protonix. Started on Zofran as needed. Abdominal ultrasound per radiologist showed complex appearing fluid collection adjacent to the spleen, rule out hematoma versus other pathology; multiple bilateral renal cysts; small nonobstructing calculus that was seen lower pole collecting system left kidney on prior CT scan not appreciated on this study; suspect fatty hepatic infiltration. CT abdomen and pelvis shows no splenic hematoma, no acute findings. 5. UTI. Patient symptomatic. Urine culture positive for Escherichia coli and staph epidermidis. Continue Levaquin. 6. History of breast cancer. Patient states that she was recently diagnosed with a new lump on her left breast. Patient is following up outpatient for this. 7. SLE. Crest syndrome. Rheumatoid arthritis. Patient is on methotrexate at home. Pain may be secondary to lupus. Continue to monitor for now. 8. Hypokalemia. Replete postassium. Continue to monitor. 9. Anxiety. Continue alprazolam 1 mg TID as needed. 10. GI/DVT prophylaxis. Protonix/Lovenox 11. Patient is a full code Case was discussed in detail with the patient regarding current diagnosis and treatment plan. All questions answered
[2018-08-03] MEDS: oxyCODONE 5 mg Immediate Release Tab PO PRN ×3 (02:55→22:28)
[2018-08-03] MEDS: Pantoprazole 40 mg EC Tab PO SCH (05:47)
[2018-08-03 08:15] LABS: BASO # 0.02 K/mm3 (0.0-2.0); BASO % 0.3 % (0.0-3.0); GRAN # 3.35 (1.4-6.5); GRAN % 43.1 % (50.0-68.0); HEMOGLOBIN 13.3 g/dL (12.0-16.0); LYMPH # 2.5 (1.2-3.4); LYMPH % 32.5 % (22.0-35.0); MEAN CORPUSCULAR HEMOGLOBIN 27.8 pg (25.0-35.0); MEAN PLATELET VOLUME 9.1 fl (7.0-11.0); MONO # 0.9 (0.1-0.6); MONO % 11.1 % (1.0-6.0); RBC 4.78 10^6/uL (3.5-6.1); RED CELL DISTRIBUTION WIDTH 13.8 % (11.5-14.5); WHITE BLOOD COUNT 7.8 10^3/uL (4.5-11.0)
[2018-08-03 08:20] LABS: ALBUMIN 3.9 g/dL (3.0-4.8); ALT/SGPT 27 U/L (7-56); AST/SGOT 41 U/L (14-36); BLOOD UREA NITROGEN 14 mg/dL (7-21); CALCIUM 9.2 mg/dL (8.4-10.5); GFR NON-AFRICAN AMERICAN 51
[2018-08-03] MEDS: levoFLOXacin 500 MG TAB PO SCH (09:12)
[2018-08-03] MEDS: Sucralfate 1 gm/10 ml Oral Susp UD PO SCH ×2 (09:12→17:46)
[2018-08-03] MEDS: Enoxaparin 40 mg Syringe SC SCH (09:13)
--- NOTE | 2018-08-03 10:35 | CARD ---
APPROVED REPORT Date of service: 08/03/2018 EKG Measurement Heart [id number] <Conclusion> Normal sinus rhythm Normal ECG
--- NOTE | 2018-08-03 16:15 | CP.PCM.PN ---
<Rand Robert - Last Filed: 08/03/18 16:06> Subjective - Date & Time of Evaluation Date of Evaluation: 08/03/18 Time of Evaluation: 10:00 - Subjective Subjective: Rand Robert PGY1 Medicine Progress Note Patient seen and examined at bedside this morning. Offers no new complaints today. No acute events overnight. Denies CP, SOB, fevers, urinary complaints, numbness, tingling and abdominal pain. Objective - Vital Signs/Intake and Output Vital Signs (last 24 hours): Temp Pulse Resp BP Pulse Ox 97.8 F 51 L 20 128/71 96 08/03/18 14:00 08/03/18 14:00 08/03/18 14:00 08/03/18 14:00 08/03/18 14:00 - Medications Medications: Current Medications Acetaminophen (Tylenol 325mg Tab) 650 mg PO Q6H PRN PRN Reason: Headache Last Admin: 07/31/18 20:15 Dose: 650 mg Albuterol/Ipratropium (Duoneb 3 Mg/0.5 Mg (3 Ml) Ud) 3 ml IH Q2H PRN PRN Reason: Shortness of Breath Alprazolam (Xanax) 1 mg PO TID PRN; Protocol PRN Reason: Anxiety Last Admin: 08/03/18 13:54 Dose: 1 mg Aspirin (Ecotrin) 81 mg PO DAILY [facility] Last Admin: 08/03/18 09:13 Dose: 81 mg Cyclobenzaprine HCl (Flexeril) 5 mg PO TID PRN PRN Reason: Muscle spasm Last Admin: 08/03/18 05:46 Dose: 5 mg Dicyclomine HCl (Bentyl) 10 mg PO BID PRN PRN Reason: Irritable bowel symptoms Last Admin: 08/02/18 10:01 Dose: 10 mg Diphenhydramine HCl (Benadryl) 25 mg PO HS PRN PRN Reason: Insomnia Last Admin: 08/01/18 22:03 Dose: 25 mg Diphenhydramine HCl (Benadryl) 25 mg PO HS PRN PRN Reason: Insomnia Enoxaparin Sodium (Lovenox) 40 mg SC DAILY [facility]; Protocol Last Admin: 08/03/18 09:13 Dose: 40 mg Ibuprofen (Motrin Tab) 400 mg PO Q6H PRN PRN Reason: Pain, Mild (1-3) Last Admin: 08/03/18 08:03 Dose: 400 mg Levofloxacin (Levaquin) 500 mg PO DAILY [facility] Last Admin: 08/03/18 09:12 Dose: 500 mg Ondansetron HCl (Zofran Inj) 4 mg IVP Q6H PRN PRN Reason: Nausea/Vomiting Last Admin: 08/02/18 11:20 Dose: 4 mg Oxycodone HCl (Oxycodone Immediate Release Tab) 5 mg PO Q8H PRN PRN Reason: Pain, severe (8-10) Last Admin: 08/03/18 15:18 Dose: 5 mg Pantoprazole Sodium (Protonix Ec Tab) 40 mg PO 0600 [facility] Last Admin: 08/03/18 05:47 Dose: 40 mg Polyethylene Glycol (Miralax) 17 gm PO DAILY PRN PRN Reason: Constipation Pregabalin (Lyrica) 75 mg PO TID [facility] Last Admin: 08/03/18 13:28 Dose: 75 mg Sucralfate (Carafate Oral Susp) 1 gm PO BID [facility] Last Admin: 08/03/18 09:12 Dose: 1 gm - Labs Labs: 08/03/18 07:00 08/03/18 07:00 PT 10.9 SECONDS (9.4-12.5) 07/28/18 11:30 INR 0.95 07/28/18 11:30 APTT 28.1 Seconds (25.1-36.5) 07/28/18 11:30 - Additional Findings Additional findings: - Constitutional Appears: Well, Non-toxic, No Acute Distress - Head Exam Head Exam: ATRAUMATIC, NORMAL INSPECTION, NORMOCEPHALIC - Eye Exam Eye Exam: EOMI, Normal appearance, PERRL - Respiratory Exam Respiratory Exam: Clear to Ausculation Bilateral, NORMAL BREATHING PATTERN. absent: Accessory Muscle Use, Decreased Breath Sounds, Rales, Wheezes, Respiratory Distress - Cardiovascular Exam Cardiovascular Exam: RRR, +S1, +S2. - GI/Abdominal Exam GI & Abdominal Exam: Soft, Normal Bowel Sounds. absent: Guarding, Rigid, Tenderness - Extremities Exam Extremities Exam: absent: Calf Tenderness - Back Exam Back Exam: NORMAL INSPECTION. absent: CVA tenderness (L), CVA tenderness (R) - Neurological Exam Neurological Exam: Alert, Awake, Oriented x3 - Skin Skin Exam: Dry, Intact, Normal Color, Warm Assessment and Plan - Assessment and Plan (Free Text) Assessment: This is a 58 yo female with extensive past medical history that includes SLE, hyperthyroidism, RA, CREST syndrome, gastritis, breast cancer s/p R lumpectomy presenting to the ED with worsening generalized R sided pain x 1-[address] head is negative for acute hemorrhage, CXR showed an opacity in the RL base, atelectasis vs PNA. Brain MRI and Lumbosacral CT show no gross abnormality to explain pts symptoms, detailed below. CT head obtained since pt hit her head on TV overnight. Awaiting PRINCESS placement at this time, will discuss with social media senior associate. Plan: Pleuritic chest pain -consider PNA vs PE less likely as etiology -today is day 7 of levoquin, will stop antibiotics today as patient completed course -Blood culture notes no growth after 5 days -CXR: opacity R lung base, subsegmental atelectasis vs PNA; Possible small R pleural effusion, mildly elevated R hemidiaphragm -Duplex B/L lower extremity shows no evidence of DVT -Wells score 1 correlates with low probability of PE. Patient will need to follow up outpatient with V/Q scan -Pulm on consult -Rib series XR: Rib fractures at L ribs 5,6, 7 -D dimer initially 671 -Duonebs prn R sided weakness -concern for CVA vs TIA -Brain MRI shows no mass effect or edema, no significant atrophy -Head CT w/o contrast: No acute intracranial hemorrhage -will continue with neurochecks -Lumbar Spine CT shows L3-4 and L4-5 facet arthropathy -Neurology on consult Dysphagia -history of hiatal hernia and CREST -cpntinue with aspiration precautions -thin finely chopped dysphagia diet -Continue carofate, dicyclomine Abdominal pain -uncertain etiology -Abd ultrasound shows complex fluid accumulation noted around the spleen, hematoma vs other path. Multiple b/l renal cysts. Fatty infiltration of liver. - No evidence of splenic hematoma, atelectasis vs PNA -s/p ang -Lipase is unremarkable -CT abdomen and pelvis shows no splenic hematoma, no acute findings Hx of SLE, CREST syndrome and RA -takes methotrexate at home Hx anxiety -continue home alprazolam PPX with lovenox and protonix Patient seen and discussed with attending, Dr. Skinner <Valerie Skinner - Last Filed: 08/03/18 16:39> Objective - Vital Signs/Intake and Output Vital Signs (last 24 hours): Temp Pulse Resp BP Pulse Ox 97.8 F 51 L 20 128/71 96 08/03/18 14:00 08/03/18 14:00 08/03/18 14:00 08/03/18 14:00 08/03/18 14:00 - Medications Medications: Current Medications Acetaminophen (Tylenol 325mg Tab) 650 mg PO Q6H PRN PRN Reason: Headache Last Admin: 07/31/18 20:15 Dose: 650 mg Albuterol/Ipratropium (Duoneb 3 Mg/0.5 Mg (3 Ml) Ud) 3 ml IH Q2H PRN PRN Reason: Shortness of Breath Alprazolam (Xanax) 1 mg PO TID PRN; Protocol PRN Reason: Anxiety Last Admin: 08/03/18 13:54 Dose: 1 mg Aspirin (Ecotrin) 81 mg PO DAILY [facility] Last Admin: 08/03/18 09:13 Dose: 81 mg Cyclobenzaprine HCl (Flexeril) 5 mg PO TID PRN PRN Reason: Muscle spasm Last Admin: 08/03/18 05:46 Dose: 5 mg Dicyclomine HCl (Bentyl) 10 mg PO BID PRN PRN Reason: Irritable bowel symptoms Last Admin: 08/02/18 10:01 Dose: 10 mg Diphenhydramine HCl (Benadryl) 25 mg PO HS PRN PRN Reason: Insomnia Last Admin: 08/01/18 22:03 Dose: 25 mg Diphenhydramine HCl (Benadryl) 25 mg PO HS PRN PRN Reason: Insomnia Enoxaparin Sodium (Lovenox) 40 mg SC DAILY [facility]; Protocol Last Admin: 08/03/18 09:13 Dose: 40 mg Ibuprofen (Motrin Tab) 400 mg PO Q6H PRN PRN Reason: Pain, Mild (1-3) Last Admin: 08/03/18 08:03 Dose: 400 mg Ondansetron HCl (Zofran Inj) 4 mg IVP Q6H PRN PRN Reason: Nausea/Vomiting Last Admin: 08/02/18 11:20 Dose: 4 mg Oxycodone HCl (Oxycodone Immediate Release Tab) 5 mg PO Q8H PRN PRN Reason: Pain, severe (8-10) Last Admin: 08/03/18 15:18 Dose: 5 mg Pantoprazole Sodium (Protonix Ec Tab) 40 mg PO 0600 [facility] Last Admin: 08/03/18 05:47 Dose: 40 mg Polyethylene Glycol (Miralax) 17 gm PO DAILY PRN PRN Reason: Constipation Pregabalin (Lyrica) 75 mg PO TID [facility] Last Admin: 08/03/18 13:28 Dose: 75 mg Sucralfate (Carafate Oral Susp) 1 gm PO BID [facility] Last Admin: 08/03/18 09:12 Dose: 1 gm - Labs Labs: 08/03/18 07:00 08/03/18 07:00 PT 10.9 SECONDS (9.4-12.5) 07/28/18 11:30 INR 0.95 07/28/18 11:30 APTT 28.1 Seconds (25.1-36.5) 07/28/18 11:30 Attending/Attestation - Attestation I have personally seen and examined this patient.: Yes I have fully participated in the care of the patient.: Yes I have reviewed all pertinent clinical information, including history, physical exam and plan: Yes Notes (Text): Patient seen and examined by me with resident at 9:50AM on 08/03/18. Case including HPI, physical exam, and assessment and plan discussed with resident. Agree with above with following additions/corrections. Patient is a 58-year-old female past medical history significant for SLE, thyroid nodules, rheumatoid arthritis, CREST syndrome, gastritis, anxiety, and breast cancer status post right lumpectomy that presented to the emergency room with right sided pain and weakness. Patient states she is not feeling that great. States she is having pain from her right shoulder to below her right breast. Pain is constant. Pain medications help. Still with some chronic throat discomfort secondary to CREST. Right foot and leg still with some numbness. Still with dysuria which is chronic for patient. Pleuritic chest pain at baseline per patient. No shortness of breath. No nausea or vomiting. No dizziness. No fevers or chills. Patient is using the incentive spirometer. Physical exam: General: Awake and lying in bed in no acute distress HEENT: Normocephalic, atraumatic. Extraocular muscles intact, pupils equal and reactive, no scleral icterus. Oropharynx is pink and moist. Neck is supple. Cardiovascular: Regular rhythm. Normal S1 and S2. No rubs or gallops appreciated Pulmonary: Normal respiratory effort. No rhonchi, rales, or wheezing appreciated. Gastrointestinal: Soft, nondistended. Positive generalized tenderness more prominent right upper quadrant which has improved. Positive bowel sounds all 4 quadrants. Positive out of proportion voluntary guarding. Musculoskeletal: Moves all extremities. No calf tenderness. No CVA tenderness. No edema appreciated Central nervous system: AAO x3, CN 2-12 grossly intact. Right side upper and lower extremity weakness when compared to the left, however, this may be secondary to patient's effort secondary to pain. Right leg numbness when compared to left Dermatologic: Skin warm and dry. Assessment and plan: Patient is a 58-year-old female past medical history significant for SLE, thyroid nodules, rheumatoid arthritis, CREST syndrome, gastritis, anxiety, and breast cancer status post right lumpectomy that presented to the emergency room with right sided pain and weakness. 1. Chest pain. Pleuritic. Pain reproducible. Now at baseline. D-dimer elevated. S/P 7 days levaquin for possible pneumonia. Continue incentive spirometer. Patient unable to get CTA chest secondary to dye allergy. Unable to get VQ scan secondary to national isotope shortage. Patient is likely low risk for PE. Seen by inorganic chemistry teacher. Patient to get V/Q scan as outpatient. Venous dopplers negative for DVT. Patient not tachycardic or hypoxic. Troponin within normal limits. Chest x-ray per radiologist showed opacity at right base, possibly some segmental atelectasis versus pneumonia, possible small right pleural effusion, mildly elevated right hemidiaphragm. Chest CT per radiologist showed no evidence of splenic hematoma, bibasilar subsegmental infiltrates with an air bronchograms right greater than left, atelectasis versus developing pneumonia. Rib x-rays per radiologist showed displaced fractures are seen of the left fifth, sixth, and seventh ribs, there is some callus formation around the fractures, the fractures are subacute or chronic. 2. Right sided weakness and pain. Also with right foot numbness. CVA ruled out. Continue aspirin. Neurology following, recommendations appreciated. Patient requested second opinion. Neurology Dr. Whitaker consulted, recommendations a ppreciated. Continue 75mg TID and oxycodone decreased per neurology. Pending right breast ultrasound. Head CT per radiologist showed no acute intracranial abnormality. MRI brain per radiologist showed unremarkable noncontrast enhanced MRI of the brain. Lumbar spine CT per radiologist showed moderate facet arthropathy at L3-L4 and L4-L5, no acute findings. Continue physical therapy. Physical therapy recommends subacute rehabilitation. Pending PRINCESS placement. 3. Headache. s/p hitting head on TV. Resolved today. Repeat head CT per radiologist showed no acute intracranial findings. 4. Dysphagia. Speech and swallow following, recommendations appreciated. Continue with dysphagia diet. Continue with aspiration precautions. 5. Abdominal pain. Pain at baseline. Status post cholecystectomy and appe ndectomy. History of gastritis. Continue Carafate and dicyclomine. Continue Protonix. Continue Zofran as needed. Abdominal ultrasound per radiologist showed complex appearing fluid collection adjacent to the spleen, rule out hematoma versus other pathology; multiple bilateral renal cysts; small nonobstructing calculus that was seen lower pole collecting system left kidney on prior CT scan not appreciated on this study; suspect fatty hepatic infiltration. CT abdomen and pelvis shows no splenic hematoma, no acute findings. 6. UTI. Patient symptomatic. Urine culture positive for Escherichia coli and staph epidermidis. S/P 7 days of levaquin treatment. 7. History of breast cancer. Patient states that she was recently diagnosed with a new lump on her left breast. Patient is following up outpatient for this. 8. SLE. Crest syndrome. Rheumatoid arthritis. Patient is on methotrexate at home. Pain may be secondary to lupus. Continue to monitor for now. 9. Hypokalemia. Resolved. Continue to monitor. 10. Anxiety. Continue alprazolam 1 mg TID as needed. 11. GI/DVT prophylaxis. Protonix/Lovenox 12. Patient is a full code Case was discussed in detail with the patient regarding current diagnosis and treatment plan. All questions answered.
[2018-08-04] MEDS: Pantoprazole 40 mg EC Tab PO SCH (05:15)
[2018-08-04 07:08] LABS: BASO # 0.03 K/mm3 (0.0-2.0); BASO % 0.4 % (0.0-3.0); EOS % 13.3 % (1.5-5.0); GRAN # 3.58 (1.4-6.5); GRAN % 45.9 % (50.0-68.0); HEMOGLOBIN 13.2 g/dL (12.0-16.0); LYMPH # 2.3 (1.2-3.4); LYMPH % 29.1 % (22.0-35.0); MEAN CORPUSCULAR HEMOGLOBIN 28.5 pg (25.0-35.0); MEAN CORPUSCULAR HGB CONC 32.8 g/dl (31.0-37.0); MEAN PLATELET VOLUME 8.8 fl (7.0-11.0); MONO # 0.9 (0.1-0.6); MONO % 11.3 % (1.0-6.0); RBC 4.63 10^6/uL (3.5-6.1); RED CELL DISTRIBUTION WIDTH 13.8 % (11.5-14.5); WHITE BLOOD COUNT 7.8 10^3/uL (4.5-11.0)
[2018-08-04 07:24] LABS: CALCIUM 9.4 mg/dL (8.4-10.5)
[2018-08-04] MEDS: Sucralfate 1 gm/10 ml Oral Susp UD PO SCH ×2 (09:54→17:17)
[2018-08-04] MEDS: Enoxaparin 40 mg Syringe SC SCH (09:54)
--- NOTE | 2018-08-04 13:27 | CP.PCM.PN ---
<Tre Watkins - Last Filed: 08/04/18 14:24> Subjective - Date & Time of Evaluation Date of Evaluation: 08/04/18 Time of Evaluation: 07:15 - Subjective Subjective: Resident Tre Watkins DO PGY1 Hospitalist Progress Note for: Dr. Allen Pt was seen and examined this morning at bedside. She continues to complain of R sided headache, R arm and leg pain with leg weakness. She admits to some R inguinal pain this AM. She states that it happened all of a sudden last night when she was attempting to stand up and noticed a pinch in the area. She denies having any SOB, cough, fevers, chills, dysuria, hematuria. Of note RN endorsed that per the pt, she fell yesterday, but no code star as the pt did not notify any staff and got up herself without assistance. Upon interview pt states that she did not have a fall last night but did fall several days ago, again with no notification of staff. Pt reported last that as she was getting out of bed she hit her head against the TV unit that was set above her head. Stat CT of head did not show any acute intracranial findings. Objective - Vital Signs/Intake and Output Vital Signs (last 24 hours): Temp Pulse Resp BP Pulse Ox 97.8 F 81 20 105/70 97 08/04/18 06:00 08/04/18 06:00 08/04/18 06:00 08/04/18 06:00 08/04/18 06:00 Intake and Output: 08/04/18 08/04/18 06:59 18:59 Intake Total 280 Balance 280 - Medications Medications: Current Medications Acetaminophen (Tylenol 325mg Tab) 650 mg PO Q6H PRN PRN Reason: Headache Last Admin: 07/31/18 20:15 Dose: 650 mg Albuterol/Ipratropium (Duoneb 3 Mg/0.5 Mg (3 Ml) Ud) 3 ml IH Q2H PRN PRN Reason: Shortness of Breath Alprazolam (Xanax) 1 mg PO TID PRN; Protocol PRN Reason: Anxiety Last Admin: 08/04/18 05:13 Dose: 1 mg Aspirin (Ecotrin) 81 mg PO DAILY [facility] Last Admin: 11/12/18 09:54 Dose: 81 mg Cyclobenzaprine HCl (Flexeril) 5 mg PO TID PRN PRN Reason: Muscle spasm Last Admin: 08/03/18 22:42 Dose: 5 mg Dicyclomine HCl (Bentyl) 10 mg PO BID PRN PRN Reason: Irritable bowel symptoms Last Admin: 08/02/18 10:01 Dose: 10 mg Diphenhydramine HCl (Benadryl) 25 mg PO HS PRN PRN Reason: Insomnia Last Admin: 08/01/18 22:03 Dose: 25 mg Diphenhydramine HCl (Benadryl) 25 mg PO HS PRN PRN Reason: Insomnia Enoxaparin Sodium (Lovenox) 40 mg SC DAILY [facility]; Protocol Last Admin: 08/04/18 09:54 Dose: 40 mg Ibuprofen (Motrin Tab) 400 mg PO Q6H PRN PRN Reason: Pain, Mild (1-3) Last Admin: 08/04/18 05:14 Dose: 400 mg Ondansetron HCl (Zofran Inj) 4 mg IVP Q6H PRN PRN Reason: Nausea/Vomiting Last Admin: 08/02/18 11:20 Dose: 4 mg Oxycodone HCl (Oxycodone Immediate Release Tab) 5 mg PO Q8H PRN PRN Reason: Pain, severe (8-10) Last Admin: 08/03/18 22:28 Dose: 5 mg Pantoprazole Sodium (Protonix Ec Tab) 40 mg PO 0600 [facility] Last Admin: 08/04/18 05:15 Dose: 40 mg Polyethylene Glycol (Miralax) 17 gm PO DAILY PRN PRN Reason: Constipation Pregabalin (Lyrica) 75 mg PO TID [facility] Last Admin: 08/04/18 09:53 Dose: 75 mg Sucralfate (Carafate Oral Susp) 1 gm PO BID [facility] Last Admin: 08/04/18 09:54 Dose: 1 gm - Labs Labs: 08/04/18 06:20 08/04/18 06:20 PT 10.9 SECONDS (9.4-12.5) 07/28/18 11:30 INR 0.95 07/28/18 11:30 APTT 28.1 Seconds (25.1-36.5) 07/28/18 11:30 - Constitutional Appears: Well, Non-toxic, No Acute Distress - Head Exam Head Exam: ATRAUMATIC, NORMAL INSPECTION, NORMOCEPHALIC - Eye Exam Eye Exam: EOMI, Normal appearance, PERRL - Respiratory Exam Respiratory Exam: Clear to Ausculation Bilateral, NORMAL BREATHING PATTERN. absent: Accessory Muscle Use, Chest Wall Tenderness, Decreased Breath Sounds, Rales, Rhonchi, Wheezes, Respiratory Distress, Stridor - Cardiovascular Exam Cardiovascular Exam: RRR, +S1, +S2. absent: Gallop, Rubs - GI/Abdominal Exam GI & Abdominal Exam: Soft, Normal Bowel Sounds. absent: Firm, Guarding, Rigid, Tenderness - Extremities Exam Extremities Exam: Full ROM, Normal Capillary Refill, Normal Inspection. absent: Calf Tenderness, Joint Swelling, Pedal Edema, Tenderness (There is no tenderness to palpation of the R hip. ROM of R hip is preserved. There is no masses palpated at inguinal canal either at rest or with coughing.) - Neurological Exam Neurological Exam: Alert, Awake, Oriented x3 Neuro motor strength exam: Left Upper Extremity: 5, Right Upper Extremity: 4 (Limited by pain), Left Lower Extremity: 5, Right Lower Extremity: 4 (Limited by pain) Additional comments: Motor and sensory grossly intact, able to move all extremities. - Psychiatric Exam Psychiatric exam: Normal Affect, Normal Mood - Skin Skin Exam: Dry, Intact, Normal Color, Warm Assessment and Plan - Assessment and Plan (Free Text) Assessment: Pt is a 58 yo female with extensive past medical history that includes SLE, hyperthyroidism, RA, CREST syndrome, gastritis, breast cancer s/p R lumpectomy presenting to the ED with worsening generalized R sided pain x 1-[address] head is negative for acute hemorrhage, CXR showed an opacity in the RL base, atelectasis vs PNA. Brain MRI and Lumbosacral CT show no gross abnormality to explain pts symptoms, detailed below. Pt states that she is having R inguinal pain, no evidence of hernia or mass felt on exam even with cough. Plan: 1. Pleuritic chest pain, Decreased breath sounds--r/o PE vs PNA: - D dimer: 671 - CXR: opacity R lung base, subsegmental atelectasis vs PNA; Possible small R pleural effusion, mildly elevated R hemidiaphragm - EKG: NSR @ 89 bpm, somatic tremors - Rib series XR: Rib fractures at L ribs 5,6, 7 - Emir prn - Pulmonology recs appreciated : Wells score is 1 at best = low probability of PE, f/u V/Q scan outpt - Blood culture - no growth - Completed levofloxacin course 2. R sided numbness/weakness--r/o CVA - Neurochecks qshift - PT on board : PRINCESS upon d/c - Duplex b/l LE - No evidence of DVT - Head CT w/o contrast: No acute intracranial hemorrhage - Brain MRI: No mass effect or edema, no significant atrophy - LS CT = L3-4 and L4-5 facet arthropathy - Neurology consulted: MRI of brain w/o contrast, CT of Lumbosacral region, Cont ASA - Likely complex regional pain syndrome 3. R inguinal/groin pain: - Pts hip is non-tender - Inguinal canal shows no masses at rest or with coughing - Normal ROM of R hip - Pt is on pain medication, will continue to monitor. 4. Headache s/p hitting head: Resolved - No exacerbation of numbness, tingling, weakness or pain. - CT head ordered, f/u official read. - Will continue to monitor pt for any new neuro developments. 5. RUQ abd pain s/p ang - Abd u/s complex fluid accumulation noted around the spleen, hematoma vs other path. Multiple b/l renal cysts. Fatty infiltration of liver. - Lipase wnl - No evidence of splenic hematoma, atelectasis vs PNA 6. Dysphagia, hx hiatal hernia, gastritis and hx of CREST - Aspiration precautions - Puree, thin liquid diet - Speech and swallow eval - Thin liquids and dysphagia level 2 diet. - Continue home dicyclomine, carofate - Protonix 7. UTI - UA: +Bacteria, LE, small blood - Completed course of Levofloxacin - Urine culture pending 8. Hx anxiety -continue home alprazolam 1mg TID 9. Hx of SLE, CREST syndrome and RA - Pt is on methotrexate at home - Pain may be 2/2 lupus 10. PPx, Diet, Disposition -DVT: lovenox -GI: protonix -Diet: puree, thin liquid Dispo: PRINCESS per PT Case discussed with Dr. Shawna Watkins DO, PGY-1 <Mario Allen - Last Filed: 08/04/18 17:46> Objective - Vital Signs/Intake and Output Vital Signs (last 24 hours): Temp Pulse Resp BP Pulse Ox 97.8 F 81 20 105/70 97 08/04/18 06:00 08/04/18 06:00 08/04/18 06:00 08/04/18 06:00 08/04/18 06:00 Intake and Output: 08/04/18 08/04/18 06:59 18:59 Intake Total 280 Balance 280 - Medications Medications: Current Medications Acetaminophen (Tylenol 325mg Tab) 650 mg PO Q6H PRN PRN Reason: Headache Last Admin: 07/31/18 20:15 Dose: 650 mg Albuterol/Ipratropium (Duoneb 3 Mg/0.5 Mg (3 Ml) Ud) 3 ml IH Q2H PRN PRN Reason: Shortness of Breath Alprazolam (Xanax) 1 mg PO TID PRN; Protocol PRN Reason: Anxiety Last Admin: 08/04/18 05:13 Dose: 1 mg Aspirin (Ecotrin) 81 mg PO DAILY [facility] Last Admin: 08/04/18 09:54 Dose: 81 mg Cyclobenzaprine HCl (Flexeril) 5 mg PO TID PRN PRN Reason: Muscle spasm Last Admin: 08/03/18 22:42 Dose: 5 mg Dicyclomine HCl (Bentyl) 10 mg PO BID PRN PRN Reason: Irritable bowel symptoms Last Admin: 08/02/18 10:01 Dose: 10 mg Diphenhydramine HCl (Benadryl) 25 mg PO HS PRN PRN Reason: Insomnia Last Admin: 08/01/18 22:03 Dose: 25 mg Diphenhydramine HCl (Benadryl) 25 mg PO HS PRN PRN Reason: Insomnia Docusate Sodium (Colace) 100 mg PO TID [facility] Last Admin: 08/04/18 17:18 Dose: 100 mg Enoxaparin Sodium (Lovenox) 40 mg SC DAILY [facility]; Protocol Last Admin: 08/04/18 09:54 Dose: 40 mg Ibuprofen (Motrin Tab) 400 mg PO Q6H PRN PRN Reason: Pain, Mild (1-3) Last Admin: 08/04/18 05:14 Dose: 400 mg Ondansetron HCl (Zofran Inj) 4 mg IVP Q6H PRN PRN Reason: Nausea/Vomiting Last Admin: 08/02/18 11:20 Dose: 4 mg Oxycodone HCl (Oxycodone Immediate Release Tab) 5 mg PO BID PRN PRN Reason: Pain, severe (8-10) Pantoprazole Sodium (Protonix Ec Tab) 40 mg PO 0600 [facility] Last Admin: 08/04/18 05:15 Dose: 40 mg Polyethylene Glycol (Miralax) 17 gm PO BID [facility] Last Admin: 08/04/18 17:18 Dose: 17 gm Pregabalin (Lyrica) 75 mg PO TID [facility] Last Admin: 08/04/18 17:17 Dose: 75 mg Sucralfate (Carafate Oral Susp) 1 gm PO BID [facility] Last Admin: 08/04/18 17:17 Dose: 1 gm - Labs Labs: 08/04/18 06:20 08/04/18 06:20 PT 10.9 SECONDS (9.4-12.5) 07/28/18 11:30 INR 0.95 07/28/18 11:30 APTT 28.1 Seconds (25.1-36.5) 07/28/18 11:30 Attending/Attestation - Attestation I have personally seen and examined this patient.: Yes I have fully participated in the care of the patient.: Yes I have reviewed all pertinent clinical information, including history, physical exam and plan: Yes Notes (Text): ? complex regional pain syndrome. So for no radiologic explanation for her symptoms. Not sure if pt is seeking ssecondary gains. Neuro on board, c/w joeypio Will attempt to decrease her oxycodone to her home dose Pt has been evaluated by PT, SW on board for PRINCESS 08/04/18 17:39
--- NOTE | 2018-08-04 16:34 | US ---
Date of service: 08/04/2018 PROCEDURE: Ultrasound right breast HISTORY: Personal history of breast cancer. Clinically presenting with weakness and right breast pain. COMPARISON: 03/18/2013 ultrasound right breast TECHNIQUE: Standard protocol for this study/examination. FINDINGS: Cyst(s): None Breast mass: None Dilated ducts: None Parenchymal distortion: None Skin thickening or subcutaneous abnormalities: None IMPRESSION: BIRADS 1 (negative)
[2018-08-04] MEDS: POLYETHYLENE GLYCOL 3350 17 GM/Dose PACKET PO SCH (17:18)
[2018-08-04] MEDS: oxyCODONE 5 mg Immediate Release Tab PO PRN (22:15)
[2018-08-05] MEDS: Pantoprazole 40 mg EC Tab PO SCH (06:31)
[2018-08-05 06:57] LABS: BASO # 0.02 K/mm3 (0.0-2.0); BASO % 0.3 % (0.0-3.0); EOS # 0.9 (0.0-0.7); EOS % 11.2 % (1.5-5.0); GRAN # 3.25 (1.4-6.5); GRAN % 41.6 % (50.0-68.0); HEMOGLOBIN 12.8 g/dL (12.0-16.0); LYMPH % 37.9 % (22.0-35.0); MEAN CELL VOLUME 86.2 fl (80.0-105.0); MEAN CORPUSCULAR HEMOGLOBIN 27.9 pg (25.0-35.0); MEAN CORPUSCULAR HGB CONC 32.4 g/dl (31.0-37.0); MEAN PLATELET VOLUME 8.9 fl (7.0-11.0); MONO # 0.7 (0.1-0.6); RBC 4.58 10^6/uL (3.5-6.1); RED CELL DISTRIBUTION WIDTH 13.8 % (11.5-14.5); WHITE BLOOD COUNT 7.8 10^3/uL (4.5-11.0)
[2018-08-05 07:28] LABS: ALT/SGPT 19 U/L (7-56); AST/SGOT 38 U/L (14-36); BLOOD UREA NITROGEN 18 mg/dL (7-21); CALCIUM 9.2 mg/dL (8.4-10.5); GFR NON-AFRICAN AMERICAN 51
[2018-08-05] MEDS: Sucralfate 1 gm/10 ml Oral Susp UD PO SCH ×2 (10:40→18:25)
[2018-08-05] MEDS: Enoxaparin 40 mg Syringe SC SCH (10:41)
[2018-08-05] MEDS: POLYETHYLENE GLYCOL 3350 17 GM/Dose PACKET PO SCH ×2 (10:47→18:25)
[2018-08-05] MEDS: oxyCODONE 5 mg Immediate Release Tab PO PRN ×2 (11:02→21:03)
[2018-08-05 15:23] VITALS: RESP 18
--- NOTE | 2018-08-05 18:28 | CP.PCM.PN ---
<Tre Watkins - Last Filed: 08/05/18 18:31> Subjective - Date & Time of Evaluation Date of Evaluation: 08/05/18 Time of Evaluation: 06:30 - Subjective Subjective: Resident Tre Watkins DO PGY1 Hospitalist Progress Note for: Dr. Allen Pt was seen and examined this morning at bedside. She continues to complain of R sided headache, R arm and leg pain with leg weakness. She continues to admit to R inguinal pain this AM. She denies having any SOB, cough, fevers, chills, dysuria, hematuria, saddle anesthesia, bowel or bladder incontinence. Pt is back to home dose of pain medications. Objective - Vital Signs/Intake and Output Vital Signs (last 24 hours): Temp Pulse Resp BP Pulse Ox 97.8 F 105 H 18 122/78 97 08/05/18 14:00 08/05/18 14:00 08/05/18 14:00 08/05/18 14:00 08/05/18 14:00 Intake and Output: 08/05/18 08/05/18 06:59 18:59 Intake Total 120 Balance 120 - Medications Medications: Current Medications Acetaminophen (Tylenol 325mg Tab) 650 mg PO Q6H PRN PRN Reason: Headache Last Admin: 07/31/18 20:15 Dose: 650 mg Albuterol/Ipratropium (Duoneb 3 Mg/0.5 Mg (3 Ml) Ud) 3 ml IH Q2H PRN PRN Reason: Shortness of Breath Alprazolam (Xanax) 1 mg PO TID PRN; Protocol PRN Reason: Anxiety Last Admin: 08/05/18 11:04 Dose: 1 mg Aspirin (Ecotrin) 81 mg PO DAILY [facility] Last Admin: 08/05/18 10:40 Dose: 81 mg Cyclobenzaprine HCl (Flexeril) 5 mg PO TID PRN PRN Reason: Muscle spasm Last Admin: 08/05/18 11:04 Dose: 5 mg Dicyclomine HCl (Bentyl) 10 mg PO BID PRN PRN Reason: Irritable bowel symptoms Last Admin: 08/02/18 10:01 Dose: 10 mg Diphenhydramine HCl (Benadryl) 25 mg PO HS PRN PRN Reason: Insomnia Last Admin: 08/01/18 22:03 Dose: 25 mg Diphenhydramine HCl (Benadryl) 25 mg PO HS PRN PRN Reason: Insomnia Docusate Sodium (Colace) 100 mg PO TID [facility] Last Admin: 08/05/18 15:06 Dose: 100 mg Enoxaparin Sodium (Lovenox) 40 mg SC DAILY [facility]; Protocol Last Admin: 08/05/18 10:41 Dose: 40 mg Ibuprofen (Motrin Tab) 400 mg PO Q6H PRN PRN Reason: Pain, Mild (1-3) Last Admin: 08/04/18 05:14 Dose: 400 mg Ondansetron HCl (Zofran Inj) 4 mg IVP Q6H PRN PRN Reason: Nausea/Vomiting Last Admin: 08/02/18 11:20 Dose: 4 mg Oxycodone HCl (Oxycodone Immediate Release Tab) 5 mg PO BID PRN PRN Reason: Pain, severe (8-10) Last Admin: 08/05/18 11:02 Dose: 5 mg Pantoprazole Sodium (Protonix Ec Tab) 40 mg PO 0600 [facility] Last Admin: 08/05/18 06:31 Dose: 40 mg Polyethylene Glycol (Miralax) 17 gm PO BID [facility] Last Admin: 08/05/18 10:47 Dose: 17 gm Pregabalin (Lyrica) 75 mg PO TID [facility] Last Admin: 08/05/18 15:06 Dose: 75 mg Sucralfate (Carafate Oral Susp) 1 gm PO BID [facility] Last Admin: 08/05/18 10:40 Dose: 1 gm - Labs Labs: 08/05/18 06:30 08/05/18 06:30 PT 10.9 SECONDS (9.4-12.5) 07/28/18 11:30 INR 0.95 07/28/18 11:30 APTT 28.1 Seconds (25.1-36.5) 07/28/18 11:30 - Constitutional Appears: Well, Non-toxic, No Acute Distress - Head Exam Head Exam: ATRAUMATIC, NORMAL INSPECTION, NORMOCEPHALIC - Eye Exam Eye Exam: EOMI, Normal appearance, PERRL - Respiratory Exam Respiratory Exam: Clear to Ausculation Bilateral, NORMAL BREATHING PATTERN. absent: Accessory Muscle Use, Decreased Breath Sounds, Rales, Rhonchi, Wheezes, Respiratory Distress, Stridor - Cardiovascular Exam Cardiovascular Exam: RRR, +S1, +S2. absent: Gallop, Rubs - GI/Abdominal Exam GI & Abdominal Exam: Soft, Normal Bowel Sounds. absent: Tenderness - Extremities Exam Extremities Exam: Full ROM, Normal Capillary Refill, Normal Inspection, Tenderness (There is no tenderness to palpation of the R hip. ROM of R hip is preserved. There is no masses palpated at inguinal canal either at rest or with coughing.). absent: Calf Tenderness, Joint Swelling - Neurological Exam Neurological Exam: Alert, Awake, Oriented x3 Neuro motor strength exam: Left Upper Extremity: 5, Right Upper Extremity: 4 (Limited due to pain), Left Lower Extremity: 5, Right Lower Extremity: 4 (Limted due to pain) - Psychiatric Exam Psychiatric exam: Anxious - Skin Skin Exam: Dry, Intact, Normal Color, Warm Assessment and Plan - Assessment and Plan (Free Text) Assessment: Pt is a 58 yo female with extensive past medical history that includes SLE, hyperthyroidism, RA, CREST syndrome, gastritis, breast cancer s/p R lumpectomy presenting to the ED with worsening generalized R sided pain x 1-[address] head is negative for acute hemorrhage, CXR showed an opacity in the RL base, atelectasis vs PNA. Brain MRI and Lumbosacral CT show no gross abnormality to explain pts symptoms, detailed below. Pt states that she is having R inguinal pain, no evidence of hernia or mass felt on exam even with cough. Plan: 1. Pleuritic chest pain, Decreased breath sounds--r/o PE vs PNA: - D dimer: 671 - CXR: opacity R lung base, subsegmental atelectasis vs PNA; Possible small R pleural effusion, mildly elevated R hemidiaphragm - EKG: NSR @ 89 bpm, somatic tremors - Rib series XR: Rib fractures at L ribs 5,6, 7 - Duonebs prn - Pulmonology recs appreciated : Wells score is 1 at best = low probability of PE, f/u V/Q scan outpt - Blood culture - no growth - Completed levofloxacin course 2. R sided numbness/weakness--r/o CVA - Neurochecks qshift - PT on board : [facility] upon d/c - Duplex b/l LE - No evidence of DVT - Head CT w/o contrast: No acute intracranial hemorrhage - Brain MRI: No mass effect or edema, no significant atrophy - LS CT = L3-4 and L4-5 facet arthropathy - Neurology consulted: MRI of brain w/o contrast, CT of Lumbosacral region, Cont ASA - Likely complex regional pain syndrome - Continue with Lyrica. 3. R inguinal/groin pain: - Pts hip is non-tender - Inguinal canal shows no masses at rest or with coughing - Normal ROM of R hip - Pt is on pain medication, will continue to monitor. 4. Headache s/p hitting head: Resolved - No exacerbation of numbness, tingling, weakness or pain. - CT head ordered, f/u official read. - Will continue to monitor pt for any new neuro developments. 5. RUQ abd pain s/p ang - Abd u/s complex fluid accumulation noted around the spleen, hematoma vs other path. Multiple b/l renal cysts. Fatty infiltration of liver. - Lipase wnl - No evidence of splenic hematoma, atelectasis vs PNA 6. Dysphagia, hx hiatal hernia, gastritis and hx of CREST - Aspiration precautions - Puree, thin liquid diet - Speech and swallow eval - Thin liquids and dysphagia level 2 diet. - Continue home dicyclomine, carofate - Protonix 7. UTI - UA: +Bacteria, LE, small blood - Completed course of Levofloxacin - Urine culture pending 8. Hx anxiety -continue home alprazolam 1mg TID 9. Hx of SLE, CREST syndrome and RA - Pt is on methotrexate at home - Pain may be 2/2 lupus 10. PPx, Diet, Disposition -DVT: lovenox -GI: protonix -Diet: puree, thin liquid Dispo: Accepted to [facility] for tomorrow, will d/c in AM. Case discussed with Dr. Shawna Watkins DO, PGY-1 <Mario Allen - Last Filed: 08/05/18 18:43> Objective - Vital Signs/Intake and Output Vital Signs (last 24 hours): Temp Pulse Resp BP Pulse Ox 97.8 F 105 H 18 122/78 97 08/05/18 14:00 08/05/18 14:00 08/05/18 14:00 08/05/18 14:00 08/05/18 14:00 Intake and Output: 08/05/18 08/05/18 06:59 18:59 Intake Total 120 Balance 120 - Medications Medications: Current Medications Acetaminophen (Tylenol 325mg Tab) 650 mg PO Q6H PRN PRN Reason: Headache Last Admin: 07/31/18 20:15 Dose: 650 mg Albuterol/Ipratropium (Duoneb 3 Mg/0.5 Mg (3 Ml) Ud) 3 ml IH Q2H PRN PRN Reason: Shortness of Breath Alprazolam (Xanax) 1 mg PO TID PRN; Protocol PRN Reason: Anxiety Last Admin: 08/05/18 11:04 Dose: 1 mg Aspirin (Ecotrin) 81 mg PO DAILY [facility] Last Admin: 08/05/18 10:40 Dose: 81 mg Cyclobenzaprine HCl (Flexeril) 5 mg PO TID PRN PRN Reason: Muscle spasm Last Admin: 08/05/18 11:04 Dose: 5 mg Dicyclomine HCl (Bentyl) 10 mg PO BID PRN PRN Reason: Irritable bowel symptoms Last Admin: 08/02/18 10:01 Dose: 10 mg Diphenhydramine HCl (Benadryl) 25 mg PO HS PRN PRN Reason: Insomnia Last Admin: 08/01/18 22:03 Dose: 25 mg Diphenhydramine HCl (Benadryl) 25 mg PO HS PRN PRN Reason: Insomnia Docusate Sodium (Colace) 100 mg PO TID [facility] Last Admin: 08/05/18 18:35 Dose: 100 mg Enoxaparin Sodium (Lovenox) 40 mg SC DAILY [facility]; Protocol Last Admin: 08/05/18 10:41 Dose: 40 mg Ibuprofen (Motrin Tab) 400 mg PO Q6H PRN PRN Reason: Pain, Mild (1-3) Last Admin: 08/04/18 05:14 Dose: 400 mg Ondansetron HCl (Zofran Inj) 4 mg IVP Q6H PRN PRN Reason: Nausea/Vomiting Last Admin: 08/02/18 11:20 Dose: 4 mg Oxycodone HCl (Oxycodone Immediate Release Tab) 5 mg PO BID PRN PRN Reason: Pain, severe (8-10) Last Admin: 11/13/18 11:02 Dose: 5 mg Pantoprazole Sodium (Protonix Ec Tab) 40 mg PO 0600 [facility] Last Admin: 08/05/18 06:31 Dose: 40 mg Polyethylene Glycol (Miralax) 17 gm PO BID [facility] Last Admin: 08/05/18 18:25 Dose: 17 gm Pregabalin (Lyrica) 75 mg PO TID [facility] Last Admin: 08/05/18 18:35 Dose: 75 mg Sucralfate (Carafate Oral Susp) 1 gm PO BID [facility] Last Admin: 08/05/18 18:25 Dose: 1 gm - Labs Labs: 08/05/18 06:30 08/05/18 06:30 PT 10.9 SECONDS (9.4-12.5) 07/28/18 11:30 INR 0.95 07/28/18 11:30 APTT 28.1 Seconds (25.1-36.5) 07/28/18 11:30 Attending/Attestation - Attestation I have personally seen and examined this patient.: Yes I have fully participated in the care of the patient.: Yes I have reviewed all pertinent clinical information, including history, physical exam and plan: Yes Notes (Text): Pt has diffuse body pain. ? Complex regional pain syndrome vs pain seeking. Patient has a lot of out of proportion voluntary guarding. Pt has been evaluated by neuro and was started on lyrica. oxycodone has been weaned down to home dose. Pt has been accepted at [facility] for Saturday. DC to [facility] tomorrow. 08/05/18 18:42
[2018-08-06] MEDS: Pantoprazole 40 mg EC Tab PO SCH (06:21)
[2018-08-06 07:58] LABS: BASO # 0.02 K/mm3 (0.0-2.0); BASO % 0.3 % (0.0-3.0); EOS # 0.8 (0.0-0.7); EOS % 10.5 % (1.5-5.0); GRAN # 3.73 (1.4-6.5); HEMOGLOBIN 12.6 g/dL (12.0-16.0); LYMPH # 2.3 (1.2-3.4); LYMPH % 30.2 % (22.0-35.0); MEAN CELL VOLUME 86.9 fl (80.0-105.0); MEAN CORPUSCULAR HEMOGLOBIN 28.5 pg (25.0-35.0); MEAN CORPUSCULAR HGB CONC 32.8 g/dl (31.0-37.0); MEAN PLATELET VOLUME 8.9 fl (7.0-11.0); MONO # 0.8 (0.1-0.6); RBC 4.42 10^6/uL (3.5-6.1); WHITE BLOOD COUNT 7.6 10^3/uL (4.5-11.0)
[2018-08-06 08:16] LABS: ALB/GLOB RATIO 0.9 (1.1-1.8); ALBUMIN 3.7 g/dL (3.0-4.8); ALT/SGPT 18 U/L (7-56); AST/SGOT 30 U/L (14-36); BLOOD UREA NITROGEN 21 mg/dL (7-21); GFR NON-AFRICAN AMERICAN 51
[2018-08-06] MEDS: Sucralfate 1 gm/10 ml Oral Susp UD PO SCH ×2 (09:00→18:00)
[2018-08-06] MEDS: POLYETHYLENE GLYCOL 3350 17 GM/Dose PACKET PO SCH ×2 (09:00→17:52)
[2018-08-06] MEDS: Enoxaparin 40 mg Syringe SC SCH (09:00)
[2018-08-06] MEDS: oxyCODONE 5 mg Immediate Release Tab PO PRN (12:01)
--- NOTE | 2018-08-06 18:05 | CP.PCM.DIS ---
Provider - Provider Date of Admission: 07/29/18 09:15 Attending physician: Valerie Skinner DO Primary care physician: Sonia Dozier DO Time Spent in preparation of Discharge (in minutes): 45 Diagnosis - Discharge Diagnosis (1) Right-sided abdominal pain of unknown cause Status: Acute (2) Right sided facial pain Status: Acute (3) Right-sided back pain Status: Acute (4) Chest pain Status: Acute (5) UTI (urinary tract infection) Status: Acute Hospital Course - Lab Results Lab Results: Micro Results 07/28/18 14:26 Blood Blood Culture - Final NO GROWTH AFTER 5 DAYS 07/28/18 14:26 Blood Gram Stain - Final TEST NOT PERFORMED 07/28/18 14:00 Blood Blood Culture - Final NO GROWTH AFTER 5 DAYS 07/28/18 14:00 Blood Gram Stain - Final TEST NOT PERFORMED 07/30/18 18:11 Urine Urine Culture - Final No Growth (<1,000 CFU/ML) 07/28/18 11:30 Urine,Clean Catch Urine Culture - Final Escherichia Coli Staphylococcus Epidermidis Most Recent Lab Values WBC 7.6 10^3/uL (4.5-11.0) 08/06/18 07:45 RBC 4.42 10^6/uL (3.5-6.1) 08/06/18 07:45 Hgb 12.6 g/dL (12.0-16.0) 08/06/18 07:45 Hct 38.4 % (36.0-48.0) 08/06/18 07:45 MCV 86.9 fl (80.0-105.0) 08/06/18 07:45 MCH 28.5 pg (25.0-35.0) 08/06/18 07:45 MCHC 32.8 g/dl (31.0-37.0) 08/06/18 07:45 RDW 14.0 % (11.5-14.5) 08/06/18 07:45 Plt Count 337 10^3/uL (120.0-450.0) 08/06/18 07:45 MPV 8.9 fl (7.0-11.0) 08/06/18 07:45 Gran % 49.0 % (50.0-68.0) L 08/06/18 07:45 Lymph % (Auto) 30.2 % (22.0-35.0) 08/06/18 07:45 Hendry % (Auto) 10.0 % (1.0-6.0) H 08/06/18 07:45 Eos % (Auto) 10.5 % (1.5-5.0) H 08/06/18 07:45 Baso % (Auto) 0.3 % (0.0-3.0) 08/06/18 07:45 Gran # 3.73 (1.4-6.5) 08/06/18 07:45 Lymph # (Auto) 2.3 (1.2-3.4) 08/06/18 07:45 Hendry # (Auto) 0.8 (0.1-0.6) H 08/06/18 07:45 Eos # (Auto) 0.8 (0.0-0.7) H 08/06/18 07:45 Baso # (Auto) 0.02 K/mm3 (0.0-2.0) 08/06/18 07:45 PT 10.9 SECONDS (9.4-12.5) 07/28/18 11:30 INR 0.95 07/28/18 11:30 APTT 28.1 Seconds (25.1-36.5) 07/28/18 11:30 D-Dimer, Quantitative 671 ng/mlDDU (0-243) H 07/28/18 11:30 Sodium 137 mmol/L (132-148) 08/06/18 07:45 Potassium 4.0 mmol/L (3.6-5.0) 08/06/18 07:45 Chloride 98 mmol/L (98-107) 08/06/18 07:45 Carbon Dioxide 30 mmol/L (21-33) 08/06/18 07:45 Anion Gap 12 (10-20) 08/06/18 07:45 BUN 21 mg/dL (7-21) 08/06/18 07:45 Creatinine 1.1 mg/dl (0.7-1.2) 08/06/18 07:45 Est GFR ( Amer) > 60 08/06/18 07:45 Est GFR (Non-Af Amer) 51 08/06/18 07:45 Random Glucose 110 mg/dL (70-110) 08/06/18 07:45 Hemoglobin A1c 5.8 % (4.2-6.5) 07/29/18 07:50 Calcium 9.0 mg/dL (8.4-10.5) 08/06/18 07:45 Magnesium 2.1 mg/dL (1.7-2.2) 07/28/18 11:30 Total Bilirubin 0.3 mg/dL (0.2-1.3) 08/06/18 07:45 GGT 156 U/L (8-78) H 07/30/18 05:30 AST 30 U/L (14-36) 08/06/18 07:45 ALT 18 U/L (7-56) 08/06/18 07:45 Alkaline Phosphatase 180 U/L (38-126) H 08/06/18 07:45 Lactate Dehydrogenase 430 U/L (333-699) 07/28/18 11:30 Total Creatine Kinase 48 U/L (35-230) 07/28/18 11:30 Troponin I < 0.01 ng/mL 07/28/18 22:23 Total Protein 7.8 g/dL (5.8-8.3) 08/06/18 07:45 Albumin 3.7 g/dL (3.0-4.8) 08/06/18 07:45 Globulin 4.1 gm/dL 08/06/18 07:45 Albumin/Globulin Ratio 0.9 (1.1-1.8) L 08/06/18 07:45 Triglycerides 143 mg/dL (35-160) 07/29/18 07:50 Cholesterol 140 mg/dL (130-200) 07/29/18 07:50 LDL Cholesterol Direct 87 mg/dL (0-129) 07/29/18 07:50 HDL Cholesterol 33 mg/dL (29-60) 07/29/18 07:50 Lipase 43 U/L (23-300) 07/29/18 16:00 Urine Color Yellow (YELLOW) 07/28/18 11:30 Urine Appearance Clear (CLEAR) 07/28/18 11:30 Urine pH 7.5 (4.7-8.0) 07/28/18 11:30 Ur Specific Castile 1.010 (1.005-1.035) 07/28/18 11:30 Urine Protein Negative mg/dL (<30 mg/dL) 07/28/18 11:30 Urine Glucose (UA) Negative mg/dL (NEGATIVE) 07/28/18 11:30 Urine Ketones Negative mg/dL (NEGATIVE) 07/28/18 11:30 Urine Blood Small (NEGATIVE) H 07/28/18 11:30 Urine Nitrate Negative (NEGATIVE) 07/28/18 11:30 Urine Bilirubin Negative (NEGATIVE) 07/28/18 11:30 Urine Urobilinogen 0.2 E.U./dL (<1 E.U./dL) 07/28/18 11:30 Ur Leukocyte Esterase Moderate Narinder/uL (NEGATIVE) H 07/28/18 11:30 Urine RBC 2 - 5 /hpf (0-2) 07/28/18 11:30 Urine WBC 15 - 20 /hpf (0-6) 07/28/18 11:30 Ur Epithelial Cells 4 - 5 /hpf (0-5) 07/28/18 11:30 Urine Bacteria Many (NEG) 07/28/18 11:30 - Hospital Course Hospital Course: Upon admission Mr. Feldman is a 58 year old female with a past medical history of SLE, hyperthyroidism, RA, CREST syndrome, gastritis, breast cancer s/p right lumpectomy who presented to the [facility] Emergency Department on 07/28 complaining of right-sided weakness and pain for 1-2 weeks. Patient described the pain as a sharp shooting pain from the head to foot on the right side of the body. Patient also complained of chest wall tenderness, pleuritic chest pain, nausea, dizziness, diarrhea, dysuria, and white floaters in her eyes. Per patient, she was seen by ophthalmology recently. Patient denied fever, chills, headaches, shortness of breath, cough, vomiting, and constipation. Patient admitted to smoking over 10 cigarettes per day. Patient stated that home medications included: flexeril, vitamin D, nitro-bid, alprazolam, oxycodone, fluticasone, methotrexate, dicyclomine, ranitidine, K-ER tablets, sucralfate, meloxicam, tramadol, diclofenac, and ventolin. Hospital course Chest x-ray revealed opacity at the lung base. EKG showed NSR 89 with QTc 486. Lumbar spine CT was ordered and showed moderate facet arthropathy at L3-4 and L4-5 without any acute findings. Head CT was ordered and showed no acute findings. An extremity US was ordered and was negative for DVT. Due to allergy to iodinated contrast dye, patient could not undergo CT with contrast of chest to rule out pulmonary embolism. V/Q scan could not be performed due to national shortage of radioisotope. Pulmonolgy was consulted and recommended- based on wells criteria score = 1 -that the patient follow-up for a V/Q scan as an outpatient. Neurology was consulted and recommended that the patient undergo MRI of the brain to rule out stroke. Brain MRI was unremarkable. Tylenol, oxycodone, and ibuprofen were started for pain control. Per neurology's request, lyrica was added for pain control. Patient continued to complain of abdominal pain. Abdominal US was ordered and revealed multiple bilateral renal cysts and a small nonobstructing calculus in lower pole of left kidney. Rib x-ray was ordered and showed subacute or chronic fractures of left 5th, 6th and 7th rib, but no acute R sided pathology. Chest/abdomen CT was ordered and showed bibasilar subsegmental infiltrates -atelectasis vs pneumonia. Patient was placed on levofloxacin. Duoneb was started for shortness of breath. Lovenox was started for DVT prophylaxis and protonix was started for GI prophylaxis. Miralax was started for constipation. Xanax, flexeril, dicyclomine, and sucralfate were continued from home medications. Patient complained of new onset headache. Repeat head CT showed no acute intracranial findings. Neurology after all imaging states that the pt likely has complex regional pain syndrome and was ok to have pt go to [facility] for strengthening. All of the findings, images and recommendations were explained to the pt and the pts family. Neurology signed off the case and per PT recs, pt is being sent to [facility]. Pt was explained the plan and pt expressed agreement with the plan for discharge to [facility]. Pt was given oppurtunity to have all questions and concerns addressed prior to discharge. Pt and family understands the plan and is in agreement with the discharge plan and instructions. Physical therapy was consulted and recommended that the patient attend sub-acute rehab. For a complete record of hospital course, please refer to medical record. Upon discharge Patient is to follow-up with primary care doctor, Dr. Dozier, within 3-5 days of discharge from [facility] facility. Patient is to undergo V/Q scan within one week of discharge. Patient is to establish care with a neurologist and water pump installer. The following are providers that accept patient's insurance: Dr. See Whitaker (neurologist) in [place], [place] phone number [phone] Dr. Mayco Shabazz (neurologist) in [place], [place] phone number [phone] Dr. Clement Rick (water pump installer) in [place], [place] phone number [phone] Dr. Troy Velazco (water pump installer) in [place], [place] phone number [phone] Dr. No Brennan (water pump installer) in [place], [place] phone number [phone] Patient is to resume home medications. Patient is to take newly prescribed medications only as directed. Patient is to stop smoking cigarettes. These instructions were explained to the patient, and the patient understood. All que stions and concers were again addressed prior to D/C and pt is in understanding and agreement with discharge and follow up instructions. Discharge Exam - Head Exam Head Exam: ATRAUMATIC, NORMAL INSPECTION, NORMOCEPHALIC - Eye Exam Eye Exam: EOMI, Normal appearance, PERRL - Respiratory Exam Respiratory Exam: NORMAL BREATHING PATTERN, UNREMARKABLE. absent: Accessory Muscle Use, Decreased Breath Sounds, Rales, Rhonchi, Wheezes, Respiratory Distress, Stridor - Cardiovascular Exam Cardiovascular Exam: RRR, +S1, +S2. absent: Gallop, Rubs - GI/Abdominal Exam GI & Abdominal Exam: Normal Bowel Sounds, Soft, Tenderness (present diffusely on the RUQ, murphys sign is negative), Unremarkable. absent: Firm, Guarding - Extremities Exam Extremities exam: normal capillary refill, normal inspection, pedal pulses present - Back Exam Back exam: NORMAL INSPECTION. absent: CVA tenderness (L), CVA tenderness (R) - Neurological Exam Neurological exam: Alert, Oriented x3 Additional comments: no motor sensory deficit noted on exam. - Psychiatric Exam Psychiatric exam: Normal Affect, Normal Mood - Skin Skin Exam: Dry, Intact, Normal Color, Warm Discharge Plan - Discharge Medications Prescriptions: Aspirin [Ecotrin] 81 mg PO DAILY #14 tabec Cyclobenzaprine [Flexeril] 5 mg PO TID PRN #42 tab PRN Reason: Muscle Spasm Docusate [Colace] 100 mg PO TID PRN #42 cap PRN Reason: Constipation Polyethylene Glycol 3350 [Miralax] 17 gm PO BID #28 packet Pregabalin [Lyrica] 75 mg PO TID #30 cap - Follow Up Plan Condition: STABLE Disposition: HOME/ ROUTINE Instructions: Chest Pain (ED) Additional Instructions: - Your D dimer was elevated in hospital. Since you are allergic to IV contrast and there is currently a nationwide shortage of isotope for a lung test, you will follow up outpatient for a ventilation perfusion scan in 2-4 weeks. - You will be going to a sub-acute rehab facility to help you regain your strength before going home, please be cooperative with all of the physical therapy as much as tolerable to help get you back on your feet quickly Special instructions: Please follow-up with your primary care doctor, Dr. Dozier, within 3-5 days. Please get a V/Q scan of your lungs within one week to make sure there is not a clot in your lungs. Please follow-up with a neurologist and a water pump installer. Here are a list of providers in the local area that accept your insurance: Follow up with your OBGYN or primary care doctor for the breast nodule on left. Dr. See Whitaker (neurologist) in [place], [place] phone number [phone] Dr. Mayco Shabazz (neurologist) in [place], [place] phone number [phone] Dr. Clement Rick (water pump installer) in [place], [place] phone number [phone] Dr. Troy Velazco (water pump installer) in [place], [place] phone number [phone] Dr. No Brennan (water pump installer) in [place], [place] phone number [phone] Please stop smoking cigarettes. Please continue taking your home medications as prescribed. If your symptoms worsen or return, please go to the nearest emergency department. Referrals: Sonia Dozier DO [Primary Care Provider] -
[2018-08-07] MEDS: Pantoprazole 40 mg EC Tab PO SCH (05:47)
[2018-08-07 08:09] LABS: BASO # 0.01 K/mm3 (0.0-2.0); BASO % 0.1 % (0.0-3.0); EOS # 0.7 (0.0-0.7); EOS % 9.3 % (1.5-5.0); GRAN # 3.99 (1.4-6.5); GRAN % 54.1 % (50.0-68.0); HEMOGLOBIN 12.7 g/dL (12.0-16.0); LYMPH # 1.9 (1.2-3.4); MEAN CELL VOLUME 87.2 fl (80.0-105.0); MEAN CORPUSCULAR HEMOGLOBIN 28.5 pg (25.0-35.0); MEAN CORPUSCULAR HGB CONC 32.6 g/dl (31.0-37.0); MEAN PLATELET VOLUME 8.7 fl (7.0-11.0); MONO # 0.9 (0.1-0.6); MONO % 11.5 % (1.0-6.0); RBC 4.46 10^6/uL (3.5-6.1); RED CELL DISTRIBUTION WIDTH 13.8 % (11.5-14.5); WHITE BLOOD COUNT 7.4 10^3/uL (4.5-11.0)
[2018-08-07 08:19] LABS: ALT/SGPT 21 U/L (7-56); AST/SGOT 31 U/L (14-36); BLOOD UREA NITROGEN 21 mg/dL (7-21); GFR NON-AFRICAN AMERICAN 51
[2018-08-07] MEDS: POLYETHYLENE GLYCOL 3350 17 GM/Dose PACKET PO SCH ×2 (09:33→17:04)
[2018-08-07] MEDS: oxyCODONE 5 mg Immediate Release Tab PO PRN (09:45)
[2018-08-07] MEDS: Enoxaparin 40 mg Syringe SC SCH (09:46)
[2018-08-07] MEDS: Sucralfate 1 gm/10 ml Oral Susp UD PO SCH ×2 (09:46→17:03)
[2018-08-07] MEDS ORDERED: Pneumococcal 23-Valent Vaccine IM ONE (13:57)
[2018-08-07 14:22] VITALS: BP 119/74; PULSE 95; TEMP 97.5; O2SAT 95
--- NOTE | 2018-08-07 15:27 | CP.PCM.DIS ---
<Tre Watkins - Last Filed: 08/07/18 15:27> Provider - Provider Date of Admission: 07/29/18 09:15 Attending physician: Valerie Skinner DO Primary care physician: Sonia Dozier DO Time Spent in preparation of Discharge (in minutes): 45 Diagnosis - Discharge Diagnosis (1) Right-sided abdominal pain of unknown cause Status: Acute (2) Right sided facial pain Status: Acute (3) Right-sided back pain Status: Acute (4) Chest pain Status: Acute (5) UTI (urinary tract infection) Status: Acute Hospital Course - Lab Results Lab Results: Micro Results 07/28/18 14:26 Blood Blood Culture - Final NO GROWTH AFTER 5 DAYS 07/28/18 14:26 Blood Gram Stain - Final TEST NOT PERFORMED 07/28/18 14:00 Blood Blood Culture - Final NO GROWTH AFTER 5 DAYS 07/28/18 14:00 Blood Gram Stain - Final TEST NOT PERFORMED 07/30/18 18:11 Urine Urine Culture - Final No Growth (<1,000 CFU/ML) 07/28/18 11:30 Urine,Clean Catch Urine Culture - Final Escherichia Coli Staphylococcus Epidermidis Most Recent Lab Values WBC 7.4 10^3/uL (4.5-11.0) 08/07/18 07:50 RBC 4.46 10^6/uL (3.5-6.1) 08/07/18 07:50 Hgb 12.7 g/dL (12.0-16.0) 08/07/18 07:50 Hct 38.9 % (36.0-48.0) 08/07/18 07:50 MCV 87.2 fl (80.0-105.0) 08/07/18 07:50 MCH 28.5 pg (25.0-35.0) 08/07/18 07:50 MCHC 32.6 g/dl (31.0-37.0) 08/07/18 07:50 RDW 13.8 % (11.5-14.5) 08/07/18 07:50 Plt Count 353 10^3/uL (120.0-450.0) 08/07/18 07:50 MPV 8.7 fl (7.0-11.0) 08/07/18 07:50 Gran % 54.1 % (50.0-68.0) 08/07/18 07:50 Lymph % (Auto) 25.0 % (22.0-35.0) 08/07/18 07:50 [place] % (Auto) 11.5 % (1.0-6.0) H 08/07/18 07:50 Eos % (Auto) 9.3 % (1.5-5.0) H 08/07/18 07:50 Baso % (Auto) 0.1 % (0.0-3.0) 08/07/18 07:50 Gran # 3.99 (1.4-6.5) 08/07/18 07:50 Lymph # (Auto) 1.9 (1.2-3.4) 08/07/18 07:50 [place] # (Auto) 0.9 (0.1-0.6) H 08/07/18 07:50 Eos # (Auto) 0.7 (0.0-0.7) 08/07/18 07:50 Baso # (Auto) 0.01 K/mm3 (0.0-2.0) 08/07/18 07:50 PT 10.9 SECONDS (9.4-12.5) 07/28/18 11:30 INR 0.95 07/28/18 11:30 APTT 28.1 Seconds (25.1-36.5) 07/28/18 11:30 D-Dimer, Quantitative 671 ng/mlDDU (0-243) H 07/28/18 11:30 Sodium 137 mmol/L (132-148) 08/07/18 07:50 Potassium 4.4 mmol/L (3.6-5.0) 08/07/18 07:50 Chloride 99 mmol/L (98-107) 08/07/18 07:50 Carbon Dioxide 30 mmol/L (21-33) 08/07/18 07:50 Anion Gap 12 (10-20) 08/07/18 07:50 BUN 21 mg/dL (7-21) 08/07/18 07:50 Creatinine 1.1 mg/dl (0.7-1.2) 08/07/18 07:50 Est GFR ( Amer) > 60 08/07/18 07:50 Est GFR (Non-Af Amer) 51 08/07/18 07:50 Random Glucose 124 mg/dL (70-110) H 08/07/18 07:50 Hemoglobin A1c 5.8 % (4.2-6.5) 07/29/18 07:50 Calcium 9.0 mg/dL (8.4-10.5) 08/07/18 07:50 Magnesium 2.1 mg/dL (1.7-2.2) 07/28/18 11:30 Total Bilirubin 0.3 mg/dL (0.2-1.3) 08/07/18 07:50 GGT 156 U/L (8-78) H 07/30/18 05:30 AST 31 U/L (14-36) 08/07/18 07:50 ALT 21 U/L (7-56) 08/07/18 07:50 Alkaline Phosphatase 184 U/L (38-126) H 08/07/18 07:50 Lactate Dehydrogenase 430 U/L (333-699) 07/28/18 11:30 Total Creatine Kinase 48 U/L (35-230) 07/28/18 11:30 Troponin I < 0.01 ng/mL 07/28/18 22:23 Total Protein 8.0 g/dL (5.8-8.3) 08/07/18 07:50 Albumin 4.0 g/dL (3.0-4.8) 08/07/18 07:50 Globulin 4.0 gm/dL 08/07/18 07:50 Albumin/Globulin Ratio 1.0 (1.1-1.8) L 08/07/18 07:50 Triglycerides 143 mg/dL (35-160) 07/29/18 07:50 Cholesterol 140 mg/dL (130-200) 07/29/18 07:50 LDL Cholesterol Direct 87 mg/dL (0-129) 07/29/18 07:50 HDL Cholesterol 33 mg/dL (29-60) 07/29/18 07:50 Lipase 43 U/L (23-300) 07/29/18 16:00 Urine Color Yellow (YELLOW) 07/28/18 11:30 Urine Appearance Clear (CLEAR) 07/28/18 11:30 Urine pH 7.5 (4.7-8.0) 07/28/18 11:30 Ur Specific Howe 1.010 (1.005-1.035) 07/28/18 11:30 Urine Protein Negative mg/dL (<30 mg/dL) 07/28/18 11:30 Urine Glucose (UA) Negative mg/dL (NEGATIVE) 07/28/18 11:30 Urine Ketones Negative mg/dL (NEGATIVE) 07/28/18 11:30 Urine Blood Small (NEGATIVE) H 07/28/18 11:30 Urine Nitrate Negative (NEGATIVE) 07/28/18 11:30 Urine Bilirubin Negative (NEGATIVE) 07/28/18 11:30 Urine Urobilinogen 0.2 E.U./dL (<1 E.U./dL) 07/28/18 11:30 Ur Leukocyte Esterase Moderate Narinder/uL (NEGATIVE) H 07/28/18 11:30 Urine RBC 2 - 5 /hpf (0-2) 07/28/18 11:30 Urine WBC 15 - 20 /hpf (0-6) 07/28/18 11:30 Ur Epithelial Cells 4 - 5 /hpf (0-5) 07/28/18 11:30 Urine Bacteria Many (NEG) 07/28/18 11:30 - Hospital Course Hospital Course: Upon admission Mr. Feldman is a 58 year old female with a past medical history of SLE, hyperthyroidism, RA, CREST syndrome, gastritis, breast cancer s/p right lumpectomy who presented to the [facility] Emergency Department on 07/28 complaining of right-sided weakness and pain for 1-2 weeks. Patient described the pain as a sharp shooting pain from the head to foot on the right side of the body. Patient also complained of chest wall tenderness, pleuritic chest pain, nausea, dizziness, diarrhea, dysuria, and white floaters in her eyes. Per patient, she was seen by ophthalmology recently. Patient denied fever, chills, headaches, shortness of breath, cough, vomiting, and constipation. Patient admitted to smoking over 10 cigarettes per day. Patient stated that home medications included: flexeril, vitamin D, nitro-bid, alprazolam, oxycodone, fluticasone, methotrexate, dicyclomine, ranitidine, K-ER tablets, sucralfate, meloxicam, tramadol, diclofenac, and ventolin. Hospital course Chest x-ray revealed opacity at the lung base. EKG showed NSR 89 with QTc 486. Lumbar spine CT was ordered and showed moderate facet arthropathy at L3-4 and L4-5 without any acute findings. Head CT was ordered and showed no acute findings. An extremity US was ordered and was negative for DVT. Due to allergy to iodinated contrast dye, patient could not undergo CT with contrast of chest to rule out pulmonary embolism. V/Q scan could not be performed due to national shortage of radioisotope. Pulmonolgy was consulted and recommended- based on wells criteria score = 1 -that the patient follow-up for a V/Q scan as an outpatient. Neurology was consulted and recommended that the patient undergo M RI of the brain to rule out stroke. Brain MRI was unremarkable. Tylenol, oxycodone, and ibuprofen were started for pain control. Per neurology's request, lyrica was added for pain control. Patient continued to complain of abdominal pain. Abdominal US was ordered and revealed multiple bilateral renal cysts and a small nonobstructing calculus in lower pole of left kidney. Rib x-ray was ordered and showed subacute or chronic fractures of left 5th, 6th and 7th rib, but no acute R sided pathology. Chest/abdomen CT was ordered and showed bibasilar subsegmental infiltrates -atelectasis vs pneumonia. Patient was placed on levofloxacin. Duoneb was started for shortness of breath. Lovenox was started for DVT prophylaxis and protonix was started for GI prophylaxis. Miralax was started for constipation. Xanax, flexeril, dicyclomine, and sucralfate were continued from home medications. Patient complained of new onset headache. Repeat head CT showed no acute intracranial findings. Neurology after all imaging states that the pt likely has complex regional pain syndrome and was ok to have pt go to [facility] for strengthening. All of the findings, images and recommendations were explained to the pt and the pts family. Neurology signed off the case and per PT recs, pt is being sent to [facility]. Pt was explained the plan and pt expressed agreement with the plan for discharge to [facility]. Pt was given oppurtunity to have all questions and concerns addressed prior to discharge. Pt and family understands the plan and is in agreement with the discharge plan and instructions. Physical therapy was consulted and recommended that the patient attend sub-acute rehab. For a complete record of hospital course, please refer to medical record. Upon discharge Patient is to follow-up with primary care doctor, Dr. Dozier, within 3-5 days of discharge from [facility] facility. Patient is to undergo V/Q scan within one week of discharge from facility. Patient is to establish care with a neurologist and ship purser. The following are providers that accept patient's insurance: Dr. See Whitaker (neurologist) in [place], [place] phone number [phone] Dr. Mayco Shabazz (neurologist) in [place], [place] phone number [phone] Dr. Clement Rick (ship purser) in [place], [place] phone number [phone] Dr. Troy Velazco (ship purser) in [place], [place] phone number [phone] Dr. No Brennan (ship purser) in [place], [place] phone number [phone] Patient is to resume home medications. Patient is to take newly prescribed medications only as directed. Patient is to stop smoking cigarettes. These instructions were explained to the patient, and the patient understood. All questions and concers were again addressed prior to D/C and pt is in understanding and agreement with discharge and follow up instructions. Discharge Exam - Head Exam Head Exam: ATRAUMATIC, NORMAL INSPECTION, NORMOCEPHALIC - Eye Exam Eye Exam: EOMI, Normal appearance, PERRL - Respiratory Exam Respiratory Exam: NORMAL BREATHING PATTERN, UNREMARKABLE. absent: Accessory Muscle Use, Decreased Breath Sounds, Rales, Rhonchi, Wheezes, Respiratory Distress, Stridor - Cardiovascular Exam Cardiovascular Exam: RRR, +S1, +S2. absent: Gallop, Rubs - GI/Abdominal Exam GI & Abdominal Exam: Hypoactive Bowel Sounds, Soft, Tenderness (present diffusely over R side of abdomen.). absent: Unremarkable - Back Exam Back exam: NORMAL INSPECTION. absent: CVA tenderness (L), CVA tenderness (R) - Neurological Exam Neurological exam: Alert, CN II-XII Intact, Oriented x3 Additional comments: no motor sensory deficit noted on exam. - Psychiatric Exam Psychiatric exam: Normal Affect, Normal Mood - Skin Skin Exam: Dry, Intact, Normal Color, Warm Discharge Plan - Discharge Medications Prescriptions: RX: Aspirin [Ecotrin] 81 mg PO DAILY #14 tabec Bisacodyl [Dulcolax] 10 mg RC DAILY PRN #3 supp.rect PRN Reason: Constipation RX: Cyclobenzaprine [Flexeril] 5 mg PO TID PRN #42 tab PRN Reason: Muscle Spasm Docusate Sodium [Colace] 100 mg PO BID #10 capsule RX: Oxycodone HCl 5 mg PO BID PRN #10 tablet PRN Reason: Pain, Severe (8-10) Polyethylene Glycol 3350 [Miralax] 17 gm PO DAILY #5 powd.pack RX: Pregabalin [Lyrica] 75 mg PO TID #30 cap - Follow Up Plan Condition: STABLE Disposition: HOME/ ROUTINE Instructions: Lupus, Flu, Preventing Falls in the Older Adult, Pneumonia, Adult (DC), Preventing Falls, Influenza Virus Vaccine (Inactivated), Influenza Virus Vaccine (Live/Attenuated) Additional Instructions: - Your D-dimer was elevated in the hospital. Since you are allergic to IV contrast and there is currently a nationwide shortage of isotope for a lung test, you will follow up outpatient for a ventilation perfusion scan in 2 weeks with your primary care doctor. - You will be going to a sub-acute rehab facility to help you regain your strength before going home, please be cooperative with all of the physical therapy as much as tolerable. - We will be prescribing a dulcolax suppository please use only as needed for constipation. Special instructions: Please follow-up with your primary care doctor, Dr. Dozier, within 3-5 days: - Please get a V/Q scan of your lungs within 2 weeks to make sure there is not a clot in your lungs. - Your alkaline phosphatase is elevated, likely due to rib fracture, Given your New left breast lump, it is important for you to get the biopsy and imaging for your left breast lump. You will need to continue to follow up with your camera systems engineer. Please follow-up with a neurologist and a ship purser within one week. Here are a list of providers in the local area that accept your insurance: Follow up with your OBGYN or primary care doctor for the breast nodule on left with on one week. Dr. Whitaker (neurologist) in [place], [place] phone number [phone] Dr. Mayco Shabazz (neurologist) in [place], [place] phone number [phone] Dr. Clement Rick (ship purser) in [place], [place] phone number [phone] Dr. Troy Velazco (ship purser) in [place], [place] phone number [phone] Dr. No Brennan (ship purser) in [place], [place] phone number [phone] Please stop smoking cigarettes. Please continue taking your home medications as prescribed. You are also given dulcolax suppository as needed for 3 days, for constipation. If your symptoms worsen or return, please go to the nearest emergency department. Referrals: Cristiano Whitaker MD [Staff Provider] - Sonia Dozier DO [Primary Care Provider] - <Valerie Skinner - Last Filed: 08/08/18 04:01> Provider - Provider Date of Admission: 07/29/18 09:15 Attending physician: Valerie Skinner DO Primary care physician: Sonia Dozier DO Hospital Course - Lab Results Lab Results: Micro Results 07/28/18 14:26 Blood Blood Culture - Final NO GROWTH AFTER 5 DAYS 07/28/18 14:26 Blood Gram Stain - Final TEST NOT PERFORMED 07/28/18 14:00 Blood Blood Culture - Final NO GROWTH AFTER 5 DAYS 07/28/18 14:00 Blood Gram Stain - Final TEST NOT PERFORMED 07/30/18 18:11 Urine Urine Culture - Final No Growth (<1,000 CFU/ML) 07/28/18 11:30 Urine,Clean Catch Urine Culture - Final Escherichia Coli Staphylococcus Epidermidis Most Recent Lab Values WBC 7.4 10^3/uL (4.5-11.0) 08/07/18 07:50 RBC 4.46 10^6/uL (3.5-6.1) 08/07/18 07:50 Hgb 12.7 g/dL (12.0-16.0) 08/07/18 07:50 Hct 38.9 % (36.0-48.0) 08/07/18 07:50 MCV 87.2 fl (80.0-105.0) 08/07/18 07:50 MCH 28.5 pg (25.0-35.0) 08/07/18 07:50 MCHC 32.6 g/dl (31.0-37.0) 08/07/18 07:50 RDW 13.8 % (11.5-14.5) 08/07/18 07:50 Plt Count 353 10^3/uL (120.0-450.0) 08/07/18 07:50 MPV 8.7 fl (7.0-11.0) 08/07/18 07:50 Gran % 54.1 % (50.0-68.0) 08/07/18 07:50 Lymph % (Auto) 25.0 % (22.0-35.0) 08/07/18 07:50 [place] % (Auto) 11.5 % (1.0-6.0) H 08/07/18 07:50 Eos % (Auto) 9.3 % (1.5-5.0) H 08/07/18 07:50 Baso % (Auto) 0.1 % (0.0-3.0) 08/07/18 07:50 Gran # 3.99 (1.4-6.5) 08/07/18 07:50 Lymph # (Auto) 1.9 (1.2-3.4) 08/07/18 07:50 [place] # (Auto) 0.9 (0.1-0.6) H 08/07/18 07:50 Eos # (Auto) 0.7 (0.0-0.7) 08/07/18 07:50 Baso # (Auto) 0.01 K/mm3 (0.0-2.0) 08/07/18 07:50 PT 10.9 SECONDS (9.4-12.5) 07/28/18 11:30 INR 0.95 07/28/18 11:30 APTT 28.1 Seconds (25.1-36.5) 07/28/18 11:30 D-Dimer, Quantitative 671 ng/mlDDU (0-243) H 07/28/18 11:30 Sodium 137 mmol/L (132-148) 08/07/18 07:50 Potassium 4.4 mmol/L (3.6-5.0) 08/07/18 07:50 Chloride 99 mmol/L (98-107) 08/07/18 07:50 Carbon Dioxide 30 mmol/L (21-33) 08/07/18 07:50 Anion Gap 12 (10-20) 08/07/18 07:50 BUN 21 mg/dL (7-21) 08/07/18 07:50 Creatinine 1.1 mg/dl (0.7-1.2) 08/07/18 07:50 Est GFR ( Amer) > 60 08/07/18 07:50 Est GFR (Non-Af Amer) 51 08/07/18 07:50 Random Glucose 124 mg/dL (70-110) H 08/07/18 07:50 Hemoglobin A1c 5.8 % (4.2-6.5) 07/29/18 07:50 Calcium 9.0 mg/dL (8.4-10.5) 08/07/18 07:50 Magnesium 2.1 mg/dL (1.7-2.2) 07/28/18 11:30 Total Bilirubin 0.3 mg/dL (0.2-1.3) 08/07/18 07:50 GGT 156 U/L (8-78) H 07/30/18 05:30 AST 31 U/L (14-36) 08/07/18 07:50 ALT 21 U/L (7-56) 08/07/18 07:50 Alkaline Phosphatase 184 U/L (38-126) H 08/07/18 07:50 Lactate Dehydrogenase 430 U/L (333-699) 07/28/18 11:30 Total Creatine Kinase 48 U/L (35-230) 07/28/18 11:30 Troponin I < 0.01 ng/mL 07/28/18 22:23 Total Protein 8.0 g/dL (5.8-8.3) 08/07/18 07:50 Albumin 4.0 g/dL (3.0-4.8) 08/07/18 07:50 Globulin 4.0 gm/dL 08/07/18 07:50 Albumin/Globulin Ratio 1.0 (1.1-1.8) L 08/07/18 07:50 Triglycerides 143 mg/dL (35-160) 07/29/18 07:50 Cholesterol 140 mg/dL (130-200) 07/29/18 07:50 LDL Cholesterol Direct 87 mg/dL (0-129) 07/29/18 07:50 HDL Cholesterol 33 mg/dL (29-60) 07/29/18 07:50 Lipase 43 U/L (23-300) 07/29/18 16:00 Urine Color Yellow (YELLOW) 07/28/18 11:30 Urine Appearance Clear (CLEAR) 07/28/18 11:30 Urine pH 7.5 (4.7-8.0) 07/28/18 11:30 Ur Specific Howe 1.010 (1.005-1.035) 07/28/18 11:30 Urine Protein Negative mg/dL (<30 mg/dL) 07/28/18 11:30 Urine Glucose (UA) Negative mg/dL (NEGATIVE) 07/28/18 11:30 Urine Ketones Negative mg/dL (NEGATIVE) 07/28/18 11:30 Urine Blood Small (NEGATIVE) H 07/28/18 11:30 Urine Nitrate Negative (NEGATIVE) 07/28/18 11:30 Urine Bilirubin Negative (NEGATIVE) 07/28/18 11:30 Urine Urobilinogen 0.2 E.U./dL (<1 E.U./dL) 07/28/18 11:30 Ur Leukocyte Esterase Moderate Narinder/uL (NEGATIVE) H 07/28/18 11:30 Urine RBC 2 - 5 /hpf (0-2) 07/28/18 11:30 Urine WBC 15 - 20 /hpf (0-6) 07/28/18 11:30 Ur Epithelial Cells 4 - 5 /hpf (0-5) 07/28/18 11:30 Urine Bacteria Many (NEG) 07/28/18 11:30 Attending/Attestation - Attestation I have personally seen and examined this patient.: Yes I have fully participated in the care of the patient.: Yes I have reviewed all pertinent clinical information, including history, physical exam and plan: Yes Notes (Text): Patient seen and examined by me with resident 11:20AM on 08/07/18. Case including discharge plan discussed with resident. Agree with above with following additions/corrections. Patient is a 58-year-old female past medical history significant for SLE, thyroid nodules, rheumatoid arthritis, CREST syndrome, gastritis, anxiety, and breast cancer status post right lumpectomy that presented to the emergency room with right sided pain and weakness. Please see H&P for full details. Patient was admitted with pleuritic chest pain, elevated d-dimer, right sided weakness, dysphasia, history of gastritis, UTI, history of breast cancer, CREST syndrome, SLE, hypokalemia, and anxiety. Neurology was consulted. Pulmonary was consulted. Chest pain was pleuritic and reproducible. Troponins were within normal limits. D-dimer was elevated at 671. She was unable to get a CTA chest secondary to allergy to IV contrast. She was unable to get a VQ scan secondary to nation wide shortage of isotope for nuclear scan. Per pulmonary, patient is low risk or PE and patient can have VQ scan done as outpatient. Bilateral lower extremity venous Dopplers negative for DVT. Chest x-ray per radiologist showed opacity at right base, possibly some segmental atelectasis versus pneumonia, possible small right pleural effusion, mildly elevated right hemidiaphragm. Chest CT per radiologist showed no evidence of splenic hematoma, bibasilar subsegmental infiltrates with an air bronchograms right greater than left, atelectasis versus developing pneumonia. Rib x-rays per radiologist showed displaced fractures are seen of the left fifth, sixth, and seventh ribs, there is some callus formation around the fractures, the fractures are subacute or chronic. She was treated with Levaquin for both UTI and possible pneumonia for 7 days. Patient was seen by neurology for right-sided weakness, pain, and right leg and foot numbness. CVA was ruled out. Head CT per radiologist showed no acute intracranial abnormality. MRI brain per radiologist showed unremarkable noncontrast enhanced MRI of the brain. Lumbar spine CT per radiologist showed moderate facet arthropathy at L3-L4 and L4-L5, no acute findings. Per neurology likely neuropathic pain. Patient was started on Lyrica per neurology. Patient was seen by physical therapy who recommended subacute rehabilitation. Patient also complained of a headache after hitting her head on the TV in the hospital room. Repeat head CT was done and per radiologist showed no acute intracranial findings. Patient also complained of dysphagia. She was seen by speech and swallow and was placed on a dysphagia diet. This is chronic and patient does follow up with a camera systems engineer as an outpatient. Patient was continued on home Carafate and dicyclomine for history of chronic abdominal pain. Abdominal ultrasound per radiologist showed complex appearing fluid collection adjacent to the spleen, rule out hematoma versus other pathology; multiple bilateral renal cysts; small nonobstructing calculus that was seen lower pole collecting system left kidney on prior CT scan not appreciated on this study; suspect fatty hepatic infiltration. CT abdomen and pelvis showed no splenic hematoma, no acute findings. Patient was also continued on medication for anxiety. Patient had right rest ultrasound which per radiologist showed BI-RADS 1 (negative). She stated that she does have a breast lump on her left breast that she is following up with her doctor as an outpatient. She was given names of ship purser that she can follow-up with for history of SLE and CREST syndrome. Also had constipation. Patient was given lactulose prior to discharge. Was sent with Colace, MiraLAX, and Dulcolax suppositories as needed. Patient was cleared for discharge by all consultants. Patient was discharged to subacute rehabilitation. On day of discharge, patient stated that she was feeling ok. Patient states she was feeling a little anxious because her sisters came to visit her last night and told her that her "symptoms are all in my head." Patient states she is still having some right sided pain but improved. Still with some right leg numbness. No chest pain or shortness of breath. No nausea, vomiting, or abdominal pain. No fevers or chills. No bowel movement. However, patient states she does not feel constipated. hysical exam: General: Awake and lying in bed in no acute distress HEENT: Normocephalic, atraumatic. Extraocular muscles intact, pupils equal and reactive, no scleral icterus. Oropharynx is pink and moist. Neck is supple. Cardiovascular: Regular rhythm. Normal S1 and S2. No rubs or gallops appreciated Pulmonary: Normal respiratory effort. No rhonchi, rales, or wheezing appreciated. Gastrointestinal: Soft, nondistended. Positive right upper quadrant tenderness improved. Positive bowel sounds all 4 quadrants. Still with positive out of proportion voluntary guarding. Musculoskeletal: Moves all extremities. No calf tenderness. No CVA tenderness. No edema appreciated Central nervous system: AAO x3, CN 2-12 grossly intact. Right side upper and lower extremity weakness when compared to the left, however, this may be secondary to patient's effort. Dermatologic: Skin warm and dry. Please see chart for full details. Follow up instructions: Patient will need to follow-up with her primary care doctor within 2 weeks for VQ scan. Patient follow-up with primary care doctor within 3-5 days. Patient to follow-up with her doctor for her left breast lump. Continue to follow with her camera systems engineer. Patient follow-up with a neurologist and ship purser in 1 week. Patient was provided with names of neurologists and ship purser that accepts patient's health insurance.. Jocelyn ent to follow-up with her TREE [employer]TER or primary care doctor for breast nodule in the left within 1 week. Counseled on tobacco cessation. All Instructions explained to patient in detail. Patient both understands and agrees to all instructions. Written instructions also given. Time spent in discharging the patient including chart review, medication reconciliation, discussion with the patient, certified medical coding specialist, consultants, accepting hospital, and nursing staff was 50 minutes.
== END 2018-08-07 18:10 | DRG 346 ==
LOC: ED 09:09 → ERH 16:35 → 5RNO 21:33 → OBSVTOIN 07-29 09:15 → INTOOBSV 07-29 09:15 → 5RNO 08-02 12:40
PROVIDERS: ADMIT Internal Medicine; ATTEND Hospitalist
DX: M32.9 Systemic lupus erythematosus, unspecified (principal); R07.81 Pleurodynia; M34.1 CR(E)ST syndrome; N39.0 Urinary tract infection, site not specified; J18.9 Pneumonia, unspecified organism; R51 Headache; M54.9 Dorsalgia, unspecified; E87.6 Hypokalemia; E05.20 Thyrotoxicosis with toxic multinodular goiter without thyrotoxic crisis or storm; G62.9 Polyneuropathy, unspecified; R13.10 Dysphagia, unspecified; N28.1 Cyst of kidney, acquired; B96.20 Unspecified Escherichia coli [E. coli] as the cause of diseases classified elsewhere; M06.9 Rheumatoid arthritis, unspecified; K21.9 Gastro-esophageal reflux disease without esophagitis; K59.00 Constipation, unspecified; N63.0 Unspecified lump in unspecified breast; K29.70 Gastritis, unspecified, without bleeding; F17.210 Nicotine dependence, cigarettes, uncomplicated; F41.9 Anxiety disorder, unspecified; S22.42XD Multiple fractures of ribs, left side, subsequent encounter for fracture with routine healing; W19.XXXD Unspecified fall, subsequent encounter; Z85.3 Personal history of malignant neoplasm of breast; Z91.041 Radiographic dye allergy status